=== PATIENT | female | born 1965 | race Two or more races ===

== ENCOUNTER 2020-07-15 11:01 | Outpatient (REF) | payer MEDICARE, MEDICAID, SELFPAY ==
[2020-07-15 11:28] LABS: MANUAL DIFF FLAG NO
[2020-07-15 11:33] LABS: Basophils Absolute Auto 0.1 X10*3/uL (0.0-0.2); Eosinophils Absolute Auto 0.1 X10*3/uL (0.0-0.4); Eosinophils Percent Auto 1.5 % (0-4); Hematocrit 45.6 % (37-47); Hemoglobin 14.9 g/dl (12.0-16.0); Imm Gran Abs Auto 0.03 X10*3/uL (0.00-0.03); Imm Gran Pct Auto 0.4 % (0.0-0.4); Lymphocytes Absolute Auto 3.3 X10*3/uL (1.2-4.9); Mean Corpuscular HGB Conc 32.7 g/dl (31.0-35.0); Mean Corpuscular Hemoglobin 29.2 pg (27.0-33.0); Mean Corpuscular Volume 89.2 fL (80-98); Mean Platelet Volume 8.9 fL (9.4-12.3); Monocytes Absolute Auto 0.6 X10*3/uL (0.1-1.2); Monocytes Percent Auto 7.5 % (2-11); Neutrophils Absolute Auto 4.3 X10*3/uL (2.0-8.3); Neutrophils Percent Auto 50.6 % (45-73); Platelet Count 339 X10*3/uL (160-400); Red Blood Count 5.11 X10*6/uL (4.20-5.50); Red Cell Distribution Width 13.2 % (11.0-16.0); White Blood Count 8.4 X10*3/uL (4.8-10.8)
[2020-07-15 12:11] LABS: Alanine Aminotransferase 15 U/L (0-31); Alkaline Phosphatase 66 U/L (39-117); Anion Gap 12 (12-20); Aspartate Amino Transferase 19 U/L (5-31); Bilirubin Total 0.6 mg/dL (0.0-1.0); Blood Urea Nitrogen 18 mg/dL (9-16); Calcium 8.9 mg/dL (8.4-10.2); Carbon Dioxide 27 mmol/L (22-29); Chloride 106 mmol/L (96-108); Estimated Glomerular Filt Rate 57; Glucose Fasting 86 mg/dL (60-99); Potassium 4.5 mmol/L (3.3-5.1); Sodium 140 mmol/L (135-145); Total Protein 6.4 g/dL (6.5-8.0)
[2020-07-15 12:21] LABS: TSH reflex Free T4 1.67 uIU/mL (0.32-4.0)
== END 2020-07-15 11:02 | disposition home or self-care (01) ==
LOC: HO.LAB 11:01
PROVIDERS: PCP Internal Medicine; Visit Provider Internal Medicine
DX: R53.82 Chronic fatigue, unspecified (principal); R56.9 Unspecified convulsions
CPT/HCPCS: 36415; 80053; 80177; 84443; 85025

== ENCOUNTER 2020-07-20 08:51 | Outpatient (REF) | payer MEDICARE, MEDICAID, SELFPAY ==
--- NOTE | 2020-07-20 15:01 | PFT_ITS ---
INDICATION: Shortness of breath. SPIROMETRY: The FEV1 to FVC of 88% with an FEV1 of 2.19 L, which is 86% predicted and an FVC of 2.49 L, which is 79% predicted. No significant response to bronchodilators noted. Maximum voluntary ventilation 115% predicted. LUNG VOLUMES: Total lung capacity 85% predicted with a residual volume of 78% predicted and an expiratory reserve volume of 55% predicted. DIFFUSION CAPACITY: DLCO 59% predicted. COMPARISON: None. INTERPRETATION: No obstructive nor restrictive ventilatory defects have been identified. No significant response to bronchodilators noted. Normal maximum voluntary ventilation. However, the patient has isolated moderate diffusion impairment, need to consider occult interstitial lung conditions versus pulmonary vascular conditions. Should also correct for hemoglobin as it can affect this diffusion calculation. Consider additional imaging and potentially echocardiogram. Clinical correlation warranted. Yuriy Ashley MD MR/MODL / [id number]
== END 2020-07-20 08:52 | disposition home or self-care (01) ==
LOC: HO.RESP 08:51
PROVIDERS: Visit Provider Internal Medicine
DX: R06.02 Shortness of breath (principal)
CPT/HCPCS: 94060; 94727; 94729

== ENCOUNTER 2020-08-11 12:58 | Outpatient (REF) | payer MEDICARE, MEDICAID, SELFPAY ==
--- NOTE | ~2020-08-11 | MM_ITS ---
EXAMINATION: MM SCREENING DIGITAL BREAST TOMOSYNTHESIS, BILATERAL CLINICAL INFORMATION: Screening. Asymptomatic. History right stereotactic INTACT biopsy 12/21/2016 (fragments of benign breast tissue with a focus of adenosis containing several coarse microcalcifications). History left stereotactic biopsy 10/06/2014 (benign breast tissue with a few tiny microcalcifications present and a benign breast tissue). The lifetime risk of breast cancer based on the Tyrer-Cuzick Model is 10%. COMPARISON: Mammography: 08/06/2019, 07/31/2018, 12/21/2016, 12/12/2016, at 29/08/2016; targeted left breast ultrasound 07/31/2018. TECHNIQUE: Digital mammography is performed in craniocaudal and mediolateral oblique views along with computer-aided detection (CAD). Digital breast tomosynthesis is performed in implant-displaced craniocaudal and implant-displaced mediolateral oblique views along with computer-aided detection (CAD). Synthesized 2D images are generated from the tomosynthesis. Additional implant displaced left exaggerated CC view is provided. FINDINGS: There are scattered areas of fibroglandular density (ACR BI-RADS breast composition Category b). There are bilateral implants. The implant contours are smooth and similar to prior studies. Right breast has biopsy clip marker posterior 1:00 position with benign oval coarse calcification inferior anterior activity left. There is no interval mass or architectural abnormality or abnormal calcifications right breast. Left breast has new 2 cm lobulated mass with ill-defined margins posterior upper outer quadrant and with associated overlying heterogeneous calcifications. Findings represent change from prior exam. There is an old biopsy clip marker more anteriorly upper outer left breast with small adjacent oil cyst and a known cyst in vicinity of biopsy and decreased in size since 2019. The axilla are similar to prior studies. Skin contours are smooth. MM/MM tomosynthesis screen imp BI IMPRESSION: 1. Left: New lobulated mass with associated heterogeneous calcifications posterior upper outer quadrant. 2. Right: No mammographic evidence of malignancy. ASSESSMENT: BI-RADS 0: Incomplete - Need Additional Imaging Evaluation RECOMMENDATION: 1. Additional views of the left breast (magnification CC, magnification ML). 2. Targeted ultrasound targeted ultrasound left breast. 3. Radiology department staff will contact the patient for additional imaging. This patient's information was entered into a reminder system with a target due date for their next mammogram.
== END 2020-08-11 12:59 | disposition home or self-care (01) ==
LOC: HO.MAMMO 12:58
PROVIDERS: PCP Internal Medicine; Visit Provider Internal Medicine
DX: Z12.31 Encounter for screening mammogram for malignant neoplasm of breast (principal)
CPT/HCPCS: 77063; 77067

== ENCOUNTER 2020-09-02 13:00 | Outpatient (RCR) | payer MEDICARE, MEDICAID, SELFPAY ==
--- NOTE | 2020-07-22 15:54 | MHC.PT.EP ---
[facility] [place] Office [place] Office [place] Office [address] Ross Chavez 140 [facility] [phone] F: [phone] F: [phone] F: [phone] F: [phone] Physical Therapy Plan of Care Date of Evaluation: 07/22/20 Date of Surgery: Diagnosis: leg weakness Assessment: The patient reports LE weakness that is making her fearful to be alone in public. She had exaggerated reflexes in both UE and LE at 3+. Her LE strength was generally functional with some weakness noted in her ankles. Her balance on foam surfaces was impaired and she lost her balance with head movement during static balance. The patient reports some issues with urinary incontinence with stress and urge. The patient has been treated for seizures in the past. She reports no Cardiac history. She will benefit from balance retraining, Pelvic floor retraining, LE strengthening as needed. I will report hyperreflexia to her primary MD. The patient seems genuine in her report and symptom presentation. Frequency and Duration: The patient will be seen 2x/week x 4 weeks Short Term Goals: 1. Pt to be able to correctly activate her PFM Resourcing Consultant Goals: 1. Pt to be able to have improved static balance on soft foam surfaces. 2. Pt to be able to successful demonstrate getting off the floor and functional movements such as squatting, bending. Treatment Plan: Modalities to reduce pain, spasms and effusion. Manual therapy to restore motion and function. Therapeutic exercise to improve strength and flexibility. Neuromuscular re-education for posture and balance. Therapeutic activities to return to functional activities of daily living. Electronically signed by: Isidra Stern PT DPT Please sign and return to therapist. Thank you for your referral.
--- NOTE | 2020-08-06 16:36 | MHC.PT.RE ---
[facility] [place] Office [place] Office [place] Office [address] Ross Chavez 140 [facility] [phone] F: [phone] F: [phone] F: [phone] F: [phone] Physical Therapy Re-evaluation Diagnosis: Urinary Incontinence, Pelvic Floor Rehabilitation Date of Surgery: Date of Evaluation: 08/06/20 Treatments to Date: 2 Cancellations to Date: 1 No Shows to Date: Subjective: I have bad urinary incontinence. It is very limiting to my life. I have incontinence with sneezing, coughing, laughing, jumping, running, and going down stairs. My urine stream is also altered sometimes when I pee and it stops and starts intermittently. Otherwise my knees are doing better. I have been doing my homework. Pain Score: 0 Pain Location: Objective Measures: PFM- 3 (no squeeze pressure from sides, only top and a lift 08/15/11/156 grade 2 Pelvic organ prolapse from anterior wall ( likely cystocele) I recommended Gynecology f/u. Assessment: The patient had poor awareness and control of her pelvic floor muscles and trA. Paired with her reported incontinence and feeling of heaviness in her pelvis. I believe she would benefit from pelvic floor Physical Therapy. Pt had grade 3 MMT of PFM. PERF scale: .Pt had poor coordination with quick contractions and had a delayed reaction to quick contractions. Pt lost contraction of PFM as soon as I added a functional movement such as a bridge, or leg lift. Pt also showed compensatory strategies during functional movement such as gluteal squeeze instead of PFM contraction. Pt reports no pain with penetration, but sex is not enjoyable. We discussed clitoral stimulation and the use of lubrication during intercourse. Pt given an extensive HEP including quick and long contractions of the PF. Pt will need to improve coordination and strength and slowly incorporate functional movements with PFM. Short Term Goals: 1. Pt to be able to correctly activate her PFM to allow improved support to bowel and bladder. 2. Pt to be able to demonstrate a pre contraction before a cough Game Agent Goals: 1. Pt to be able to show improved PFM contraction during functional movements such as a bridge or squat to help prevent or limit POP. 2. Pt to reduce # of episodes of NADJA during the day by 50% to help improve quality of life and reduce pad usage. 3. Pt to be independent with her final HEP for PFM in order to help maintain gains made in therapy. Frequency and Duration: The patient will be seen 2x/week x 4 weeks Treatment Plan: Therapeutic Exercise Dynamic Therapeutic Activities Neuromuscular Re-ed Manual Therapies Home Exercise Program Patient Education Electrical Stimulation PFM contraction including short and long contractions, TRA contraction, Slowly incorporate functional training with PFM contraction, coordination of PFM contraction. Start with hips elevated and progress to standing as pt is able. Reviewed/ Agreed with Student Documentation: Therapist: Electronically signed by: Isidra Stern PT DPT Please sign and return to therapist. Thank you for your referral.
== END 2020-10-09 08:00 | disposition home or self-care (01) ==
LOC: HO.PT 13:00
PROVIDERS: PCP Internal Medicine; Visit Provider Internal Medicine
DX: R29.898 Other symptoms and signs involving the musculoskeletal system (principal)
CPT/HCPCS: 97110; 97112; 97140; 97163; 97530

== ENCOUNTER 2020-09-04 12:15 | Outpatient (REF) | payer MEDICARE, MEDICAID, SELFPAY ==
--- NOTE | ~2020-09-04 | US_ITS ---
EXAMINATION: US DIAGNOSTIC ULTRASOUND BREAST, LEFT CLINICAL INFORMATION: Left breast mass upper outer aspect.. COMPARISON: Mammography of same day as well as studies dating back to September 18, 2014. TECHNIQUE: Ultrasound of the breast is performed with real-time arenas scale imaging and color Doppler. FINDINGS: Targeted ultrasound evaluation of the upper outer quadrant demonstrated 2 hypoechoic lesions. At the 1:00 position approximately 8 cm from nipple there is a 3 x 3 x 2 cm irregularly marginated hypoechoic mass containing calcifications and with internal vascularity. No distal sound enhancement or distal sound shadowing was appreciated. The lesion is very suspicious for malignancy. At the 2:00 position approximately 6 cm from the nipple there is a circumscribed hypoechoic lesion measuring 8 x 8 x 9 mm in size without internal vascularity and without definite distal sound shadowing or enhancement. Results are discussed with the patient at time of visit. US/US breast LT limited IMPRESSION: Very suspicious irregular marginated mass with calcifications and internal vascularity at the 1:00 position of the left breast approximately 8 cm from nipple measuring 3 cm in maximum dimension. The second circumscribed nodule 2:00 position approximately 6 cm from the nipple which may represent a daughter lesion. At time of study the axilla was not examined and therefore at the time of ultrasound-guided biopsy recommended imaging of the axilla for abnormal lymph nodes and if there is an abnormal lymph node present recommend ultrasound-guided core biopsy of both left breast lesions and lymph node. ASSESSMENT: BI-RADS 5: Highly Suggestive of Malignancy RECOMMENDATION: Ultrasound-guided biopsy of 2 left breast lesions. If abnormal axillary lymph node is present recommend biopsy of that at same time.
--- NOTE | ~2020-09-04 | MM_ITS ---
EXAMINATION: MM DIAGNOSTIC DIGITAL MAMMOGRAPHY, LEFT TARGETED LEFT BREAST ULTRASOUND CLINICAL INFORMATION: Left breast density with calcifications upper outer aspect. COMPARISON: Mammography: 08/11/2020 and studies dating back to 09/18/2014. TECHNIQUE: Digital mammography is performed in the following views: Spot magnification views of the left breast in craniocaudal and 90 degree mediolateral views. Targeted left breast ultrasound. FINDINGS: There are scattered areas of fibroglandular density (ACR BI-RADS breast composition Category b). Within the upper outer aspect of the left breast there is an irregularly marginated density containing pleomorphic calcifications. The calcifications did not layer on 90 degree mediolateral view. Targeted ultrasound evaluation of the upper outer quadrant demonstrated 2 hypoechoic lesions. At the 1 o'clock position approximately 8 cm from nipple there is a 3 x 3 x 2 cm irregularly marginated hypoechoic mass containing calcifications and with internal vascularity. No distal sound enhancement or distal sound shadowing was appreciated. The lesion is very suspicious for malignancy. At the 2 o'clock position approximately 6 cm from the nipple there is a circumscribed hypoechoic lesion measuring 8 x 8 x 9 mm in size without internal vascularity and without definite distal sound shadowing or enhancement. Results are discussed with the patient at time of visit. MM/MM added views LT IMPRESSION: Very suspicious irregular marginated mass with calcifications and internal vascularity at the 1 o'clock position of the left breast approximately 8 cm from nipple measuring 3 cm in maximum dimension. Second circumscribed nodule 2 o'clock position approximately 6 cm from the nipple which may represent a daughter lesion. At time of study the axilla was not examined and therefore at time of ultrasound-guided biopsy recommend imaging of the axilla for abnormal lymph nodes and if there is an abnormal lymph node present recommend ultrasound-guided core biopsy of both left breast lesions and lymph node. ASSESSMENT: BI-RADS 5: Highly Suggestive of Malignancy RECOMMENDATION: Ultrasound-guided biopsy of 2 left breast lesions. If abnormal axillary lymph node is present recommend biopsy of that at same time.
== END 2020-09-04 12:16 | disposition home or self-care (01) ==
LOC: HO.MAMMO 12:15
PROVIDERS: PCP Internal Medicine; Visit Provider Internal Medicine
DX: R92.1 Mammographic calcification found on diagnostic imaging of breast (principal)
CPT/HCPCS: 76642; 77065

== ENCOUNTER 2020-09-10 09:26 | Outpatient (REF) | payer MEDICARE, MEDICAID, SELFPAY ==
--- NOTE | ~2020-09-10 | MM_ITS ---
PROCEDURE: US GUIDED BREAST BIOPSY, LEFT x 2 MM DIAGNOSTIC IMPLANT, LEFT CLINICAL INFORMATION: Very suspicious left breast mass upper outer quadrant with prominent vascularity and calcifications. A second smaller lesion in the upper outer aspect of the left breast closer to the nipple. COMPARISON: 09/04/2020 and studies dating back to 09/18/2014 PROCEDURAL DETAILS: The details of the procedure, as well as the risks, benefits, and alternatives to the procedure were explained to the patient in detail and all of her questions were answered, after which written informed consent was obtained. Site and side were confirmed. Prior to procedure, ultrasound evaluation of the left axilla was performed to look for abnormal-appearing lymph nodes that may require biopsy. No abnormal lymph nodes were identified. No cortical thickening or lobulation. Prior to the procedure, sonography revealed a suspicious, irregularly marginated mass 1-o'clock position, 8 cm from nipple, containing calcifications and with distal sound shadowing. A second lesion at the 2-o'clock position, 6 cm from the nipple, was again identified as second target for biopsy. A time-out was performed, the lesion intended for biopsy was targeted, and the skin of the left breast was then prepped and draped in the usual sterile fashion. Using sonographic guidance, sterile technique, and 1% lidocaine without epinephrine for local anesthesia, multiple automated core biopsies were obtained through the targeted area with a 14G spring loaded Achieve core biopsy device. There was real-time confirmation of appropriate needle passage. Sampling was documented. At the completion of tissue sampling, a single open coil metallic clip was deposited at the biopsy site. Attention was then turned performing the same procedure on nodule at the 2-o'clock position, 6 cm from nipple, where a butterfly clip marker was placed. There was no evidence of immediate complication. SPECIMEN: An appropriate sample was obtained from each of the 2 biopsy sites. DIGITAL POST-PROCEDURE MAMMOGRAPHY: Breast density: The tissue is heterogeneously dense which may obscure small masses. BI-RADS version 5, category C. There are no new mammographic findings demonstrated. The postprocedure 2-view direct digital mammogram reveals satisfactory positioning of the 2 biopsy clips. The patient tolerated the procedure well and, after assuring adequate hemostasis, was discharged in good condition after reviewing postbiopsy breast care instructions. Final pathology results are pending. MM/MM diagnostic mammo implant LT IMPRESSION: 1. No immediate complication from ultrasound-guided percutaneous biopsies left breast. 2. Ultrasound was used to localize and guide marker clip placements. 3. The 2-view direct digital postprocedure mammogram reveals satisfactory positioning of the 2 biopsy clips. 4. Final pathology results are pending. A separate report with final recommendations will be issued once these results are made available.
--- NOTE | ~2020-09-10 | US_ITS ---
PROCEDURE: US GUIDED BREAST BIOPSY, LEFT x2 CLINICAL INFORMATION: Very suspicious left breast mass upper outer quadrant with prominent vascularity and calcifications. Second smaller lesion in the upper outer aspect of the left breast closer to the nipple. COMPARISON: September 04, 2020 and studies dating back to September 18, 2014 PROCEDURAL DETAILS: The details of the procedure, as well as the risks, benefits, and alternatives to the procedure were explained to the patient in detail and all of her questions were answered, after which written informed consent was obtained. Site and side were confirmed. Prior to procedure ultrasound evaluation of the left axilla was performed to look for abnormal-appearing lymph nodes that may require biopsy. No abnormal lymph nodes were identified. No cortical thickening or lobulation. Prior to the procedure, sonography revealed a suspicious irregularly marginated mass 1:00 position 8 cm from nipple containing calcifications and without distal sound shadowing. A second lesion at the 2:00 position 6 cm from the nipple was again identified second targeted for biopsy.. A time-out was performed, the lesion intended for biopsy was targeted, and the skin of the left breast was then prepped and draped in the usual sterile fashion. Using sonographic guidance, sterile technique, and 1% lidocaine without epinephrine for local anesthesia, multiple automated core biopsies were obtained through the targeted area with a 14G spring loaded Achieve core biopsy device. There was real-time confirmation of appropriate needle passage. Sampling was documented. At the completion of tissue sampling, a single open coil metallic clip was deposited at the biopsy site. Attention was then turned performing the same procedure on nodule at the 2:00 position 6 cm from nipple where a butterfly clip marker was placed. There was no evidence of immediate complication. SPECIMEN: An appropriate sample was obtained from each of the 2 biopsy sites. DIGITAL POST-PROCEDURE MAMMOGRAPHY: Breast density: The tissue is heterogeneously dense which may obscure small masses. BI-RADS version 5, category C. There are no new mammographic findings demonstrated. The postprocedure 2-view direct digital mammogram reveals satisfactory positioning of the 2 biopsy clips. The patient tolerated the procedure well and, after assuring adequate hemostasis, was discharged in good condition after reviewing postbiopsy breast care instructions. Final pathology results are pending. US/US breast LT limited IMPRESSION: 1. No immediate complication from ultrasound-guided percutaneous biopsies left breast. 2. Ultrasound was used to localize and guide marker clip placements. 3. The 2-view direct digital postprocedure mammogram reveals satisfactory positioning of the 2 biopsy clips. 4. Final pathology results are pending. A separate report with final recommendations will be issued once these results are made available.
== END 2020-09-10 09:27 | disposition home or self-care (01) ==
LOC: HO.MAMMO 09:26
PROVIDERS: Visit Provider Surgery
DX: N63.21 Unspecified lump in the left breast, upper outer quadrant (principal); C50.412 Malignant neoplasm of upper-outer quadrant of left female breast; Z17.0 Estrogen receptor positive status [ER+]
CPT/HCPCS: 19083; 19084; 76642; 77065; 88305; 88360; 99202

== ENCOUNTER → 2020-09-16 15:19 | Outpatient (BNVA) | payer MEDICARE, MEDICAID, SELFPAY | PROVIDERS: PCP Internal Medicine; Visit Provider Surgery | DX: C50.912 Malignant neoplasm of unspecified site of left female breast (principal) | CPT/HCPCS: 99212 ==

== ENCOUNTER → 2020-09-21 10:46 | Outpatient (BNV) | payer MEDICARE, MEDICAID, SELFPAY | PROVIDERS: PCP Internal Medicine; Referring Provider Surgery; Visit Provider Internal Medicine | DX: C50.412 Malignant neoplasm of upper-outer quadrant of left female breast (principal) | CPT/HCPCS: 99205; 99213; 99214; G2211 ==

== ENCOUNTER → 2020-09-25 07:20 | Outpatient (REF) | payer MEDICARE, MEDICAID, SELFPAY ==
--- NOTE | 2020-09-25 07:24 | CA_ITS ---
Transthoracic Echocardiogram Patient (Last, First, Middle): Princess Valle Z Gender: Female Date of : 1965 Age: 55 Procedure Date: 09/25/2020 Procedure Type: Transthoracic Echocardiogram Location: OP Height: 157.48 cm Weight: 65.77 kg BSA: 1.67 m2 Heart Rate: bpm BP: 98 / 60 mmHg Internal Revenue Agent: Caron MD: Ghazal Hernández MD Symptoms: pre chemo eval Conclusions: - Normal left ventricular size and systolic function. - The visually estimated ejection fraction is between 55-60%. - Diastolic function is normal for age. - Normal right ventricular cavity size and systolic function. Findings Procedure Information The patient receives contrast. Left Ventricle Normal left ventricular size and systolic function. There is mildly increased left ventricular wall thickness. The visually estimated ejection fraction is between 55-60%. There is no evidence of regional wall motion abnormalities. Diastolic function is normal for age. Right Ventricle Normal right ventricular cavity size and systolic function. Atria The left atrium is normal in size. Aortic Valve There is a normal trileaflet aortic valve. There is mild thickening of the aortic valve. There is no aortic valve stenosis. There is no aortic valve regurgitation. Mitral Valve Normal mitral valve structure and function. There is no mitral valve regurgitation. There is no mitral valve stenosis. Pulmonic Valve The pulmonic valve is likely normal. Tricuspid Valve Normal tricuspid valve structure. There is no tricuspid valve regurgitation. Normal right atrial pressure. There is no evidence of pulmonary hypertension. Great Vessels All visible segments of the aorta are normal in size. The visualized portions of the pulmonary artery and branches are normal. Venous The inferior vena cava is normal in size and collapses greater than 50% with inspiration. Pericardium/Pleural There is no evidence of pericardial effusion. Prior Study Comparison No prior study available for comparison. Measurements 2D Linear Measurements RVIDd: 2.43 RVIDd Index: 1.46 IVSd: 0.84 0.6-0.9/0.6-1.0 cm LVIDd: 4.26 3.9-5.3/4.2-5.9 cm LVIDd Index: 2.55 2.4-3.2/2.2-3.1 cm/m2 LVIDs: 3.05 2.0-3.6 cm LVPWd: 1.07 0.7-1.1 cm Ao Root: 2.60 2.1-3.5 cm LA Diam: 3.00 2.7-3.8/3.0-4.0 cm LAIDs Index: 1.80 1.5-2.3 cm/m2 LV Mass: 163.52 67-162/88-224 g LV Mass Index: 97.92 43-95/49-115 g/m2 LVOT Diam: 2.00 3.0+(-)1.3 cm 2D Systolic Function EF 4C: 58.10 >55% EF 2C: 38.10 >55% Mitral Valve MV Pk E: 0.92 MV PK A: 0.70 MV Decel Time: 105.00 E/A: 1.30 E'Lateral: 9.90 E'Medial: 11.40 E/E' Med: 8.10 E/E' Lat: 9.30 PHT: 31.00 MVA PHT: 7.10 Decel [place]: 8.82 Aortic Valve AoV Pk Herb: 1.16 AoV Mn Herb: 0.80 AoV VTI: 0.25 AoV Pk Grad: 5.00 Aov Mn Grad: 3.00 LVOT LVOT Diam: 2.00 LVOT Area: 3.14 Diastolic Function MV Pk E: 0.92 MV Pk A: 0.70 E/A: 1.30 E'Medial: 11.40 E/E' Med: 8.10 E' Laterial: 9.90 E/E' Lat: 9.30 Tricuspid Valve RVSP: 17.00 Great Vessels Aorta Ao Root-2D: 2.60 2.0-3.7 cm Ao Asc: 2.40 2.1-3.4 cm Ao Arch: 2.20 Updated in Other Vendor System with Status of Final Mike Michel MD electronically signed on 09/29/2020 8:22:31 AM with status of Final
== END ==
LOC: HO.CARD 07:20
PROVIDERS: Visit Provider Internal Medicine
DX: C50.912 Malignant neoplasm of unspecified site of left female breast (principal)
CPT/HCPCS: 93306; Q9957

== ENCOUNTER 2020-09-25 09:04 | Day surgery (SDC) | payer MEDICARE, MEDICAID, SELFPAY ==
--- NOTE | ~2020-09-25 | IR_ITS ---
PROCEDURE: IR INSERTION OF TUNNEL CATHETER CLINICAL INFORMATION: Breast cancer COMPARISON: None TECHNIQUE: Procedure risks and benefits including bleeding, infection and pneumothorax were discussed with the patient through an tack cutter and informed consent was obtained. All elements of maximal sterile barrier technique followed including use of cap, mask, sterile gown, sterile gloves, a sterile full body drape and hand hygiene. Also followed skin preparation with 2% chlorhexidine for cutaneous antisepsis, and sterile ultrasound preparation with sterile gel and probe cover when applicable. The right chest was prepped and draped in the usual sterile fashion. The skin and soft tissues of the right lower neck were anesthetized with 1% lidocaine plain. A small incision was made. Using ultrasound guidance and a 5 Czech micropuncture system, right internal jugular vein access was obtained. Over an 018 wire, a 5 Czech dilator was positioned in the SVC. The skin and soft tissues of the right upper chest were prepped and draped in usual sterile fashion. A small incision was made. Using blunt dissection, subcutaneous pocket was created. A subcutaneous tunnel from the chest to the neck incision was anesthetized with 1% lidocaine plain. Using a tunneler, a 6.6 Czech single-lumen catheter was tunneled from the chest to the neck incision. The catheter was attached to the port. The port and catheter were flushed. The port was positioned in the subcutaneous pocket and secured using 220 nonabsorbable sutures. An 035 guidewire was advanced through the 5 Czech dilator into the IVC. 5 Czech dilator was exchanged for a 7 Czech peel-away sheath. Using bent wire technique, catheter length was estimated and the catheter was cut. Catheter length is 17.5 cm. The catheter was fed through the peel-away sheath. The neck incision was closed using a 4 oh absorbable subcuticular suture. Chest incision was closed using 330 absorbable interrupted sutures followed by a running 4 oh absorbable subcuticular suture. The port was accessed. The port had good blood return, flushed easily and was instilled with heparin 5 mL 100 unit per mL solution. Real-time ultrasound guidance was used to document vein patency and for needle entry. A formal ultrasound picture was recorded. Fluoroscopy time 0.6 minutes. DAP 58 CG Y per centimeter squared. 1 saved fluoroscopic image. Total sedation time 40 minutes. FINDINGS: There is a right internal jugular Port-A-Cath with tip projecting over the SVC. IR/IR cvc insert tunnel w prt/jail officer IMPRESSION: Right internal jugular 6.6 Czech single-lumen dignity Port-A-Cath placement.
--- NOTE | ~2020-09-25 | IR_ITS ---
PROCEDURE: IR INSERTION OF TUNNEL CATHETER CLINICAL INFORMATION: Breast cancer COMPARISON: None TECHNIQUE: Procedure risks and benefits including bleeding, infection and pneumothorax were discussed with the patient through an imaging nurse and informed consent was obtained. All elements of maximal sterile barrier technique followed including use of cap, mask, sterile gown, sterile gloves, a sterile full body drape and hand hygiene. Also followed skin preparation with 2% chlorhexidine for cutaneous antisepsis, and sterile ultrasound preparation with sterile gel and probe cover when applicable. The right chest was prepped and draped in the usual sterile fashion. The skin and soft tissues of the right lower neck were anesthetized with 1% lidocaine plain. A small incision was made. Using ultrasound guidance and a 5 Syrian micropuncture system, right internal jugular vein access was obtained. Over an 018 wire, a 5 Syrian dilator was positioned in the SVC. The skin and soft tissues of the right upper chest were prepped and draped in usual sterile fashion. A small incision was made. Using blunt dissection, subcutaneous pocket was created. A subcutaneous tunnel from the chest to the neck incision was anesthetized with 1% lidocaine plain. Using a tunneler, a 6.6 Syrian single-lumen catheter was tunneled from the chest to the neck incision. The catheter was attached to the port. The port and catheter were flushed. The port was positioned in the subcutaneous pocket and secured using 220 nonabsorbable sutures. An 035 guidewire was advanced through the 5 Syrian dilator into the IVC. 5 Syrian dilator was exchanged for a 7 Syrian peel-away sheath. Using bent wire technique, catheter length was estimated and the catheter was cut. Catheter length is 17.5 cm. The catheter was fed through the peel-away sheath. The neck incision was closed using a 4 oh absorbable subcuticular suture. Chest incision was closed using 330 absorbable interrupted sutures followed by a running 4 oh absorbable subcuticular suture. The port was accessed. The port had good blood return, flushed easily and was instilled with heparin 5 mL 100 unit per mL solution. Real-time ultrasound guidance was used to document vein patency and for needle entry. A formal ultrasound picture was recorded. Fluoroscopy time 0.6 minutes. DAP 58 CG Y per centimeter squared. 1 saved fluoroscopic image. Total sedation time 40 minutes. FINDINGS: There is a right internal jugular Port-A-Cath with tip projecting over the SVC. IR/IR us guide venous access IMPRESSION: Right internal jugular 6.6 Syrian single-lumen dignity Port-A-Cath placement.
[2020-09-25 09:14] VITALS: BP 113/69; PULSE 68; RESP 18; TEMP 36.7; O2SAT 100; BMI 26.5
[2020-09-25 09:32] LABS: Glucose, Whole Blood 94 mg/dL (60-115)
[2020-09-25 12:40] VITALS: BP 102/82; PULSE 65; RESP 16; TEMP 36.6; O2SAT 95
[2020-09-25 13:13] VITALS: BP 102/55; PULSE 71; RESP 18; O2SAT 94
[2020-09-25 13:44] VITALS: BP 107/66; PULSE 74; RESP 18; TEMP 36.7; O2SAT 97
== END 2020-09-25 13:45 | disposition home or self-care (01) ==
PROVIDERS: PCP Internal Medicine; Visit Provider Radiology Diagnostic Radiology
DX: Z45.2 Encounter for adjustment and management of vascular access device (principal); C50.912 Malignant neoplasm of unspecified site of left female breast; Z79.899 Other long term (current) drug therapy; F17.210 Nicotine dependence, cigarettes, uncomplicated
CPT/HCPCS: 36561; 76937; 82947; 99152; 99153; C1769; C1788; J0690; J1642; J2250; J3010

== ENCOUNTER → 2020-10-15 10:29 | Outpatient (BNVA) | payer MEDICARE, MEDICAID, SELFPAY | PROVIDERS: PCP Internal Medicine; Referring Provider Internal Medicine; Visit Provider Surgery | DX: C50.912 Malignant neoplasm of unspecified site of left female breast (principal) | CPT/HCPCS: 99212 ==

== ENCOUNTER → 2021-01-11 07:28 | Outpatient (REF) | payer MEDICARE, MEDICAID, SELFPAY ==
--- NOTE | 2021-01-11 07:43 | CA_ITS ---
Transthoracic Echocardiogram Patient (Last, First, Middle): Princess Valle Z Gender: Female Date of : 1965 Age: 55 Procedure Date: 01/11/2021 Procedure Type: Transthoracic Echocardiogram Location: OP Height: 157.48 cm Weight: 68.04 kg BSA: 1.69 m2 Heart Rate: bpm BP: 122 / 70 mmHg Professional Development Director: PASTOR Referring MD: Ghazal Hernández MD Symptoms: on herceptin Study Quality: Fair ECG Rhythm: Sinus Conclusions: - The left ventricular systolic function is normal. The visually estimated ejection fraction is between 60-65%. Findings Left Ventricle Normal left ventricular cavity size. There is normal left ventricular wall thickness. The left ventricular systolic function is normal. The visually estimated ejection fraction is between 60-65%. There is no evidence of regional wall motion abnormalities. Diastolic function is normal for age. Prior Study Comparison No significant change compared to prior study dated: 09/25/2020. Measurements 2D Linear Measurements IVSd: 0.72 0.6-0.9/0.6-1.0 cm LVIDd: 4.47 3.9-5.3/4.2-5.9 cm LVIDd Index: 2.64 2.4-3.2/2.2-3.1 cm/m2 LVIDs: 2.62 2.0-3.6 cm LVPWd: 0.68 0.7-1.1 cm LV Mass: 117.25 67-162/88-224 g LV Mass Index: 69.38 43-95/49-115 g/m2 2D Systolic Function EF 4C: 57.70 >55% EF 2C: 61.90 >55% EF BiP: 61.40 >55% Mitral Valve MV Pk E: 0.96 MV PK A: 0.73 MV Decel Time: 174.00 E/A: 1.30 E'Lateral: 9.57 E'Medial: 10.10 E/E' Med: 9.50 E/E' Lat: 10.00 PHT: 51.00 MVA PHT: 4.31 Decel [place]: 5.51 Diastolic Function MV Pk E: 0.96 MV Pk A: 0.73 E/A: 1.30 E'Medial: 10.10 E/E' Med: 9.50 E' Laterial: 9.57 E/E' Lat: 10.00 Right Ventricle TAPSE (mm): 2.43 TVS' Herb: 10.30 Tricuspid Valve TR Pk Herb: 2.00 TR Pk Grad: 16.00 Updated in Other Vendor System with Status of Final John Thomas MD electronically signed on 01/11/2021 1:45:14 PM with status of Final
== END ==
LOC: HO.CARD 07:28
PROVIDERS: PCP Internal Medicine; Visit Provider Internal Medicine
DX: Z92.21 Personal history of antineoplastic chemotherapy (principal); T45.1X5A Adverse effect of antineoplastic and immunosuppressive drugs, initial encounter; Z79.899 Other long term (current) drug therapy
CPT/HCPCS: 93306

== ENCOUNTER 2021-01-25 09:44 | Outpatient (REF) | payer MEDICARE, MEDICAID, SELFPAY ==
--- NOTE | ~2021-01-25 | MM_ITS ---
EXAMINATION: MM DIAGNOSTIC DIGITAL BREAST TOMOSYNTHESIS, LEFT US DIAGNOSTIC ULTRASOUND BREAST, LEFT CLINICAL INFORMATION: 55-year-old with recent diagnosis invasive ductal cancer upper outer left breast. Reassess left breast status post neoadjuvant chemotherapy. Ultrasound biopsy left breast 1:00 position 09/10/2020 (invasive ductal carcinoma, MSBR grade 3. Ductal carcinoma in situ, nuclear grade 3, with necrosis. ER positive, WV positive, HER-2 +3+). Ultrasound biopsy left breast 2:00 position 09/10/2020 (benign breast tissue with fibrocystic changes, stromal fibrosis, chronic inflammation, and features of ruptured duct; no atypia or malignancy identified). COMPARISON: Mammography: Mammography: 08/06/2019, 08/11/2020, 09/04/2020, 09/10/2020; targeted left breast ultrasound 09/04/2020, ultrasound-guided left breast core biopsy (2 sites) 09/10/2020. TECHNIQUE: Digital mammography is performed in craniocaudal and mediolateral oblique views. Digital breast tomosynthesis is performed in implant-displaced craniocaudal and implant-displaced mediolateral oblique views. Synthesized 2D images are generated from the tomosynthesis. Computer-aided detection (CAD) is performed for this exam. Additional views are obtained: Implant displaced exaggerated CC, magnification CC, magnification ML. Ultrasound left breast is targeted to the upper outer quadrant. Grayscale imaging and color Doppler are performed without and with harmonics. Additional imaging left axilla also performed. FINDINGS: There are scattered areas of fibroglandular density (ACR BI-RADS breast composition Category b). The left implant contours are smooth and similar to prior studies. The mass posterior upper outer left breast with associated heterogeneous calcifications is decreased in size and attenuation. The calcifications appear stable. There is a HydroMARK open coil shaped clip overlying the lesion. Approximately 3 cm anterior to the mass is a HydroMARK butterfly shaped clip marker consistent with the 2nd site of recent biopsy (benign results 2nd site). There is no visible mass adjacent to this clip. The remainder of the left breast is unremarkable. Ultrasound: Ultrasound of the known malignancy posterior upper outer left breast 1:00 position 8 cm from nipple is decreased in size. Current measurements are 2.1 x 0.8 x 1.4 cm compared with prior measurements in same remeasured in same orientation, 3.0 x 1.7 x 2.9 cm. There is a biopsy clip marker seen at the margin of the lesion. The mass is less hypoechoic than on prior imaging. There is a second biopsy clip marker anterior to the known malignancy representing the site of benign biopsy. The previously noted hypoechoic nodule at this site is no longer demonstrated. Additional imaging left axilla demonstrates no lymphadenopathy. Imaging results are discussed with the patient at time of visit. MM/MM tomosynthesis diagnostic LT IMPRESSION: 1. Biopsy-proven malignancy posterior upper outer left breast is decreased in size. Current measurements on ultrasound are 2.1 x 0.8 x 1.4 cm compared with prior measurements on ultrasound of 3.0 x 1.7 x 2.9 cm. No lymphadenopathy. 2. The second site of biopsy (benign pathology results at 2:00 position) shows no residual nodule in the area of sampling. ASSESSMENT: BI-RADS 6: Known Biopsy-Proven Malignancy RECOMMENDATION: Continue with oncology and surgical management plans. This patient's information was entered into a reminder system with a target due date for their next mammogram.
== END 2021-01-25 09:45 | disposition home or self-care (01) ==
LOC: HO.MAMMO 09:44
PROVIDERS: Visit Provider Internal Medicine
DX: C50.412 Malignant neoplasm of upper-outer quadrant of left female breast (principal); Z92.21 Personal history of antineoplastic chemotherapy
CPT/HCPCS: 76642; 77061; 77065

== ENCOUNTER → 2021-02-11 11:26 | Outpatient (BNVA) | payer MEDICARE, MEDICAID, SELFPAY | PROVIDERS: PCP Internal Medicine; Referring Provider Internal Medicine; Visit Provider Surgery | DX: C50.412 Malignant neoplasm of upper-outer quadrant of left female breast (principal) | CPT/HCPCS: 99212 ==

== ENCOUNTER 2021-04-09 08:53 | Day surgery (SDC) | payer MEDICARE, MEDICAID, SELFPAY ==
[2021-04-05 14:01] VITALS: BMI 26.5
--- NOTE | 2021-04-08 11:11 | P.CONAN_ITS ---
Documented by User: Cata Harding NP 04/08/21 11:14 HPI - Anesthesia Eval Consult details Narrative: 55yo F for Left Breast Sentinal Node Biopsy, Biopsy Needle Localization, Lumpectomy s/p Chemo 09/2020-01/2021 PMF Active Problems Active Problems: All Active Problems (Updated 03/30/21 @ 13:33 by Ghazal Hernández MD) JOSI (generalized anxiety disorder) (Acute) Mild recurrent major depression (Acute) GERD (gastroesophageal reflux disease) (Acute) Invasive ductal carcinoma of left breast (Chronic) H/O abdominoplasty (Acute) Left breast mass (Acute) Pelvic floor weakness (Acute) Shortness of breath (Acute) Daytime sleepiness (Acute) Snoring (Acute) Leg weakness (Acute) Chronic fatigue (Acute) Depression with anxiety (Acute) Seizures (Acute) Past Medical History Medical History Chronic fatigue Daytime sleepiness Depression with anxiety JOSI (generalized anxiety disorder) GERD (gastroesophageal reflux disease) Invasive ductal carcinoma of left breast Left breast mass Leg weakness Mild recurrent major depression Pelvic floor weakness Seizures Shortness of breath Snoring Family History Family History Father CVD (cardiovascular disease) Mother Hypertension Daughter No problems noted. Family/Other FH: mental illness Surgical History Surgical History H/O abdominoplasty History of bilateral breast implants History of breast biopsy History of tubal ligation Social History Social History Housing: House Alcohol intake: former Patient Tobacco Use Status: Former Tobacco user Quit Date: 02/03/2021 Tobacco use type: Cigarette Cigarettes Per Day: 1 Years Smoked: 35 e-Cigarette/Vaping Use: Never Used Second Hand Smoke Exposure: No service: No Current occupational status: unemployed Meds Allergies Allergy/AdvReac Type Severity Reaction Status Date / Time No Known Allergies Allergy Verified 04/09/21 09:26 Home Medications Medication Instructions Recorded Confirmed Last Taken Type citalopram 40 mg tablet 40 mg PO BEDTIME 07/02/20 04/05/21 Unknown History levetiracetam 500 mg tablet 500 mg PO Q12H 0104/05/21 04/09/21 08:30 History (Keppra) lorazepam 0.5 mg tablet 0.5 mg PO BEDTIME PRN 04/05/21 04/05/21 Unknown History omeprazole 20 mg tablet,delayed 20 mg PO DAILY PRN 04/05/21 04/05/21 Unknown History release Exam Exam Date and Time: April 08, 2021 1111 Height,Weight and Vital Signs: Height 5 ft 2 in Weight 65.771 kg Narrative Narrative: ECHO 01/2021 (post chemo) Conclusions: - The left ventricular systolic function is normal.? The visually estimated ejection fraction is between 60-65%. ?? Assessment and Plan Assessment Anesthesia Assessment: Chart Reviewed Documented by User: Ezio Cuello MD 04/09/21 13:01 [facility] Past Medical History Medical History Chronic fatigue Daytime sleepiness Depression with anxiety JOSI (generalized anxiety disorder) GERD (gastroesophageal reflux disease) Invasive ductal carcinoma of left breast Left breast mass Leg weakness Mild recurrent major depression Pelvic floor weakness Seizures Shortness of breath Snoring Patient : No Family History Family History Father CVD (cardiovascular disease) Mother Hypertension Daughter No problems noted. Family/Other FH: mental illness Family history of problems with anesthesia: No Surgical History Surgical History H/O abdominoplasty History of bilateral breast implants History of breast biopsy History of tubal ligation History of Problems with Anesthesia: No Social History Social History Housing: House Alcohol intake: former Patient Tobacco Use Status: Former Tobacco user Quit Date: 02/03/2021 Tobacco use type: Cigarette Cigarettes Per Day: 1 Years Smoked: 35 e-Cigarette/Vaping Use: Never Used Second Hand Smoke Exposure: No service: No Current occupational status: unemployed Meds Allergies Allergy/AdvReac Type Severity Reaction Status Date / Time No Known Allergies Allergy Verified 04/09/21 09:26 Home Medications Medication Instructions Recorded Confirmed Last Taken Type citalopram 40 mg tablet 40 mg PO BEDTIME 07/02/20 04/05/21 Unknown History levetiracetam 500 mg tablet 500 mg PO Q12H 07/02/20 04/05/21 04/09/21 08:30 History (Reyna) lorazepam 0.5 mg tablet 0.5 mg PO BEDTIME PRN 04/05/21 04/05/21 Unknown History omeprazole 20 mg tablet,delayed 20 mg PO DAILY PRN 04/05/21 04/05/21 Unknown History release Exam Airway Mallampati Class: I TM Dist: >3cm Neck ROM: Full Loose/Missing/Broken Teeth: No Heart: ok Lungs: ok Assessment and Plan Final Anesthetic Review Family History of Problems with Anesthesia: No History of Problems with Anesthesia: No ASA Class: III Final Preanesthetic Review: No Changes in Pt Med Stat, Meds/Allgs Chart Reviewed, Consent Obtained/Reviewed and Anes Risks/Benef Reviewed Patient Risk: Intermediate Procedure Risk: Low Anesthetic Plan Anesthetic Plan: GA and Agree w/ Assess. and Plan Disposition: Standard PACU
[2021-04-09] VITALS (10 sets, daily range): BP systolic 107–119; BP diastolic 61–71; PULSE 63–76; RESP 14–16; TEMP 36.3–36.8; O2SAT 97–99
--- NOTE | ~2021-04-09 | MM_ITS ---
EXAMINATION: Ultrasound GUIDED NEEDLE LOCALIZATION BREAST, LEFT MM NEEDLE LOCALIZATION SPECIMEN FROM THE LEFT BREAST CLINICAL INFORMATION: Invasive ductal carcinoma COMPARISON: January 25, 2021 TECHNIQUE NEEDLE LOC: Proper informed consent is obtained from the patient after discussion of the procedure, potential risks and complications, and alternatives including declining the procedure today. Patient was given an opportunity for questions. The patient appeared to understand. The patient consented to the procedure and signed the consent form. GUIDANCE: Ultrasound APPROACH: Craniocaudal with a 5 cm needle. TARGET: Clip and mass. ANESTHESIA: lidocaine 1%: 2 cc. LOCALIZATION MARKER: Marianna MammaLok. The skin is prepped and local anesthesia administered. The needle is positioned and position assessed with ultrasound. The wire is hooked into position. [place] needle protector placed. The patient tolerated the procedure well and had no immediate complication. Following the procedure, 4% lidocaine ointment was administered to the left areola and covered with Tegaderm in anticipation of nuclear lymphoscintigraphy injection for sentinel lymph node mapping. TECHNIQUE SPECIMEN RADIOGRAPH: Imaging of the excised specimen is performed using digital mammography after pathology specimen had been sliced. FINDINGS SPECIMEN RADIOGRAPH: The biopsy clip marker and index calcifications are identified in the specimen. MM/MM diagnostic mammo unilat LT IMPRESSION: 1. Status post left breast needle localization with wire hooked into position. 2. Post operative specimen radiograph obtained.
--- NOTE | ~2021-04-09 | NM_ITS ---
EXAMINATION: NM LYMPHOSCINTIGRAPHY BREAST, LEFT CLINICAL INFORMATION: Invasive ductal cancer left breast. Patient has had neoadjuvant chemotherapy. COMPARISON: Mammography 08/11/2020, 09/04/2020, 09/10/2020, 01/25/2021 TECHNIQUE: Informed consent was obtained prior to the exam. Lidocaine gel administered to areola within 60 minutes of the procedure. Technetium 99m-Tilmanocept was as divided into 4 syringes with intradermal administration at 4 quadrants around the areola. The patient tolerated the procedure well. Imaging is performed in 3 views within 30 minutes and 60 minutes postinjection, respectively. FINDINGS: There is strong activity around the areola. There is no visible axillary or internal mammary activity noted by 60 minutes. NM/NM sentinel node w imaging IMPRESSION: Status post breast radionuclide lymphoscintigraphy for sentinel lymph node mapping.
[2021-04-09] MEDS: Lactated Ringers 1,000 ML 100 ML IVCONT (09:39)
--- NOTE | 2021-04-09 12:24 | MHC.SHP ---
Pre-Procedural Eval Section A Date of Service: 04/09/21 Section B Chief Complaint: Invasive ductal carcinoma of left breast Details of Present Illness: Has invasive ductal carcinoma of the left breast, underwent neoadjuvant chemotherapy Relevant Family History (Specify if Yes): No Relevant Social History: None Present Medications: see Short Stay Collaborative assessment Medical History: Significant History (GERD, anxiety and depression, chronic fatigue syndrome) Allergies: Allergies Allergy/AdvReac Type Severity Reaction Status Date / Time No Known Allergies Allergy Verified 04/09/21 09:26 Review of Systems Sugical H&P ROS: Negative: Constitution, Cardiovascular, Respiratory, Neurological, Psychiatric, Hem-Onc, Allergic/Immunologic, Gastrointestinal, Genitourinary, Musculoskeletal, Integumentary, Endocrine and Eyes/Ears/Nose/Throat Exam Surgical H&P Exam: Normal: HEENT, Normal: Heart, Normal: Lungs, Normal: Extremities, Normal: Abdomen, Normal: Skin and Normal: Neurological Exam Comment: Left breast mass Plan Diagnosis/Plan: Unchanged I have reviewed the history and physical and performed a pertinent physical examination on my patient. No changes have occurred unless specified.
--- NOTE | 2021-04-09 14:34 | W.PM.OPN ---
Operative Note Operative Note Date of Service: 04/09/21 Narrative: Preop diagnosis: Invasive ductal carcinoma, left breast Postop diagnosis: Invasive ductal carcinoma left breast Procedure: Lumpectomy, left breast, with needle localization, sentinel node biopsy; Surgeon: Rhett Joyner MD regional administrative assistant: SILVINO Finley The patient is a 55-year-old female who had been diagnosed invasive ductal carcinoma on of breast biopsy. She was referred to the oncologist 1st who had decided to proceed with neoadjuvant chemotherapy in view of the size of the tumor. She came back to me after adjuvant chemotherapy. A follow-up ultrasound had showed that the mass had decreased in size significantly. After discussions with the oncologist, we schedule her for lumpectomy with needle localization and sentinel node biopsy. She understood the technique of procedure. She aware of the risks, benefits, and alternatives She was brought to the operating room placed supine the table under general anesthesia via laryngeal mask airway. The left breast as well as the left axilla were prepped draped usual sterile fashion. A surgical time-out was done to the patient received cefazolin 2 g IV preoperatively The patient had earlier undergone needle localization using an ultrasound and I discussed this with the radiologist Dr. Patterson. The patient had also undergone scintigraphy for sentinel nodes in the left axilla. I had also reviewed this and after waiting for 60 minutes, we could not identify any sentinel node on scintigraphy earlier. I therefore injected the periareolar tissue with blue dye as well in case we were able identify any sentinel node with this method. After prepping and draping, I infiltrated the planned line of incision using lidocaine 1%. The localizing needle was seen in the left upper outer quadrant, entering the breast in an inferomedial direction. I made an incision on the skin just tangential to this needle using a blade 15. This carried down through the full-thickness skin subcutaneous fat. I then proceeded to use the Panda scissors to divide the breast tissue surrounding the needle. We periodically check direction of needle to make sure that we were removing adequate breast tissue surrounding this. We used the scissors to continue to dissect circumferentially around the needle and proceeded to dissect all around the tip of the needle, making sure that we were past the curve of the localized needing itself. Again, care was taken to make sure that we had wide margins around the needle to ensure complete excision of the lesion The specimen was then sent for immediate gross and a reray was also ordered. We irrigated the area of excision. We observed for hemostasis. The decision was actually just adjacent to the oral aspect pectoralis major so had good access to the axilla and we did not need to make another incision because of this. We had changed gloves and setup. By retracting the skin my were able to direct the nuclear probe to the axilla. We could not locate any elevated signals initially. I continued to scan the apex of the axilla. We could not identify any areas that would resemble dye. However, at one point, I as able to get an elevated count of 51. The rest of the background counts in the axilla was actually 0. I followed this elevated count with the probe and continued to dissect sharply with the Metzenbaum scissors until was able to identify a lymph node. This lymph node was excised and was sent as sentinel node # 1. We then continued to scan entire axilla and the area under the pectoralis for any other elevated counts. There was none. We could not identify any blue streaks as well in the tissue. We again copiously irrigated. Observed for hemostasis, once hemostasis was ensured, I proceeded to then wait for word from the pathologist as well as the results of the rewrite The pathologist then called to say that the entire localizing wire was within the specimen but there was no obvious gross neoplastic process. I went downstairs to examine the re ray images and I was able to see the biopsy coil which was within the specimen. This was the area that was malignant on the previous biopsy. Once we confirmed that the biopsy coil for the malignant area was within the specimen, proceeded to then went back to the OR. We completed closure of the incision. The subcutaneous layer was reapposed with Dexon 3-0 interrupted sutures and skin closure was achieved with Dexon 4-0 subcuticular stitch. Steri-Strips dressings were applied and the procedure was completed. The patient tolerated the procedure well. There were no complications noted. Initial and final counts of sponges and instruments were correct. Estimated blood loss was about 20 cc. The patient is extubated without difficulty and transferred to the recovery room with stable vital signs. Breast [place] Node Biopsy Substrate(s) used for sentinel node biopsy in the neoadjuvant setting: Dye and Radiotracer All colored nodes or non-colored nodes present at the end of a dye filled lymphatic channel were removed, if dye was used as the substrate for localization: N/A All significantly radioactive nodes were removed, if radionuclide was used as the substrate for localization: Yes All palpably suspicious nodes were removed, if present: N/A If clips were placed in pathology-involved nodes, those nodes were identified and removed: N/A General Surg. - Synoptic Notes Breast [place] Node Biopsy Substrate(s) used for sentinel node biopsy in the neoadjuvant setting: Dye and Radiotracer All colored nodes or non-colored nodes present at the end of a dye filled lymphatic channel were removed, if dye was used as the substrate for localization: N/A All significantly radioactive nodes were removed, if radionuclide was used as the substrate for localization: Yes All palpably suspicious nodes were removed, if present: N/A If clips were placed in pathology-involved nodes, those nodes were identified and removed: N/A
--- NOTE | 2021-04-09 14:43 | P.BOP_ITS ---
Brief Operative Note Date of Service: 04/09/21 Pre-op diagnosis: Invasive ductal carcinoma left breast Post-op diagnosis: same Procedure: Left breast lumpectomy with needle localization, sentinel node biopsy Surgeon: Rhett Joyner MD Anesthesia: GLMA Was an Product Safety Expert used for this Procedure?: Yes Product Safety Expert: Amy Finley Estimated blood loss (mL): 25 Pathology: other (Lumpectomy specimen and sentinel node with a count of 51) Condition: stable Disposition: PACU
[2021-04-09] MEDS: Acetaminophen 325 MG TABLET 650 MG PO (15:43)
== END 2021-04-09 16:33 | disposition home or self-care (01) ==
PROVIDERS: PCP Internal Medicine; Visit Provider Surgery
PROC: (CPT 19301; principal; 2021-04-09 13:00)
PROC: (CPT 19301; 2021-04-09 13:00)
PROC: (CPT 19301; 2021-04-09 13:00)
DX: C50.412 Malignant neoplasm of upper-outer quadrant of left female breast (principal); Z17.0 Estrogen receptor positive status [ER+]; R53.1 Weakness; F33.0 Major depressive disorder, recurrent, mild; R56.9 Unspecified convulsions; N81.89 Other female genital prolapse; R06.02 Shortness of breath; Z98.82 Breast implant status; Z98.51 Tubal ligation status; Z87.891 Personal history of nicotine dependence; Z79.899 Other long term (current) drug therapy
CPT/HCPCS: 19301; 38525; 19285; 77065; 78195; 88307; 88329; 88341; 88342; A4648; A9520; J0690; J2250; J3010; Q9968

== ENCOUNTER → 2021-04-21 13:23 | Outpatient (BNVA) | payer MEDICARE, MEDICAID, SELFPAY | PROVIDERS: PCP Internal Medicine; Referring Provider Internal Medicine; Visit Provider Surgery | DX: C50.912 Malignant neoplasm of unspecified site of left female breast (principal); F17.210 Nicotine dependence, cigarettes, uncomplicated; Z98.82 Breast implant status | CPT/HCPCS: 99212 ==

== ENCOUNTER → 2021-05-20 10:59 | Outpatient (BNVA) | payer MEDICARE, MEDICAID, SELFPAY | PROVIDERS: PCP Internal Medicine; Referring Provider Internal Medicine; Visit Provider Surgery | DX: Z48.3 Aftercare following surgery for neoplasm (principal); D05.12 Intraductal carcinoma in situ of left breast | CPT/HCPCS: 99212 ==

== ENCOUNTER → 2021-06-15 08:26 | Outpatient (REF) | payer MEDICARE, MEDICAID, SELFPAY ==
--- NOTE | 2021-06-15 08:30 | CA_ITS ---
Transthoracic Echocardiogram Patient (Last, First, Middle): Princess Valle Z Gender: Female Date of : 1965 Age: 56 Procedure Date: 06/15/2021 Procedure Type: Transthoracic Echocardiogram Location: OP Height: 157.48 cm Weight: 66.68 kg BSA: 1.68 m2 Heart Rate: bpm BP: 110 / 70 mmHg Bung Dropper: CELSO Referring MD: Ghazal Hernández MD Dance Entertainer: Tk Garcia MD Symptoms: CHEMOTHERAPY, UNDERGO HERCEPTINE Study Quality: Technically Difficult ECG Rhythm: Sinus Conclusions: - Normal LV systolic function with LVEF of 55-60% with impaired relaxation filling pattern Findings Left Ventricle Normal left ventricular cavity size. There is normal left ventricular wall thickness. The left ventricular systolic function is normal. The visually estimated ejection fraction is between 55-60%. Regional wall motion abnormalities can not be excluded due to suboptimal endocardial definition. Spectral Doppler is indicative of an impaired relaxation filling pattern. Prior Study Comparison Changes noted compared to prior study dated: 01/11/2021. LV systolic function may be marginally reduced, however within the margin of error Measurements 2D Linear Measurements IVSd: 0.76 0.6-0.9/0.6-1.0 cm LVIDd: 4.61 3.9-5.3/4.2-5.9 cm LVIDd Index: 2.74 2.4-3.2/2.2-3.1 cm/m2 LVIDs: 3.64 2.0-3.6 cm LVPWd: 0.67 0.7-1.1 cm LA Diam: 2.90 2.7-3.8/3.0-4.0 cm LAIDs Index: 1.73 1.5-2.3 cm/m2 LV Mass: 127.27 67-162/88-224 g LV Mass Index: 75.76 43-95/49-115 g/m2 LVOT Diam: 1.90 3.0+(-)1.3 cm 2D Systolic Function EF 4C: 56.10 >55% EF 2C: 55.20 >55% Mitral Valve MV Pk E: 0.67 MV PK A: 0.78 MV Decel Time: 206.00 E/A: 0.90 E'Lateral: 8.38 E'Medial: 7.29 E/E' Med: 9.20 E/E' Lat: 8.00 PHT: 60.00 MVA PHT: 3.67 Decel [place]: 3.25 Aortic Valve AoV Pk Herb: 1.11 AoV Mn Herb: 0.79 AoV VTI: 0.25 AoV Pk Grad: 5.00 Aov Mn Grad: 3.00 ALBINO Cont.VTI: 2.35 LVOT LVOT Pk Herb: 0.96 LVOT Mn Herb: 0.63 LVOT VTI: 0.20 LVOT Pk Grad: 4.00 LVOT Mn Grad: 2.00 LVOT Diam: 1.90 LVOT Area: 2.84 Diastolic Function MV Pk E: 0.67 MV Pk A: 0.78 E/A: 0.90 E'Medial: 7.29 E/E' Med: 9.20 E' Laterial: 8.38 E/E' Lat: 8.00 Tricuspid Valve TR Pk Herb: 1.36 TR Pk Grad: 7.00 Great Vessels Aorta Ao Arch: 2.30 Updated in Other Vendor System with Status of Final Tk Garcia MD electronically signed on 06/16/2021 12:26:35 PM with status of Final
== END ==
LOC: HO.CARD 08:26
PROVIDERS: Visit Provider Internal Medicine
DX: Z92.21 Personal history of antineoplastic chemotherapy (principal)
CPT/HCPCS: 93306; 93308

== ENCOUNTER 2021-07-30 12:41 | Outpatient (REF) | payer MEDICARE, MEDICAID, SELFPAY ==
--- NOTE | ~2021-07-30 | XR_ITS ---
EXAMINATION: XR CHEST CLINICAL INFORMATION: Shortness of breath. Recent Covid infection. COMPARISON: Previous chest x-ray June 2019 TECHNIQUE: Frontal view of the chest was obtained. FINDINGS: The cardiac and mediastinal contours are normal. There is a new right jugular port with tip projecting over the SVC. There is increased density medial to the port and adjacent to the right anterior second rib. It is on certain whether this could be related to a port accessed apparatus or represent a small infiltrate. This is new from previous exam. The lungs are otherwise clear. There is no pleural effusion or pneumothorax. Bony structures are unremarkable. XR/XR chest 1V IMPRESSION: New increased density in the right upper lung adjacent to the port partially overlying the anterior second rib. It is uncertain whether this is related the port access material or could represent a small infiltrate.
== END 2021-07-30 12:42 | disposition home or self-care (01) ==
LOC: HO.XRAY 12:41
PROVIDERS: PCP Internal Medicine; Visit Provider Internal Medicine
DX: R06.02 Shortness of breath (principal); C50.912 Malignant neoplasm of unspecified site of left female breast; Z86.16 Personal history of COVID-19
CPT/HCPCS: 71045

== ENCOUNTER → 2021-08-11 11:24 | Outpatient (BNVA) | payer MEDICARE, MEDICAID, SELFPAY | PROVIDERS: PCP Internal Medicine; Visit Provider Surgery | DX: Z48.3 Aftercare following surgery for neoplasm (principal); C50.912 Malignant neoplasm of unspecified site of left female breast; Z92.3 Personal history of irradiation | CPT/HCPCS: 99212 ==

== ENCOUNTER 2021-08-25 13:08 | Outpatient (REF) | payer MEDICARE, MEDICAID, SELFPAY ==
--- NOTE | ~2021-08-25 | MM_ITS ---
EXAMINATION: BONE DENSITOMETRY CLINICAL INDICATION: Exam need for bone strengthening therapy. COMPARISON: None (current study represents initial baseline exam). TECHNIQUE: Using a [employer] DXA System (software version: 13.1) manufactured by [employer], dual-energy x-ray absorptiometry was performed of the lumbar spine and left hip. The images are of good technical quality. Summary results are attached. FINDINGS: AP SPINE L1-L4: BMD 1.475 g/cm2, Z-score 3.2, T-score 2.5, normal. LEFT FEMUR, NECK: BMD 1.142 g/cm2, Z-score 1.7, T-score 0.8, normal. LEFT FEMUR, TOTAL: BMD 1.180 g/cm2, Z-score 2.0, T-score 1.4, normal. IDENTIFIED RISK FACTORS: Menopause, tobacco use (current smoker), anticonvulsant, glucocorticoids (chronic). HISTORY OF FRACTURE: None listed. MEDICATIONS: Vitamin D. MM/XR DEXA axial skeleton IMPRESSION: 1. DIAGNOSIS: Normal bone density based on the lowest T-score value of 0.8 in the femoral neck applying World Health Organization criteria. 2. 10-YEAR FRACTURE RISK PREDICTION, FRAX: According to the guidelines, FRAX calculation should only be performed on patients in the osteopenia bone density category. Therefore, FRAX was not performed on this patient. 3. Treatment Recommendations: NOF guidelines recommend consideration for treatment in postmenopausal women and men age 50 and older presenting with the following: -A hip or vertebral (clinical or morphometric) fracture. -T-score less than or equal to -2.5 at the femoral neck or spine after appropriate evaluation to exclude secondary causes. -Low bone mass at the hip or spine and a 10-year fracture probability by FRAX of greater than or equal to 3% for hip fracture or greater than or equal to 20% for major osteoporotic fracture based on the [place] adapted WHO algorithm. 4. Other Recommendations: All treatment decisions require clinical judgment and consideration of individual patient factors, including patient preferences, comorbidities, previous drug use, risk factors not captured in the FRAX model (e.g. frailty, falls, vitamin D deficiency, increased bone turnover, interval significant decline in bone density) and possible under or overestimation of fracture risk by FRAX. FUTURE SCAN RECOMMENDATION: People with diagnosed cases of osteoporosis or at high risk for fracture should have regular bone mineral density tests. For patients eligible for Medicare, routine testing is allowed once every 2 years. The testing frequency can be increased to one year for patients who have rapidly progressing disease, those who are receiving or discontinuing medical therapy to restore bone mass, or have additional risk factors.
== END 2021-08-25 13:09 | disposition home or self-care (01) ==
LOC: HO.MAMMO 13:08
PROVIDERS: PCP Internal Medicine; Visit Provider Internal Medicine
DX: Z13.820 Encounter for screening for osteoporosis (principal); M81.0 Age-related osteoporosis without current pathological fracture; F17.200 Nicotine dependence, unspecified, uncomplicated; E27.49 Other adrenocortical insufficiency; Z79.899 Other long term (current) drug therapy; Z78.0 Asymptomatic menopausal state
CPT/HCPCS: 77080

== ENCOUNTER → 2021-10-13 14:36 | Outpatient (REF) | payer MEDICARE, MEDICAID, SELFPAY ==
--- NOTE | 2021-10-13 14:57 | CA_ITS ---
Transthoracic Echocardiogram Patient (Last, First, Middle): Princess Valle Z Gender: Female Date of : 1965 Age: 56 Procedure Date: 10/13/2021 Procedure Type: Transthoracic Echocardiogram Location: OP Height: 157.48 cm Weight: 63.5 kg BSA: 1.64 m2 Heart Rate: bpm BP: 118 / 60 mmHg Senior Java Web Application Developer: CHUY Referring MD: Lamar Patten MD Aircraft Communicator: Tk Garcia MD Symptoms: on HER 2 therapy Study Quality: Technically Difficult ECG Rhythm: Sinus Conclusions: - Normal LV systolic function with LVEF of 55-60% with impaired relaxation filling pattern Findings Procedure Information Contrast agent, definity, is being given per protocol without apparent complications. Left Ventricle Normal left ventricular size, thickness, and systolic function. The visually estimated ejection fraction is between 55-60%. There is no evidence of regional wall motion abnormalities. Spectral Doppler is indicative of an impaired relaxation filling pattern. Pericardium/Pleural There is no evidence of pericardial effusion. Prior Study Comparison No significant change compared to prior study dated: 06/15/2021. Measurements 2D Linear Measurements IVSd: 0.57 0.6-0.9/0.6-1.0 cm LVIDd: 4.53 3.9-5.3/4.2-5.9 cm LVIDd Index: 2.76 2.4-3.2/2.2-3.1 cm/m2 LVIDs: 3.15 2.0-3.6 cm LVPWd: 0.82 0.7-1.1 cm LV Mass: 119.42 67-162/88-224 g LV Mass Index: 72.82 43-95/49-115 g/m2 2D Systolic Function EF 4C: 56.40 >55% EF 2C: 63.30 >55% EF BiP: 58.40 >55% Mitral Valve MV Pk E: 0.64 MV PK A: 0.65 MV Decel Time: 152.00 E/A: 1.00 E'Lateral: 8.16 E'Medial: 6.31 E/E' Med: 10.10 E/E' Lat: 7.80 PHT: 45.00 MVA PHT: 4.89 Decel [place]: 4.19 Diastolic Function MV Pk E: 0.64 MV Pk A: 0.65 E/A: 1.00 E'Medial: 6.31 E/E' Med: 10.10 E' Laterial: 8.16 E/E' Lat: 7.80 Right Ventricle TAPSE (mm): 18.20 TVS' Herb: 9.00 Tricuspid Valve RA Press: 4.00 Updated in Other Vendor System with Status of Final Tk Garcia MD electronically signed on 10/14/2021 5:21:02 PM with status of Final
== END ==
LOC: HO.CARD 14:36
PROVIDERS: Visit Provider Internal Medicine
DX: C50.912 Malignant neoplasm of unspecified site of left female breast (principal)
CPT/HCPCS: 93308; Q9957

== ENCOUNTER → 2022-01-18 12:43 | Outpatient (REF) | payer MEDICARE, MEDICAID, SELFPAY ==
--- NOTE | 2022-01-18 12:49 | CA_ITS ---
Transthoracic Echocardiogram Patient (Last, First, Middle): Princess Valle Z Gender: Female Date of : 1965 Age: 56 Procedure Date: 01/18/2022 Procedure Type: Transthoracic Echocardiogram Location: OP Height: 157.48 cm Weight: 61.24 kg BSA: 1.62 m2 Heart Rate: 91 bpm BP: 109 / 63 mmHg Excellence Specialist: CHUY Referring MD: Ghazal Hernández MD Symptoms: on HER 2 therapy Study Quality: Technically Difficult/Breast Augmentation/Contrast ECG Rhythm: Sinus Conclusions: - The left ventricular systolic function is mildly decreased. The visually estimated ejection fraction is between 45-50%. - No obvious valvular pathology seen on this study. Findings Procedure Information Contrast agent, definity, is being given per protocol without apparent complications. Left Ventricle Normal left ventricular cavity size. There is normal left ventricular wall thickness. The left ventricular systolic function is mildly decreased. The visually estimated ejection fraction is between 45-50%. There is mild global hypokinesis. Evidence suggests grade I (mild) diastolic dysfunction. Right Ventricle Normal right ventricular cavity size and systolic function. Atria Both atria are normal in size. Aortic Valve There is a normal trileaflet aortic valve. There is no aortic valve stenosis. There is no aortic valve regurgitation. Mitral Valve The mitral valve appears normal. There is no mitral valve regurgitation. There is no mitral valve stenosis. Pulmonic Valve The pulmonic valve is likely normal. Tricuspid Valve There is trace tricuspid valve regurgitation. The pulmonary artery systolic pressure is normal. Great Vessels The asc aorta is normal in size. Venous The inferior vena cava is normal in size and collapses greater than 50% with inspiration. Pericardium/Pleural There is no evidence of pericardial effusion. Prior Study Comparison Changes noted compared to prior study dated: 10/13/2021. Decrease in LVEF. Recommendations, Care & Conclusions No obvious valvular pathology seen on this study. Measurements 2D Linear Measurements IVSd: 0.65 0.6-0.9/0.6-1.0 cm LVIDd: 3.95 3.9-5.3/4.2-5.9 cm LVIDd Index: 2.44 2.4-3.2/2.2-3.1 cm/m2 LVIDs: 2.98 2.0-3.6 cm LVPWd: 0.76 0.7-1.1 cm LA Diam: 3.00 2.7-3.8/3.0-4.0 cm LAIDs Index: 1.85 1.5-2.3 cm/m2 LV Mass: 95.88 67-162/88-224 g LV Mass Index: 59.18 43-95/49-115 g/m2 LVOT Diam: 2.00 3.0+(-)1.3 cm 2D Systolic Function EF 4C: 47.00 >55% Mitral Valve MV Pk E: 0.40 MV PK A: 0.68 MV Decel Time: 109.00 E/A: 0.60 E'Lateral: 5.77 E'Medial: 4.90 E/E' Med: 8.20 E/E' Lat: 7.00 PHT: 32.00 MVA PHT: 6.88 Decel [place]: 3.71 Aortic Valve AoV Pk Herb: 0.87 AoV Mn Herb: 0.62 AoV VTI: 0.14 AoV Pk Grad: 3.00 Aov Mn Grad: 2.00 ALBINO Cont.VTI: 3.16 LVOT LVOT Pk Herb: 0.79 LVOT Mn Herb: 0.57 LVOT VTI: 0.14 LVOT Pk Grad: 3.00 LVOT Mn Grad: 1.00 LVOT Diam: 2.00 LVOT Area: 3.14 Diastolic Function MV Pk E: 0.40 MV Pk A: 0.68 E/A: 0.60 E'Medial: 4.90 E/E' Med: 8.20 E' Laterial: 5.77 E/E' Lat: 7.00 Right Ventricle TVS' Herb: 8.27 Tricuspid Valve RA Press: 8.00 Great Vessels Aorta Sinus of Valsalva: 3.10 2.0-3.5 cm Ao Asc: 2.50 2.1-3.4 cm Pulmonary Valve PV Pk Herb: 0.67 Peak PV Grad: 2.00 Updated in Other Vendor System with Status of Final John Thomas MD electronically signed on 01/19/2022 10:12:02 AM with status of Final
== END ==
LOC: HO.CARD 12:43
PROVIDERS: Visit Provider Internal Medicine
DX: Z79.899 Other long term (current) drug therapy (principal)
CPT/HCPCS: 93306; Q9957

== ENCOUNTER → 2022-02-10 12:45 | Outpatient (BNVA) | payer MEDICARE, MEDICAID, SELFPAY | PROVIDERS: PCP Internal Medicine; Visit Provider Surgery | DX: C50.912 Malignant neoplasm of unspecified site of left female breast (principal); L72.0 Epidermal cyst; Z98.890 Other specified postprocedural states | CPT/HCPCS: 99212 ==

== ENCOUNTER → 2022-02-16 10:24 | Outpatient (REF) | payer MEDICARE, MEDICAID, SELFPAY ==
--- NOTE | 2022-02-16 10:27 | CA_ITS ---
Transthoracic Echocardiogram Amended Patient (Last, First, Middle): Princess Valle Z Gender: Female Date of : 1965 Age: 56 Procedure Date: 02/16/2022 Procedure Type: Transthoracic Echocardiogram Location: OP Height: 157.48 cm Weight: 61.24 kg BSA: 1.62 m2 Heart Rate: 69 bpm BP: 104 / 62 mmHg Training And Development Project Leader: SB Referring MD: Ghazal Hernández MD Plastic Technician: Tk Garcia MD Symptoms: decline in EF on last echo, on HER2 therapy Study Quality: Technically Difficult/Breast Augmentation/Contrast ECG Rhythm: Sinus Conclusions: - Mildly reduced LV systolic function with LVEF of 45-50%. Findings Procedure Information Contrast agent, definity, is being given per protocol without apparent complications. Left Ventricle Normal left ventricular cavity size. There is normal left ventricular wall thickness. The left ventricular systolic function is mildly decreased. The visually estimated ejection fraction is between 45-50%. Prior Study Comparison No significant change compared to prior study dated: 01/18/2022. Measurements 2D Linear Measurements IVSd: 0.64 0.6-0.9/0.6-1.0 cm LVIDd: 4.37 3.9-5.3/4.2-5.9 cm LVIDd Index: 2.70 2.4-3.2/2.2-3.1 cm/m2 LVIDs: 3.28 2.0-3.6 cm LVPWd: 0.80 0.7-1.1 cm LV Mass: 116.65 67-162/88-224 g LV Mass Index: 72.01 43-95/49-115 g/m2 2D Volumes LA Vol: 10.60 2D Systolic Function EF 4C: 51.50 >55% EF 2C: 47.60 >55% EF BiP: 49.50 >55% Mitral Valve MV Pk E: 0.72 MV PK A: 0.59 MV Decel Time: 201.00 E/A: 1.20 E'Lateral: 7.94 E'Medial: 9.57 E/E' Med: 7.50 E/E' Lat: 9.10 PHT: 59.00 MVA PHT: 3.73 Decel [place]: 3.60 Diastolic Function MV Pk E: 0.72 MV Pk A: 0.59 E/A: 1.20 E'Medial: 9.57 E/E' Med: 7.50 E' Laterial: 7.94 E/E' Lat: 9.10 Right Ventricle TAPSE (mm): 16.30 TVS' Herb: 8.80 Tricuspid Valve TR Pk Herb: 2.05 TR Pk Grad: 17.00 RA Press: 3.00 RVSP: 20.00 Updated in Other Vendor System with Status of Final Tk Garcia MD electronically signed on 02/16/2022 1:30:32 PM with status of Final
== END ==
LOC: HO.CARD 10:24
PROVIDERS: Visit Provider Internal Medicine
DX: R94.30 Abnormal result of cardiovascular function study, unspecified (principal)
CPT/HCPCS: 93308; Q9957

== ENCOUNTER 2022-03-03 | Outpatient (REF) | payer MEDICARE, MEDICAID, SELFPAY | END 2022-03-03 00:01 | disposition home or self-care (01) | LOC: HO.LNP | PROVIDERS: PCP Internal Medicine; Visit Provider Surgery | DX: L72.0 Epidermal cyst (principal) | CPT/HCPCS: 11403; 11404; 88304 ==

== ENCOUNTER 2022-03-07 14:13 | Outpatient (REF) | payer MEDICARE, MEDICAID, SELFPAY ==
--- NOTE | ~2022-03-07 | MM_ITS ---
EXAMINATION: MM DIAGNOSTIC DIGITAL BREAST TOMOSYNTHESIS, BILATERAL CLINICAL INFORMATION: Invasive ductal cancer left breast status post lumpectomy 04/09/2021. Due for yearly. COMPARISON: Mammography: 01/25/2021, 09/10/2020, 09/04/2020, 08/11/2020, 08/06/2019, TECHNIQUE: Digital mammography is performed in craniocaudal and mediolateral oblique views. Digital breast tomosynthesis is performed in implant-displaced craniocaudal and implant-displaced mediolateral oblique views. Synthesized 2D images are generated from the tomosynthesis. Computer-aided detection (CAD) is performed for this exam. Additional magnification implant displaced left CC and magnification implant displaced left ML views are provided. FINDINGS: There are scattered areas of fibroglandular density (ACR BI-RADS breast composition Category b). There are bilateral implants. Implant contours are smooth. Portion of the port overlies posterior upper right axilla. There are post therapy changes on the left with mild reduced left breast size, minor scarring, and smooth skin thickening. Biopsy clip marker again noted central upper right breast and dense calcification or clip marker anterior upper outer left breast. Neither breast shows interval mass or architectural abnormality or abnormal calcifications. Results are provided to the patient at time of visit by the technologist. MM/MM tomosynthesis diag imp BI IMPRESSION: -No mammographic evidence of malignancy. -Post therapy changes left breast. ASSESSMENT: BI-RADS 2: Benign RECOMMENDATION: Annual bilateral mammography. This patient's information was entered into a reminder system with a target due date for their next mammogram.
== END 2022-03-07 14:14 | disposition home or self-care (01) ==
LOC: HO.MAMMO 14:13
PROVIDERS: PCP Internal Medicine; Visit Provider Internal Medicine
DX: Z85.3 Personal history of malignant neoplasm of breast (principal)
CPT/HCPCS: 77062; 77066

== ENCOUNTER → 2022-03-14 13:02 | Outpatient (BNVA) | payer OTHER, SELFPAY | PROVIDERS: PCP Internal Medicine; Visit Provider Surgery | DX: L72.0 Epidermal cyst (principal) | CPT/HCPCS: 99212 ==

== ENCOUNTER 2022-06-23 06:47 | Day surgery (SDC) | payer MEDICARE, MEDICAID, SELFPAY ==
[2022-06-23] VITALS (7 sets, daily range): BP systolic 91–105; BP diastolic 48–64; PULSE 58–64; RESP 16; TEMP 36.2; O2SAT 95–97; BMI 25.6
--- NOTE | ~2022-06-23 | IR_ITS ---
PROCEDURE: REMOVAL OF PORTACATHETER CLINICAL INFORMATION: Invasive ductal cancer left breast. The Port-A-Cath is not needed at this time following full chemotherapy treatment. COMPARISON: None TECHNIQUE: Following explaining Port-A-Cath removal procedure, benefits and risk, a written consent was obtained. Patient was placed on fluoroscopy table in angio suite and the area around the right anterior chest wall where Port-A-Cath chamber is noted was cleaned and draped in the usual sterile manner. 1% lidocaine was injected at puncture site. A small skin incision was performed at the junction of the port and the catheter. Blind dissection was performed and the junction was identified. Subsequently both nonabsorbable sutures were identified and severed. With blunt dissection the port chamber was slowly teased out its pocket and eventually the entire catheter and the port were removed. Complete hemostasis achieved at puncture site. 3-0 absorbable sutures were then placed subcutaneously and the skin incision was pulled together. 4-0 absorbable sutures were placed on the skin and the suture site was opposed together. Subsequently sterile dressing applied. Patient tolerate procedure extremely well. Conscious sedation with Versed and fentanyl was administered and patient monitored for 22 minutes by IR physician and nurse. IR/IR cvc remove tunnel w prt/behavioral health tech FINDINGS/IMPRESSION: Successful removal of right portacatheter without immediate complications. Approximately 5 mL of bleeding was noted. Fluoroscopy time: 0 minutes. DAP: 19 cGy-cm2 Images: 1.
[2022-06-23 07:30] LABS: MANUAL DIFF FLAG NO
[2022-06-23 07:38] LABS: Basophils Absolute Auto 0.1 X10*3/uL (0.0-0.2); Basophils Percent Auto 0.6 % (0-2); Eosinophils Absolute Auto 0.1 X10*3/uL (0.0-0.4); Eosinophils Percent Auto 1.6 % (0-4); Hematocrit 43.2 % (37.0-47.0); Hemoglobin 14.4 g/dl (12.0-16.0); Imm Gran Abs Auto 0.04 X10*3/uL (0.00-0.03); Imm Gran Pct Auto 0.5 % (0.0-0.4); Lymphocytes Absolute Auto 3.2 X10*3/uL (1.2-4.9); Mean Corpuscular HGB Conc 33.3 g/dl (31.0-35.0); Mean Corpuscular Hemoglobin 28.7 pg (27.0-33.0); Mean Corpuscular Volume 86.2 fL (80.0-98.0); Mean Platelet Volume 8.6 fL (9.4-12.3); Monocytes Absolute Auto 0.6 X10*3/uL (0.1-1.2); Monocytes Percent Auto 7.5 % (2-11); Neutrophils Absolute Auto 4.2 x10*3/uL (2.0-8.3); Neutrophils Percent Auto 50.8 % (45-73); Platelet Count 266 X10*3/uL (160-400); Red Blood Count 5.01 X10*6/uL (4.20-5.50); White Blood Count 8.3 X10*3/uL (4.8-10.8)
[2022-06-23 07:40] LABS: INTERNATIONAL NORM RATIO 0.9 (0.9-1.1); Prothrombin Time 10.8 SEC (10.0-13.1)
[2022-06-23 07:43] LABS: Partial Thromboplastin Time 32.6 SEC (26.0-36.4)
[2022-06-23 07:47] LABS: Anion Gap 11 (12-20); Blood Urea Nitrogen 17 mg/dL (9-16); Carbon Dioxide 23 mmol/L (22-29); Chloride 109 mmol/L (96-108); Creatinine Clr Calc Pharmacy 70.4; Estimated Glomerular Filt Rate > 60; Potassium 3.9 mmol/L (3.3-5.1); Sodium 139 mmol/L (135-145)
== END 2022-06-23 11:53 | disposition home or self-care (01) ==
PROVIDERS: PCP Internal Medicine; Visit Provider Radiology Diagnostic Radiology
PROC: (CPT 36590; principal; 2022-06-23 08:30)
DX: Z45.2 Encounter for adjustment and management of vascular access device (principal); C50.912 Malignant neoplasm of unspecified site of left female breast; Z17.0 Estrogen receptor positive status [ER+]
CPT/HCPCS: 36415; 36590; 80051; 82565; 84520; 85025; 85610; 85730; 99152; J2250; J3010

== ENCOUNTER → 2022-08-30 14:25 | Outpatient (BNVA) | payer MEDICARE, MEDICAID, SELFPAY | PROVIDERS: PCP Internal Medicine; Referring Provider Internal Medicine; Visit Provider Internal Medicine Cardiovascular Disease | DX: I42.9 Cardiomyopathy, unspecified (principal) | CPT/HCPCS: 93005; 99202 ==

== ENCOUNTER 2022-09-12 14:31 | Emergency (ER) | payer MEDICARE, MEDICAID, SELFPAY ==
--- NOTE | 2022-09-12 14:33 | ECG_ITS ---
Test Reason : chest pain Blood Pressure : / mmHG Vent. Rate : 083 BPM Atrial Rate : 083 BPM P-R Int : 118 ms QRS Dur : 074 ms QT Int : 394 ms P-R-T Axes : 063 -25 041 degrees QTc Int : 462 ms Normal sinus rhythm Normal ECG When compared with ECG of 08-OCT-2014 19:21, No significant change was found Referred By: Afshan Johnson Electronically Signed By:Mike Michel
[2022-09-12 14:39] VITALS: BP 129/82; PULSE 87; RESP 19; TEMP 36.6; O2SAT 97; BMI 25.6
--- NOTE | 2022-09-12 14:39 | ED.ARRPALP ---
HPI - Arrhythmia/Palpitations General Chief Complaint: Arrhythmia/Palpitations <SILVINO Bajwa - Last Filed: 09/12/22 14:42> Stated Complaint: rapid heart beat not feeling well <SILVINO Bajwa - Last Filed: 09/12/22 14:42> Time Seen by Provider: 09/12/22 17:56 <SILVINO Bajwa - Last Filed: 09/12/22 14:42> Source: patient, family (Daughter) and project planner <Shayna Gagnon MD - Last Filed: 09/12/22 19:06> Mode of arrival: ambulatory <Shayna Gagnon MD - Last Filed: 09/12/22 19:06> History of Present Illness HPI narrative: 57-year-old female with prior history of seizures, breast CA currently on anastrozole as well as history of anxiety who states that she was at a protestant event last night for her father in law and then on returning home felt that she was having chest palpitations with some lightheadedness and nausea. Patient states that throughout the day she has continued to have palpitations denies any further dizziness. She denies any associated fever, chills, vomiting, diarrhea/constipation, dysuria. <Shayna Gagnon MD - Last Filed: 09/12/22 19:06> Related Data Home Medications: Home Medications Medication Instructions Recorded Confirmed levetiracetam 500 mg tablet 500 mg PO Q12H 07/02/20 08/30/22 (Keppra) Previous Rx's Medication Instructions Recorded hydroxyzine pamoate 25 mg capsule 25 mg PO BID PRN anxiety #30 caps 03/30/21 ibuprofen 600 mg tablet 600 mg PO Q6H PRN pain #30 tabs 07/09/21 trazodone 50 mg tablet 50 mg PO BEDTIME PRN Insomnia #30 01/14/22 tabs citalopram 40 mg tablet 40 mg PO BEDTIME 90 days #90 tabs 03/07/22 anastrozole 1 mg tablet (Arimidex) 1 mg PO DAILY #60 tabs 08/29/22 hydrocortisone 2.5 % topical cream 1 appl OK BEDTIME PRN Itching #30 08/29/22 with perineal applicator grams (Anusol-HC) <SILVINO Bajwa - Last Filed: 09/12/22 14:42> Allergies/Adverse Reactions: Allergies Allergy/AdvReac Type Severity Reaction Status Date / Time Penicillins AdvReac Intermediate Nausea and Verified 08/30/22 14:38 Vomiting <SILVINO Bajwa - Last Filed: 09/12/22 14:42> Review of Systems Review of Systems: Pertinent positives and negatives as stated in HPI <Shayna Gagnon MD - Last Filed: 09/12/22 19:06> [facility] Past Medical History Source: nursing notes reviewed <Shayna Gagnon MD - Last Filed: 09/12/22 19:06> Medical History: Medical History Chronic fatigue Daytime sleepiness DCIS (ductal carcinoma in situ) Depression with anxiety Epidermal cyst JOSI (generalized anxiety disorder) GERD (gastroesophageal reflux disease) Invasive ductal carcinoma of left breast Left breast mass Leg weakness Mild recurrent major depression Pelvic floor weakness Seizures Shortness of breath Snoring <SILVINO Bajwa - Last Filed: 09/12/22 14:42> Surgical History: Surgical History H/O abdominoplasty History of bilateral breast implants History of breast biopsy History of lumpectomy of left breast History of removal of cyst (~03/03/22) History of tubal ligation <SILVINO Bajwa - Last Filed: 09/12/22 14:42> Family History Family History: Family History Father CVD (cardiovascular disease) Mother Hypertension Daughter No problems noted. Family/Other FH: mental illness <SILVINO Bajwa - Last Filed: 09/12/22 14:42> Social History Social History: Social History Household Members: Spouse, Significant Other and Children Housing: House Alcohol intake: current Alcohol intake frequency: holidays/special occasions only Alcohol type: wine Patient Tobacco Use Status: Current everyday Tobacco user Tobacco use type: Cigarette Cigarette Packs Per Day: 0.5 Cigarettes Per Day: 10 Years Smoked: 35 +/- e-Cigarette/Vaping Use: Never Used Second Hand Smoke Exposure: No service: No Current occupational status: unemployed Cognitive needs: No Hearing needs: No Vision needs: Yes <SILVINO Bajwa - Last Filed: 09/12/22 14:42> Physical Exam Vital Signs: Vital Signs: Last Vital Signs Temp 98 F 09/12/22 14:39 Pulse 87 09/12/22 14:39 Resp 19 09/12/22 14:39 BP 129/82 09/12/22 14:39 Pulse Ox 97 09/12/22 14:39 O2 Del Method Room Air 09/12/22 14:39 BMI result Body Mass Index 25.6 <SILVINO Bajwa - Last Filed: 09/12/22 14:42> Vital Signs: Last Vital Signs Temp 98 F 09/12/22 14:39 Pulse 87 09/12/22 14:39 Resp 09/12/22 14:39 BP 129/82 09/12/22 14:39 Pulse Ox 97 09/12/22 14:39 O2 Del Method Room Air 09/12/22 14:39 BMI result Body Mass Index 25.6 VITAL SIGNS: Reviewed. GENERAL: Well developed, well nourished, in no acute distress. HEAD: Normocephalic/atraumatic EYES: PERRLA, EOMI EARS: Ext canals without abnormality NOSE: Nares patent bilateral OROPHARYNX: no oral lesions noted, posterior pharynx clear NECK: Supple, no adenopathy LUNGS: Normal breath sounds. No adventitious sounds or accessory muscle use. SpO2<97> CARDIOVASCULAR: Regular rate and rhythm without noted murmurs ABDOMEN: Soft, non-tender, non-distended with bowel sounds. MUSCULOSKELETAL: No tenderness, deformities, or effusions noted on gross inspection. EXTREMITIES: No cyanosis, clubbing or edema. SKIN: Inspection of the skin reveals no rashes NEUROLOGIC: Alert and oriented x 4. Strength and sensation to light touch were grossly intact x 4, no facial asymmetry, no pronator drift, cranial nerves 2-12 are grossly intact. <Shayna Gagnon MD - Last Filed: 09/12/22 19:06> Course Course Course Narrative: RME - 57 yo female with history of depression, anxiety, cardiomyopathy w/ EF 45%, smoker, GERD, breast cancer s/p XRT & chemo (completed 2 months ago) who presents to the ER for evaluation of palpations, dizziness and hot flashes that started last night. VSS in triage. c/o dizziness and nausea. Plan: EKG, labs <SILVINO Bajwa - Last Filed: 09/12/22 14:42> Medical Decision Making Medical Decision Making MDM Narrative: 57-year-old female with history of chronic fatigue, daytime sleepiness, anxiety and after review of all investigations my interpretation is that patient has likely had caffeine related palpitations with possibly a component of anxiety. Patient does have good follow-up and is skin to be undergoing a stress test tomorrow and then echocardiogram on Monday. There are no results are clinical findings to suggest acute infection, anemia, electrolyte abnormalities and orthostatics appear to be positive from sitting to standing and as patient is not experiencing any vomiting or diarrhea she was strongly encouraged to increase oral hydration. Patient is otherwise discharged home in stable condition. <Shayna Gagnon MD - Last Filed: 09/12/22 19:06> Differential Diagnosis Please see the discussion above <Shayna Gagnon MD - Last Filed: 09/12/22 19:06> Lab Data Please see the discussion above <Shayna Gagnon MD - Last Filed: 09/12/22 19:06> Result Diagrams: 09/12/22 15:52 09/12/22 06:10 <SILVINO Bajwa - Last Filed: 09/12/22 14:42> Labs: Lab Results 09/12/22 09/12/22 09/12/22 Range/Units 06:10 15:52 15:52 WBC 8.7 (4.8-10.8) X10*3/uL RBC 4.95 (4.20-5.50) X10*6/uL Hgb 14.7 (12.0-16.0) g/dl Hct 43.7 (37.0-47.0) % MCV 88.3 (80.0-98.0) fL MCH 29.7 (27.0-33.0) pg MCHC 33.6 (31.0-35.0) g/dl RDW 13.3 (11.0-16.0) % Plt Count 311 (160-400) X10*3/uL MPV 8.5 L (9.4-12.3) fL Immature Gran % (Auto) 0.5 H (0.0-0.4) % Neut % (Auto) 59.4 (45-73) % Lymph % (Auto) 31.5 (20-40) % [place] % (Auto) 6.2 (2-11) % Eos % (Auto) 1.6 (0-4) % Baso % (Auto) 0.8 (0-2) % Lymph # (Auto) 2.8 (1.2-4.9) X10*3/uL [place] # (Auto) 0.5 (0.1-1.2) X10*3/uL Eos # (Auto) 0.1 (0.0-0.4) X10*3/uL Baso # (Auto) 0.1 (0.0-0.2) X10*3/uL Abs Immat Gran (auto) 0.04 H (0.00-0.03) X10*3/uL Absolute Neuts (auto) 5.2 (2.0-8.3) x10*3/uL Absolute Nucleated RBC 0.000 (0.0-0.012) X10*3/uL Nucleated RBC % (auto) 0.0 (0.0-0.2) /100WBC Sodium 139 (135-145) mmol/L Potassium 4.2 (3.3-5.1) mmol/L Chloride 107 (96-108) mmol/L Carbon Dioxide 26 (22-29) mmol/L Anion Gap 10 L (12-20) BUN 16 (9-16) mg/dL Creatinine 0.85 (0.5-1.4) mg/dL Estim Creat Clear Calc 65.5 Estimated GFR > 60 Random Glucose 84 (60-115) mg/dL Calcium 9.4 (8.4-10.2) mg/dL Magnesium 2.1 (1.6-2.6) mg/dL Total Bilirubin 0.3 (0.0-1.0) mg/dL Direct Bilirubin < 0.2 (0.0-0.5) mg/dL AST 25 (5-31) U/L ALT 19 (0-31) U/L Alkaline Phosphatase 97 (39-117) U/L B-Natriuretic Peptide 39 (<100) pg/mL Total Protein 6.3 L (6.5-8.0) g/dL Albumin 4.0 (3.5-5.0) g/dL TSH 0.85 (0.32-4.0) uIU/mL COVID-19 (JUSTIN) (Negative) COVID-19 Clin Com 09/12/22 Range/Units 15:52 WBC (4.8-10.8) X10*3/uL RBC (4.20-5.50) X10*6/uL Hgb (12.0-16.0) g/dl Hct (37.0-47.0) % MCV (80.0-98.0) fL MCH (27.0-33.0) pg MCHC (31.0-35.0) g/dl RDW (11.0-16.0) % Plt Count (160-400) X10*3/uL MPV (9.4-12.3) fL Immature Gran % (Auto) (0.0-0.4) % Neut % (Auto) (45-73) % Lymph % (Auto) (20-40) % [place] % (Auto) (2-11) % Eos % (Auto) (0-4) % Baso % (Auto) (0-2) % Lymph # (Auto) (1.2-4.9) X10*3/uL [place] # (Auto) (0.1-1.2) X10*3/uL Eos # (Auto) (0.0-0.4) X10*3/uL Baso # (Auto) (0.0-0.2) X10*3/uL Abs Immat Gran (auto) (0.00-0.03) X10*3/uL Absolute Neuts (auto) (2.0-8.3) x10*3/uL Absolute Nucleated RBC (0.0-0.012) X10*3/uL Nucleated RBC % (auto) (0.0-0.2) /100WBC Sodium (135-145) mmol/L Potassium (3.3-5.1) mmol/L Chloride (96-108) mmol/L Carbon Dioxide (22-29) mmol/L Anion Gap (12-20) BUN (9-16) mg/dL Creatinine (0.5-1.4) mg/dL Estim Creat Clear Calc Estimated GFR Random Glucose (60-115) mg/dL Calcium (8.4-10.2) mg/dL Magnesium (1.6-2.6) mg/dL Total Bilirubin (0.0-1.0) mg/dL Direct Bilirubin (0.0-0.5) mg/dL AST (5-31) U/L ALT (0-31) U/L Alkaline Phosphatase (39-117) U/L B-Natriuretic Peptide (<100) pg/mL Total Protein (6.5-8.0) g/dL Albumin (3.5-5.0) g/dL TSH (0.32-4.0) uIU/mL COVID-19 (JUSTIN) Negative (Negative) COVID-19 Clin Com See Note <SILVINO Bajwa - Last Filed: 09/12/22 14:42> Lab Results 09/12/22 09/12/22 09/12/22 Range/Units 06:10 15:52 15:52 WBC 8.7 (4.8-10.8) X10*3/uL RBC 4.95 (4.20-5.50) X10*6/uL Hgb 14.7 (12.0-16.0) g/dl Hct 43.7 (37.0-47.0) % MCV 88.3 (80.0-98.0) fL MCH 29.7 (27.0-33.0) pg MCHC 33.6 (31.0-35.0) g/dl RDW 13.3 (11.0-16.0) % Plt Count 311 (160-400) X10*3/uL MPV 8.5 L (9.4-12.3) fL Immature Gran % (Auto) 0.5 H (0.0-0.4) % Neut % (Auto) 59.4 (45-73) % Lymph % (Auto) 31.5 (20-40) % [place] % (Auto) 6.2 (2-11) % Eos % (Auto) 1.6 (0-4) % Baso % (Auto) 0.8 (0-2) % Lymph # (Auto) 2.8 (1.2-4.9) X10*3/uL [place] # (Auto) 0.5 (0.1-1.2) X10*3/uL Eos # (Auto) 0.1 (0.0-0.4) X10*3/uL Baso # (Auto) 0.1 (0.0-0.2) X10*3/uL Abs Immat Gran (auto) 0.04 H (0.00-0.03) X10*3/uL Absolute Neuts (auto) 5.2 (2.0-8.3) x10*3/uL Absolute Nucleated RBC 0.000 (0.0-0.012) X10*3/uL Nucleated RBC % (auto) 0.0 (0.0-0.2) /100WBC Sodium 139 (135-145) mmol/L Potassium 4.2 (3.3-5.1) mmol/L Chloride 107 (96-108) mmol/L Carbon Dioxide 26 (22-29) mmol/L Anion Gap 10 L (12-20) BUN 16 (9-16) mg/dL Creatinine 0.85 (0.5-1.4) mg/dL Estim Creat Clear Calc 65.5 Estimated GFR > 60 Random Glucose 84 (60-115) mg/dL Calcium 9.4 (8.4-10.2) mg/dL Magnesium 2.1 (1.6-2.6) mg/dL Total Bilirubin 0.3 (0.0-1.0) mg/dL Direct Bilirubin < 0.2 (0.0-0.5) mg/dL AST 25 (5-31) U/L ALT 19 (0-31) U/L Alkaline Phosphatase 97 (39-117) U/L B-Natriuretic Peptide 39 (<100) pg/mL Total Protein 6.3 L (6.5-8.0) g/dL Albumin 4.0 (3.5-5.0) g/dL TSH 0.85 (0.32-4.0) uIU/mL COVID-19 (JUSTIN) (Negative) COVID-19 Clin Com 09/12/22 Range/Units 15:52 WBC (4.8-10.8) X10*3/uL RBC (4.20-5.50) X10*6/uL Hgb (12.0-16.0) g/dl Hct (37.0-47.0) % MCV (80.0-98.0) fL MCH (27.0-33.0) pg MCHC (31.0-35.0) g/dl RDW (11.0-16.0) % Plt Count (160-400) X10*3/uL MPV (9.4-12.3) fL Immature Gran % (Auto) (0.0-0.4) % Neut % (Auto) (45-73) % Lymph % (Auto) (20-40) % [place] % (Auto) (2-11) % Eos % (Auto) (0-4) % Baso % (Auto) (0-2) % Lymph # (Auto) (1.2-4.9) X10*3/uL [place] # (Auto) (0.1-1.2) X10*3/uL Eos # (Auto) (0.0-0.4) X10*3/uL Baso # (Auto) (0.0-0.2) X10*3/uL Abs Immat Gran (auto) (0.00-0.03) X10*3/uL Absolute Neuts (auto) (2.0-8.3) x10*3/uL Absolute Nucleated RBC (0.0-0.012) X10*3/uL Nucleated RBC % (auto) (0.0-0.2) /100WBC Sodium (135-145) mmol/L Potassium (3.3-5.1) mmol/L Chloride (96-108) mmol/L Carbon Dioxide (22-29) mmol/L Anion Gap (12-20) BUN (9-16) mg/dL Creatinine (0.5-1.4) mg/dL Estim Creat Clear Calc Estimated GFR Random Glucose (60-115) mg/dL Calcium (8.4-10.2) mg/dL Magnesium (1.6-2.6) mg/dL Total Bilirubin (0.0-1.0) mg/dL Direct Bilirubin (0.0-0.5) mg/dL AST (5-31) U/L ALT (0-31) U/L Alkaline Phosphatase (39-117) U/L B-Natriuretic Peptide (<100) pg/mL Total Protein (6.5-8.0) g/dL Albumin (3.5-5.0) g/dL TSH (0.32-4.0) uIU/mL COVID-19 (JUSTIN) Negative (Negative) COVID-19 Clin Com See Note <Shayna Gagnon MD - Last Filed: 09/12/22 19:06> Independent Interpretation I performed an independent interpretation of an: EKG <Shayna Gagnon MD - Last Filed: 09/12/22 19:06> Interpretation: Normal sinus rhythm, HR-83, no STEMI, OK/QRS/QTC is within normal limits. <Shayna Gagnon MD - Last Filed: 09/12/22 19:06> External Record Review External record reviewed: Outpatient record and Prior outpatient labs <Shayna Gagnon MD - Last Filed: 09/12/22 19:06> Discharge Plan Discharge Clinical Impression: Palpitations <SILVINO Bajwa - Last Filed: 09/12/22 14:42> Patient Disposition: Home, Self-Care <SILVINO Bajwa - Last Filed: 09/12/22 14:42> Instructions: Heart Palpitations (ED) <SILVINO Bajwa - Last Filed: 09/12/22 14:42> Additional Instructions: 1. Reanudar todos los medicamentos caseros. 2. Aumente la cantidad de agua que ingiere y tenga cuidado con morrison consumo de cafe?na. 3. Por favor acuda a daphney citas para la prueba de esfuerzo y el ecocardiograma. 4. Mckenzie un seguimiento con morrison PCP/cardi?logo Regrese a la nikos de emergencias si los s?ntomas empeoran. 1. Resume all home medications. 2. Increase the amount of water intake and be cautious with your caffeine intake. 3. Please keep your appointments for the stress test and echocardiogram. 4. Please follow-up with your PCP/cardiology Return to the ER for any worsening symptoms. <SILVINO Bajwa - Last Filed: 09/12/22 14:42> Prescriptions: No Action hydroxyzine pamoate 25 mg capsule 25 mg PO BID PRN (Reason: anxiety) Qty: 30 0RF citalopram 40 mg tablet 40 mg PO BEDTIME 90 Days Qty: 90 1RF ibuprofen 600 mg tablet 600 mg PO Q6H PRN (Reason: pain) Qty: 30 0RF trazodone 50 mg Tablet 50 mg PO BEDTIME PRN (Reason: Insomnia) Qty: 30 3RF hydrocortisone [Anusol-HC] 2.5 % Cream With Perineal Applicator 1 appl OK BEDTIME PRN (Reason: Itching) Qty: 30 0RF anastrozole [Arimidex] 1 mg Tablet 1 mg PO DAILY Qty: 60 3RF levetiracetam [Keppra] 500 mg tablet 500 mg PO Q12H <SILVINO Bajwa - Last Filed: 09/12/22 14:42> Referrals: Beth Youngblood MD [Primary Care Provider] - <SILVINO Bajwa - Last Filed: 09/12/22 14:42> Print Language: Thai <SILVINO Bajwa - Last Filed: 09/12/22 14:42>
[2022-09-12 16:03] LABS: MANUAL DIFF FLAG NO
[2022-09-12 16:07] LABS: Basophils Absolute Auto 0.1 X10*3/uL (0.0-0.2); Basophils Percent Auto 0.8 % (0-2); Eosinophils Absolute Auto 0.1 X10*3/uL (0.0-0.4); Eosinophils Percent Auto 1.6 % (0-4); Hematocrit 43.7 % (37.0-47.0); Hemoglobin 14.7 g/dl (12.0-16.0); Imm Gran Abs Auto 0.04 X10*3/uL (0.00-0.03); Imm Gran Pct Auto 0.5 % (0.0-0.4); Lymphocytes Absolute Auto 2.8 X10*3/uL (1.2-4.9); Lymphocytes Percent Auto 31.5 % (20-40); Mean Corpuscular HGB Conc 33.6 g/dl (31.0-35.0); Mean Corpuscular Hemoglobin 29.7 pg (27.0-33.0); Mean Corpuscular Volume 88.3 fL (80.0-98.0); Mean Platelet Volume 8.5 fL (9.4-12.3); Monocytes Absolute Auto 0.5 X10*3/uL (0.1-1.2); Monocytes Percent Auto 6.2 % (2-11); Neutrophils Absolute Auto 5.2 x10*3/uL (2.0-8.3); Neutrophils Percent Auto 59.4 % (45-73); Platelet Count 311 X10*3/uL (160-400); Red Blood Count 4.95 X10*6/uL (4.20-5.50); Red Cell Distribution Width 13.3 % (11.0-16.0); White Blood Count 8.7 X10*3/uL (4.8-10.8)
[2022-09-12 16:27] LABS: Alanine Aminotransferase 19 U/L (0-31); Alkaline Phosphatase 97 U/L (39-117); Anion Gap 10 (12-20); Aspartate Amino Transferase 25 U/L (5-31); Bilirubin Direct < 0.2 mg/dL (0.0-0.5); Bilirubin Total 0.3 mg/dL (0.0-1.0); Blood Urea Nitrogen 16 mg/dL (9-16); Calcium 9.4 mg/dL (8.4-10.2); Carbon Dioxide 26 mmol/L (22-29); Chloride 107 mmol/L (96-108); Creatinine Clr Calc Pharmacy 65.5; Estimated Glomerular Filt Rate > 60; Glucose Random 84 mg/dL (60-115); Magnesium 2.1 mg/dL (1.6-2.6); Potassium 4.2 mmol/L (3.3-5.1); Sodium 139 mmol/L (135-145); Total Protein 6.3 g/dL (6.5-8.0)
[2022-09-12 16:34] LABS: B Type Natriuretic Peptide 39 pg/mL (<100)
[2022-09-12 16:39] LABS: COVID-19 Test Negative (Negative); IDNOW Serial# 9DB6401D
[2022-09-12 16:40] LABS: TSH reflex Free T4 0.85 uIU/mL (0.32-4.0)
[2022-09-12 18:55] VITALS: BP 114/63; PULSE 58
[2022-09-12 18:57] VITALS: BP 109/74; BP 126/71; PULSE 65; PULSE 70
[2022-09-12 19:03] VITALS: PULSE 70
[2022-09-12 19:05] VITALS: TEMP 36.5
== END 2022-09-12 19:13 | disposition home or self-care (01) ==
PROVIDERS: Physician Assistant; Emergency Provider Student in an Organized Health Care Education/Training Program; PCP Internal Medicine
DX: I49.9 Cardiac arrhythmia, unspecified (principal); R00.2 Palpitations; R06.02 Shortness of breath; Z20.822 Contact with and (suspected) exposure to COVID-19; Z20.828 Contact with and (suspected) exposure to other viral communicable diseases; Z79.899 Other long term (current) drug therapy
CPT/HCPCS: 80048; 80076; 83735; 83880; 84443; 85025; 87635; 93005; 99283; 99285

== ENCOUNTER → 2022-09-13 10:11 | Outpatient (REF) | payer MEDICARE, MEDICAID, SELFPAY ==
--- NOTE | 2022-09-13 10:14 | CA_ITS ---
Acquisition Time: 2022-09-13 10:31:59 Total Exercise Time: 00:06:35 Test Indications: ABN ECHO Medications: ARIMEDEX CITALOPRAM KEPPRA TRAZADONE Protocol: JORGE Max HR: 160 BPM 96% of Pred: 165 BPM Max BP: 136/072 mmHG Max Work Load: 7.8 METS Exercise stress test exercise 6 min 35 sec of Jorge protocol achieivng 96% MPHR, without anginal symptoms, without arrythmias, with normotensive response to exercise, without EKG changes. Test reviewed with Dr. Michel. Referred By: Mike Michel Overread By: KIKE GIPSON
== END ==
LOC: HO.CARD 10:11
PROVIDERS: PCP Internal Medicine; Visit Provider Internal Medicine Cardiovascular Disease
DX: I42.9 Cardiomyopathy, unspecified (principal)
CPT/HCPCS: 93017

== ENCOUNTER → 2022-09-16 10:41 | Outpatient (REF) | payer MEDICARE, MEDICAID, SELFPAY ==
--- NOTE | 2022-09-16 10:44 | CA_ITS ---
Transthoracic Echocardiogram Patient (Last, First, Middle): Princess Valle Z Gender: Female Date of : 1965 Age: 57 Procedure Date: 09/16/2022 Procedure Type: Transthoracic Echocardiogram Location: OP Height: 157.48 cm Weight: 63.5 kg BSA: 1.64 m2 Heart Rate: bpm BP: 120 / 66 mmHg Garment Fitter: TO Referring MD: Mike Michel MD Symptoms: I42.9 - Cardiomyopathy, unspecified Study Quality: Fair/Contrast Conclusions: - Normal left ventricular size, thickness, systolic function, and wall motion. The visually estimated ejection fraction is between 55-60%. Diastolic function is normal for age. - Normal right ventricular cavity size and systolic function. Findings Procedure Information Contrast agent, definity, is being given per protocol without apparent complications. Left Ventricle Normal left ventricular size, thickness, systolic function, and wall motion. The visually estimated ejection fraction is between 55-60%. Diastolic function is normal for age. Right Ventricle Normal right ventricular cavity size and systolic function. Atria The left atrium is normal in size. The right atrium is normal in size. Aortic Valve Normal aortic valve structure and function. There is no aortic valve stenosis. There is no aortic valve regurgitation. Mitral Valve Normal mitral valve structure and function. There is no mitral valve regurgitation. There is no mitral valve stenosis. Pulmonic Valve The pulmonic valve is likely normal. Tricuspid Valve Normal tricuspid valve structure and function. There is trace tricuspid valve regurgitation. Normal right atrial pressure. There is no evidence of pulmonary hypertension. Great Vessels All visible segments of the aorta are normal in size. The visualized portions of the pulmonary artery and branches are normal. Venous The inferior vena cava is normal in size and collapses greater than 50% with inspiration. Pericardium/Pleural There is no evidence of pericardial effusion. Prior Study Comparison Changes noted compared to prior study dated: 02/16/2022. Normal LVEF Measurements 2D Linear Measurements IVSd: 0.72 0.6-0.9/0.6-1.0 cm LVIDd: 4.24 3.9-5.3/4.2-5.9 cm LVIDd Index: 2.59 2.4-3.2/2.2-3.1 cm/m2 LVIDs: 2.87 2.0-3.6 cm LVPWd: 0.71 0.7-1.1 cm LA Diam: 2.70 2.7-3.8/3.0-4.0 cm LAIDs Index: 1.65 1.5-2.3 cm/m2 LV Mass: 110.20 67-162/88-224 g LV Mass Index: 67.20 43-95/49-115 g/m2 LVOT Diam: 1.80 3.0+(-)1.3 cm 2D Systolic Function EF 4C: 65.30 >55% EF 2C: 68.80 >55% EF BiP: 66.70 >55% Mitral Valve MV Pk E: 0.76 MV PK A: 0.81 MV Decel Time: 163.00 E/A: 0.90 E'Lateral: 9.68 E'Medial: 9.36 E/E' Med: 8.10 E/E' Lat: 7.80 PHT: 48.00 MVA PHT: 4.58 Decel [place]: 4.65 Aortic Valve AoV Pk Herb: 1.12 AoV Mn Herb: 0.83 AoV VTI: 0.25 AoV Pk Grad: 5.00 Aov Mn Grad: 3.00 ALBINO Cont.VTI: 1.98 LVOT LVOT Pk Herb: 0.95 LVOT Mn Herb: 0.60 LVOT VTI: 0.20 LVOT Pk Grad: 4.00 LVOT Mn Grad: 2.00 LVOT Diam: 1.80 LVOT Area: 2.54 Diastolic Function MV Pk E: 0.76 MV Pk A: 0.81 E/A: 0.90 E'Medial: 9.36 E/E' Med: 8.10 E' Laterial: 9.68 E/E' Lat: 7.80 Right Ventricle TAPSE (mm): 18.10 TVS' Herb: 9.79 Tricuspid Valve TR Pk Herb: 1.66 TR Pk Grad: 11.00 RA Press: 3.00 RVSP: 14.00 Great Vessels Aorta Sinus of Valsalva: 2.76 2.0-3.[address] [place]: 2.22 1.7-3.4 cm Ao Asc: 2.50 2.1-3.4 cm Ao Arch: 2.30 Updated in Other Vendor System with Status of Final Mike Michel MD electronically signed on 09/18/2022 12:56:04 PM with status of Final
== END ==
LOC: HO.CARD 10:41
PROVIDERS: PCP Internal Medicine; Visit Provider Internal Medicine Cardiovascular Disease
DX: I42.9 Cardiomyopathy, unspecified (principal)
CPT/HCPCS: 93306; Q9957

== ENCOUNTER 2022-12-07 13:11 | Outpatient (REF) | payer MEDICARE, MEDICAID, SELFPAY ==
[2022-12-13 10:23] LABS: HPV mRNA E6/E7 rflx Not Detected (Not Detected)
== END 2022-12-07 13:12 | disposition home or self-care (01) ==
LOC: HO.LNP 13:11
PROVIDERS: PCP Internal Medicine; Visit Provider Advanced Practice Midwife
DX: Z01.419 Encounter for gynecological examination (general) (routine) without abnormal findings (principal); N89.8 Other specified noninflammatory disorders of vagina
CPT/HCPCS: 87624; 88142; G0101

== ENCOUNTER → 2022-12-12 14:34 | Outpatient (BNVA) | payer MEDICARE, MEDICAID, SELFPAY | PROVIDERS: Visit Provider Internal Medicine Cardiovascular Disease | DX: R00.2 Palpitations (principal) | CPT/HCPCS: 99212 ==

== ENCOUNTER → 2022-12-23 14:41 | Outpatient (REF) | payer MEDICARE, MEDICAID, SELFPAY ==
--- NOTE | 2022-12-23 14:47 | HM_ITS ---
* Total monitoring time approximately 6 days. * Underlying rhythm is sinus. Average ventricular rate 81/Min. Range 46 to 160/Min. * About 14% of the time, rate > 100/Min. * Extremely rare supraventricular/ventricular ectopy with minimal burden. * No significant pauses or AV blocks. * No patient markers or events in diary. MTDD
== END ==
LOC: HO.CARD 14:41
PROVIDERS: PCP Internal Medicine; Visit Provider Internal Medicine Cardiovascular Disease
DX: R00.2 Palpitations (principal)
CPT/HCPCS: 93242

== ENCOUNTER → 2022-12-23 14:47 | Outpatient (BNV) | payer MEDICARE, MEDICAID, SELFPAY | PROVIDERS: PCP Internal Medicine; Visit Provider Internal Medicine | DX: I47.1 Supraventricular tachycardia (principal) | CPT/HCPCS: 93244 ==

== ENCOUNTER 2023-03-07 13:25 | Outpatient (REF) | payer MEDICARE, MEDICAID, SELFPAY ==
--- NOTE | ~2023-03-07 | MM_ITS ---
EXAMINATION: MM DIAGNOSTIC DIGITAL BREAST TOMOSYNTHESIS, BILATERAL CLINICAL INFORMATION: Invasive ductal cancer left breast status post lumpectomy 04/09/2021. Due for yearly. COMPARISON: Mammography: 03/07/2022, 01/25/2021, 09/10/2020, 09/04/2020, 08/11/2020, 08/06/2019, TECHNIQUE: Digital mammography is performed in craniocaudal and mediolateral oblique views. Digital breast tomosynthesis is performed in implant-displaced craniocaudal and implant-displaced mediolateral oblique views. Synthesized 2D images are generated from the tomosynthesis. Computer-aided detection (CAD) is performed for this exam. FINDINGS: There are scattered areas of fibroglandular density (ACR BI-RADS breast composition Category b). The implant contours are unremarkable. No evidence of complication. Postoperative scarring in the left breast upper outer quadrant, appearing stable. Post benign biopsy clips noted in both breasts quadrants. The overall parenchymal pattern in both breasts appears stable, although there are improving post treatment related changes of skin thickening and trabecular thickening of the left breast since the prior study. A right chest port has been removed. No new suspicious masses, recurrent or suspicious grouped calcifications, or areas of architectural distortion aside from post treatment related scarring. MM/MM tomosynthesis diag imp BI IMPRESSION: There are no findings suspicious for malignancy in either breast. There are no findings suspicious for recurrence in the left breast. Improving post radiation and treatment related changes in the left breast noted. No implant complication noted. Right chest port has been removed. Recommend 1 year follow-up to conclude three-year diagnostic post lumpectomy follow-up of the left breast. ASSESSMENT: BI-RADS BI-RADS 2 - Benign Findings RECOMMENDATION: 12 month diagnostic follow up Results were provided to the patient at time of visit by the technologist. This patient's information was entered into a reminder system with a target due date for their next mammogram.
== END 2023-03-07 13:26 | disposition home or self-care (01) ==
LOC: HO.MAMMO 13:25
PROVIDERS: PCP Internal Medicine; Visit Provider Internal Medicine
DX: Z85.3 Personal history of malignant neoplasm of breast (principal)
CPT/HCPCS: 77062; 77066

== ENCOUNTER 2023-04-17 12:42 | Outpatient (AMB) | payer MEDICARE, MEDICAID, SELFPAY ==
[2023-04-17 12:50] VITALS: BP 108/70; BMI 26.7
--- NOTE | 2023-04-17 12:50 | MHC.PC.OV ---
Vital Signs 04/17/23 12:50 Height 5 ft 2 in Weight 146 lb BMI 26.7 BP 108/70 Blood Pressure Location Lt brachial Position Sitting Intake Visit Reasons: Back pain/feels weak Intake Note: Patient here c/o low back pain, weakness Outside Repairer Special Required: No Accompanied by: Self / Same As Patient Allergies Penicillins Adverse Reaction (Intermediate, Verified 04/17/23 13:03) Nausea and Vomiting Medication List - Last Reconciled 04/17/23 by Beth Walter MD anastrozole (Arimidex) 1 mg PO DAILY citalopram 40 mg PO BEDTIME 90 days hydrocortisone 2.5% (Anusol-HC) 1 appl ME BEDTIME PRN hydroxyzine pamoate 25 mg PO BID PRN 90 days ibuprofen 600 mg PO Q6H PRN levetiracetam (Keppra) 500 mg PO Q12H melatonin 10 mg PO BEDTIME PRN 30 days trazodone 50 mg PO BEDTIME PRN Tobacco use date assessed: 04/17/23 Dental Screening Dental Screen Date: 04/17/23 Did you have a dental visit in the last 12 months?: Yes Did you have a dental problem in the last 6 months where you did not have access to dental care?: No Was dental information given to patient?: Patient has dentist HPI HPI Comments History of Present Illness Details This is a 57-year-old female with mild recurrent major depression, generalized anxiety disorder, seizures and history of invasive ductal carcinoma left breast that comes today complaining of chronic fatigue and tiredness associated with weakness that started few weeks ago. Depression and anxiety has been stable with citalopram. Has not had a seizure in over 6 months. Has been on anastrozole for left breast cancer for about 2 years to complete 5 years and this is follow by Hematology-Oncology. Last mammogram done recently was negative. Had colonoscopy done 2019 showing tubular adenoma and will be referred to Gastroenterology. [facility] Medical History (Updated 04/17/23 @ 13:16 by Beth Walter MD) Epidermal cyst DCIS (ductal carcinoma in situ) JOSI (generalized anxiety disorder) Mild recurrent major depression GERD (gastroesophageal reflux disease) Invasive ductal carcinoma of left breast Left breast mass Pelvic floor weakness Shortness of breath Daytime sleepiness Snoring Leg weakness Chronic fatigue Depression with anxiety Seizures Surgical History History of removal of cyst (~03/03/22) History of lumpectomy of left breast H/O abdominoplasty History of breast biopsy History of bilateral breast implants History of tubal ligation Family History Father CVD (cardiovascular disease) Mother Hypertension Daughter No problems noted. Family/Other FH: mental illness Breast cancer Social History Household Members: Spouse, Significant Other and Children Housing: House Alcohol intake: current Alcohol intake frequency: holidays/special occasions only Alcohol type: wine Patient Tobacco Use Status: Current everyday Tobacco user Tobacco use type: Cigarette Cigarette Packs Per Day: 0.5 Cigarettes Per Day: 10 Years Smoked: 35 +/- e-Cigarette/Vaping Use: Never Used Second Hand Smoke Exposure: No service: No Current occupational status: unemployed Cognitive needs: No Hearing needs: No Vision needs: Yes Female Reproductive History Menstrual Age of Menarche: 15 Questionnaire PHQ-9 Over the last 2 weeks, how often have you been bothered by any of the following problems? 1. Little interest or pleasure in doing things: not at all 2. Feeling down, depressed, or hopeless: not at all 3. Trouble falling or staying asleep, or sleeping too much: several days 4. Feeling tired or having little energy: not at all 5. Poor appetite or overeating: not at all 6. Feeling bad about yourself - or that you are a failure or have let yourself or your family down: not at all 7. Trouble concentrating on things, such as reading the newspaper or watching television: not at all 8. Moving or speaking so slowly that other people could have noticed. Or the opposite - being so fidgety or restless that you have been moving around a lot more than usual: not at all 9. Thoughts that you would be better off or of hurting yourself in some way: not at all Total score: 1 Depression Screening Interpretation: Positive Depression Screening Follow-up: Existing condition and In treatment Depression Screening Done: Yes Source: Developed by Drs. Wes Bryan, Nilsa Munoz, Jose Almazan and colleagues, with an educational bay from [employer]. Thrive Questionnaire Date Thrive assessed: 04/17/23 I am a: Patient What is your living situation today?: I have a steady place to live Within the past 12 months, did the food you bought not last and you didn't have the money to get more?: Never true Within the past 12 months, did you worry whether your food would run out before you got money to buy more?: Never true Do you have trouble paying for medicines?: No Do you have trouble getting transportation to medical appointments?: No Do you have trouble paying your heating and electricity bill?: No Do you have trouble taking care of your child, family member or friend?: No Do you have trouble with day-to-day activities such as bathing, preparing meals, shopping, managing finances, etc.?: No Are you currently unemployed and looking for a job?: No Are you interested in more education?: No Please select the resources that you would like help with: None Currently or been in a relationship where the following occur: no concerns reported AUDIT C Alcohol Use Questionnaire (AUDIT-C) 1. How often do you have a drink containing alcohol?: Monthly or less 2. How many drinks containing alcohol do you have on a typical day when you are drinking?: 1 or 2 3. How often do you have six or more drinks on one occasion?: Never Total Score: 1 Score Reviewed/Action Taken: No JOSI-7 AMB Questionnaire JOSI-7 Date JOSI - 7 assessed: 04/17/23 Feeling nervous, anxious, or on edge: 0 = Not at all Not being able to stop or control worryin = Not at all Worrying too much about different things: 0 = Not at all Trouble relaxin = Not at all Being so restless that it is hard to sit still: 0 = Not at all Becoming easily annoyed or irritable: 0 = Not at all Feeling afraid as if something awful might happen: 0 = Not at all Total JOSI-7 score (0-4 normal; 5-9 mild; 10-14 moderate; 15-21 severe): 0 Source: Developed by Drs. Wes Bryan, Nilsa Munoz, Jose Almazan and colleagues, with an educational bay from [employer]. JOSI-7 Assessment Billing JOSI-7 Assessment Tool: JOSI-7 Assessment 59707 Review of Systems Const All systems reviewed & are unremarkable except as noted in HPI and below Eyes Reports no additional complaints, Denies change in vision and Denies other visual disturbances Card Denies chest pain at rest, Denies chest pain with activity, Denies edema, Denies irregular heart rhythm, Denies claudication, Denies dyspnea, Denies dyspnea on exertion, Denies orthopnea, Denies paroxysmal nocturnal dyspnea and Denies slow heart rate Resp Denies cough, Denies dyspnea and Denies dyspnea on exertion GI Denies abdominal pain, Denies change in bowel habits, Denies excessive flatus, Denies nausea and Denies vomiting Denies urinary incontinence, Denies urinary hesitancy and Denies urinary urgency Musc Denies abnormal gait, Denies atrophy, Denies deformity and Denies limited range of motion Skin/Breast Denies bleeding lesions, Denies changing lesions and Denies rash Neuro Denies abnormal gait, Denies behavioral changes and Denies lack of coordination Psych Denies behavioral changes Physical exam (Primary Care) Vital Signs: Last Vital Signs BP 108/70 04/17/23 12:50 BMI result Body Mass Index 26.7 Tobacco/Smoking Status: Tobacco use Status Tobacco use date assessed 04/17/23 04/17/23 12:55 Patient Tobacco Use Status Current everyday Tobacco 04/17/23 12:55 Tobacco use type Cigarette 04/17/23 12:55 e-Cigarette/Vaping Use Never Used 04/17/23 12:55 PHQ-9: PHQ-9 Score PHQ-9: Total score 1 04/17/23 12:55 Depression Screening Interpretation: Positive Depression Screening Follow-up: Existing condition and In treatment Thrive Assessment: Date of Thrive Assessment Date Thrive assessed 04/17/23 04/17/23 12:55 Currently or been in a relationship where the following occur: no concerns reported Eyes General: appearance normal, both eyes and all related structures Eyelids: Yes eyelids normal Conjunctivae: conjunctivae normal Neck Neck: Yes normal visual inspection and Yes supple Resp Effort & Inspection: normal respiratory effort Auscultation: clear to auscultation bilaterally Cardio Jugular venous distension: no JVD Rate: regular rate Rhythm: regular rhythm Heart sounds: S1 normal heart sound present and S2 normal heart sound present Extrem General: Yes full ROM Psych Appearance: grossly normal Office Procedures Flu Questionnaire Does the patient have a severe egg allergy?: No Immunizations flu vacc [id number] 6mos up(PF) 60 mcg(15 mcgx4)/0.5 mL IM syringe Performing Provider: Beth Walter MD [place] [facility] [place] [facility] Documented (not given) by: ALVIN Irizarry on 04/17/23 12:57 Reason Not Given: Patient Refused Assessment and Plan Assessment & Plan (1) Mild recurrent major depression: Code(s): F33.0 - Major depressive disorder, recurrent, mild Plan: Continue citalopram. (2) JOSI (generalized anxiety disorder): Code(s): F41.1 - Generalized anxiety disorder Plan: Continue citalopram. (3) Invasive ductal carcinoma of left breast: Code(s): C50.912 - Malignant neoplasm of unspecified site of left female breast Plan: Continue anastrozole. (4) Seizures: Code(s): R56.9 - Unspecified convulsions Plan: Continue Keppra Orders: Orders Influenza [id number] Immunization Today Z23 - Encounter for immunization Vitamin D 25-OH Total Today E55.9 - Vitamin D deficiency, unspecified IRON PROFILE Today D64.9 - Anemia, unspecified, I42.9 - Cardiomyopathy, unspecified Thyroid Stimulating Hormone Today R53.82 - Chronic fatigue, unspecified Vitamin B12 and Folate Today E53.8 - Deficiency of other specified B group vitamins, R53.82 - Chronic fatigue, unspecified UA CC w/rflx Micro + Cult Today R30.0 - Dysuria Lipid Panel Today E78.5 - Hyperlipidemia, unspecified Comprehensive [place]. Panel Fast Today I42.9 - Cardiomyopathy, unspecified Complete Blood Count Auto Diff Today D64.9 - Anemia, unspecified, I42.9 - Cardiomyopathy, unspecified Referrals Ophthalmology Referral H53.8 - Other visual disturbances Gastroenterology Referral D12.6 - Benign neoplasm of colon, unspecified Coding Level of Care Code Est Pt Level 4 (62154) Diagnoses Mild recurrent major depression F33.0 JOSI (generalized anxiety disorder) F41.1 Invasive ductal carcinoma of left breast C50.912 Seizures R56.9 Additional Codes PHQ-9 - 40169 - PHQ-9 Billing: ([id number]) JOSI-7 Assessment Billing - JOSI-7 Assessment Tool: JOSI-7 Assessment 04883 ([id number]) Time Spent (min) 23
== END 2023-04-17 13:14 | disposition home or self-care (01) ==
PROVIDERS: PCP Internal Medicine; Visit Provider Internal Medicine
DX: F33.0 Major depressive disorder, recurrent, mild (principal); R56.9 Unspecified convulsions; C50.912 Malignant neoplasm of unspecified site of left female breast; F41.1 Generalized anxiety disorder
CPT/HCPCS: 99214

== ENCOUNTER 2023-04-28 10:01 | Outpatient (REF) | payer MEDICARE, MEDICAID, SELFPAY ==
[2023-04-28 10:32] LABS: MANUAL DIFF FLAG NO
[2023-04-28 11:53] LABS: Appearance Urine Clear; Color Urine Yellow; Glucose Urine UA Negative (Negative); Leukocyte Esterase Urine Small (1+) (Negative); Nitrite Urine Negative (Negative); PH 5.5 (5.0-9.0); Specific Gravity - Urine >= 1.030 (1.005-1.025); UMIC TRIGGER UACC YES; Urine Blood Small (1+) (Negative); Urine Ketones Negative (Negative); Urine Protein Negative (Neg-Trace)
[2023-04-28 11:54] LABS: Basophils Absolute Auto 0.1 X10*3/uL (0.0-0.2); Eosinophils Absolute Auto 0.2 X10*3/uL (0.0-0.4); Hematocrit 47.4 % (37.0-47.0); Hemoglobin 15.5 g/dl (12.0-16.0); Imm Gran Abs Auto 0.03 X10*3/uL (0.00-0.03); Imm Gran Pct Auto 0.4 % (0.0-0.4); Lymphocytes Absolute Auto 2.5 X10*3/uL (1.2-4.9); Lymphocytes Percent Auto 33.5 % (20-40); Mean Corpuscular HGB Conc 32.7 g/dl (31.0-35.0); Mean Corpuscular Hemoglobin 28.8 pg (27.0-33.0); Mean Corpuscular Volume 87.9 fL (80.0-98.0); Monocytes Absolute Auto 0.5 X10*3/uL (0.1-1.2); Monocytes Percent Auto 6.5 % (2-11); Neutrophils Absolute Auto 4.2 x10*3/uL (2.0-8.3); Neutrophils Percent Auto 56.6 % (45-73); Platelet Count 315 X10*3/uL (160-400); Red Blood Count 5.39 X10*6/uL (4.20-5.50); Red Cell Distribution Width 13.4 % (11.0-16.0); White Blood Count 7.3 X10*3/uL (4.8-10.8)
[2023-04-28 12:02] LABS: Bacteria Urine 4+ (None Seen); Hyaline Casts Urine 0-2 /LPF (0-2); UACC Culture Trigger YES
[2023-04-28 12:49] LABS: Alanine Aminotransferase 10 U/L (0-31); Alkaline Phosphatase 86 U/L (39-117); Anion Gap 9 (12-20); Aspartate Amino Transferase 21 U/L (5-31); Bilirubin Total 0.3 mg/dL (0.0-1.0); Blood Urea Nitrogen 21 mg/dL (9-16); Calcium 9.3 mg/dL (8.4-10.2); Carbon Dioxide 27 mmol/L (22-29); Chloride 109 mmol/L (96-108); Cholesterol 216 mg/dL (<200); Estimated Glomerular Filt Rate > 60; Glucose Fasting 78 mg/dL (60-99); HDL Cholesterol 53 mg/dL (>40); Iron 53 mcg/dL (30-160); LDL Cholesterol Calculated 147 mg/dL (<100); Percent Iron Saturation 19 % (15-50); Potassium 4.3 mmol/L (3.3-5.1); Sodium 141 mmol/L (135-145); Thyroid Stimulating Hormone 2.54 uIU/mL (0.32-4.0); Total Iron Binding Capacity 280 mcg/dL (228-428); Total Protein 6.7 g/dL (6.5-8.0); Triglycerides 83 mg/dL (<150); Unsaturated Iron Binding 227 ug/dL; Vitamin D 25-OH Total 34.2 ng/mL (>30)
[2023-04-28 13:01] LABS: Folate 8.4 ng/mL (> or = 4.0); Vitamin B12 936 pg/mL (200-900)
== END 2023-04-28 10:02 | disposition home or self-care (01) ==
LOC: HO.LAB 10:01
PROVIDERS: PCP Internal Medicine; Visit Provider Internal Medicine
DX: R53.82 Chronic fatigue, unspecified (principal); E78.5 Hyperlipidemia, unspecified; I42.9 Cardiomyopathy, unspecified; D64.9 Anemia, unspecified; E55.9 Vitamin D deficiency, unspecified; E53.8 Deficiency of other specified B group vitamins; R30.0 Dysuria
CPT/HCPCS: 36415; 80053; 80061; 81001; 82306; 82607; 82746; 83540; 84443; 85025; 87086; 87088; 87186

== ENCOUNTER 2023-05-24 10:50 | Outpatient (AMB) | payer MEDICARE, MEDICAID, SELFPAY ==
--- NOTE | 2023-05-24 11:03 | MHC.OFFVIS ---
Intake Vital Signs 05/24/23 11:06 Height 5 ft 2 in Weight 147 lb 11.355 oz BMI 27.0 BP 97/62 Blood Pressure Location Rt brachial Position Sitting Pulse 82 Intake Visit Reasons: Colonoscopy screening Intake Note: Princess presents in the office as a colonoscopy screening. CC: Well Drill Operator Rotary Drill Required: No Allergies Penicillins Adverse Reaction (Intermediate, Verified 05/24/23 11:07) Nausea and Vomiting Medication List - Last Reconciled 05/24/23 by [place] PA-C anastrozole (Arimidex) 1 mg PO DAILY citalopram 40 mg PO BEDTIME 90 days hydrocortisone 2.5% (Anusol-HC) 1 appl [place] BEDTIME PRN hydroxyzine pamoate 25 mg PO BID PRN 90 days ibuprofen 600 mg PO Q6H PRN levetiracetam (Keppra) 500 mg PO Q12H melatonin 10 mg PO BEDTIME PRN 30 days HPI HPI Comments History of Present Illness Details A 57 y/o f colon 2019 [place] - adenoma Breastcancer/ lumpectomy/radiation-anastrozole meds for reflux- stoppedher -sx intermittentil-symptoms ongoing for years. No nausea vomiting or weight loss Appetite is good, has bloating , no other general complaints No hematemesis, hematochezia fever or chills PFSH Medical History (Updated 05/28/23 @ 14:56 by La Costa PA-C) Epidermal cyst DCIS (ductal carcinoma in situ) JOSI (generalized anxiety disorder) Mild recurrent major depression GERD (gastroesophageal reflux disease) Invasive ductal carcinoma of left breast Left breast mass Pelvic floor weakness Shortness of breath Daytime sleepiness Snoring Leg weakness Chronic fatigue Depression with anxiety Seizures Surgical History (Updated 05/24/23 @ 11:07 by ALVIN Harris) Hx of colonoscopy History of removal of cyst (~03/03/22) History of lumpectomy of left breast H/O abdominoplasty History of breast biopsy History of bilateral breast implants History of tubal ligation Family History Father CVD (cardiovascular disease) Mother Hypertension Daughter No problems noted. Family/Other FH: mental illness Breast cancer Social History Household Members: Spouse, Significant Other and Children Housing: House Alcohol intake: current Alcohol intake frequency: holidays/special occasions only Alcohol type: wine Patient Tobacco Use Status: Current everyday Tobacco user Tobacco use type: Cigarette Cigarette Packs Per Day: 0.5 Cigarettes Per Day: 10 Years Smoked: 35 +/- e-Cigarette/Vaping Use: Never Used Second Hand Smoke Exposure: No service: No Current occupational status: unemployed Cognitive needs: No Hearing needs: No Vision needs: Yes Female Reproductive History Menstrual Age of Menarche: 15 Review of Systems Const All systems reviewed & are unremarkable except as noted in HPI and below Card Denies chest pain and Denies dyspnea Resp Denies dyspnea GI Denies abdominal pain, Reports bloating and Reports heartburn Physical Exam Vital Signs: Last Vital Signs Pulse 82 05/24/23 11:06 BP 97/62 05/24/23 11:06 BMI result Body Mass Index 27.0 Const General: cooperative, healthy appearing and comfortable Orientation/consciousness: patient oriented x3 Limitations: no limitations Eyes Sclerae: sclerae normal Resp Effort & Inspection: normal respiratory effort and able to speak in complete sentences Auscultation: clear to auscultation bilaterally, no rales, no rhonchi and no wheezes Cardio Rate: regular rate Rhythm: regular rhythm Heart sounds: S1 normal heart sound present and S2 normal heart sound present GI Palpation (GI): Soft to palpation and nontender Auscultation: normal bowel sounds Neuro General: patient oriented x3 Extrem General: Yes full ROM Psych Appearance: grossly normal Speech and movement: Normal speech and movement present Affect: normal affect Results Reviewed Results Reviewed: [address] Molina adenoma Assessment & Plan Assessment & Plan (1) Tubular adenoma of colon: Comment: 2019 Code(s): D12.6 - Benign neoplasm of colon, unspecified Plan: Polyp surveillance colonoscopy (2) GERD (gastroesophageal reflux disease): Comment: years sx inconsistent refers no meds Hx sz- no activity Code(s): K21.9 - Gastro-esophageal reflux disease without esophagitis Qualifiers: Esophagitis presence: esophagitis presence not specified Qualified Code(s): K21.9 - Gastro-esophageal reflux disease without esophagitis Plan: Reflux precautions reviewed (3) Bloating: Comment: Reviewed will fodmap Code(s): R14.0 - Abdominal distension (gaseous) Plan: egd/ colon Plan egd/ colon Orders: Orders EGD/[place] Combo - GI Use Only 05/24/23 D05.10 - Intraductal carcinoma in situ of unspecified breast, D12.6 - Benign neoplasm of colon, unspecified Medications: New bisacodyl (Dulcolax (bisacodyl)) Day before procedure, prep day Take 4 tablets by mouth upon awakening followed by large glass of water 20 mg (4 x 5 mg) PO ONCE 4 tabs 0RF colonoscopy prep 1 day Z12.11 - Encounter for screening for malignant neoplasm of colon polyethylene glycol 3350 (Miralax) Take as directed by mouth the day before your procedure. 238 grams PO ONCE 238 grams 0RF laxative effect 1 day Patient Instructions: egd/ colon Discussed procedures, risks need for escorted due to anesthesia MiraLax Gatorade prep, reviewed literature Reflux precautions, avoid culprits Continue usual medications Coding Level of Care Code New Pt Level 3 (99430) Diagnoses Tubular adenoma of colon D12.6 Gastroesophageal reflux disease, unspecified whether esophagitis present K21.9 Esophagitis presence: esophagitis presence not specified Bloating R14.0 Time Spent (min) 30 Comment
[2023-05-24 11:06] VITALS: BP 97/62; PULSE 82; BMI 27.0
== END 2023-05-24 14:27 | disposition home or self-care (01) ==
PROVIDERS: PCP Internal Medicine; Visit Provider Physician Assistant
DX: D12.6 Benign neoplasm of colon, unspecified (principal); K21.9 Gastro-esophageal reflux disease without esophagitis; R14.0 Abdominal distension (gaseous)
CPT/HCPCS: 99203

== ENCOUNTER → 2023-05-24 10:50 | Outpatient (BNVA) | payer MEDICARE, MEDICAID, SELFPAY | PROVIDERS: PCP Internal Medicine; Visit Provider Physician Assistant | DX: K21.9 Gastro-esophageal reflux disease without esophagitis (principal); D12.6 Benign neoplasm of colon, unspecified; R14.0 Abdominal distension (gaseous) | CPT/HCPCS: 99202 ==

== ENCOUNTER 2023-08-24 10:29 | Outpatient (AMB) | payer MEDICARE, MEDICAID, SELFPAY ==
[2023-08-24 10:47] VITALS: BP 110/80; BMI 27.6
--- NOTE | 2023-08-24 10:47 | A.OFFPC_ITS ---
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: No Accompanied by: Self / Same As Patient Allergies Penicillins Adverse Reaction (Intermediate, Verified 08/24/23 10:58) Nausea and Vomiting Medication List - Last Reconciled 08/24/23 by Beth Walter MD anastrozole (Arimidex) 1 mg PO DAILY bisacodyl (Dulcolax (bisacodyl)) 20 mg (4 x 5 mg) PO ONCE 1 day citalopram 40 mg PO BEDTIME 90 days hydrocortisone 2.5% (Anusol-HC) 1 appl OR BEDTIME PRN hydroxyzine pamoate 25 mg PO BID PRN 90 days ibuprofen 600 mg PO Q6H PRN levetiracetam (Keppra) 500 mg PO Q12H melatonin 10 mg PO BEDTIME PRN 30 days polyethylene glycol 3350 (Miralax) 238 grams PO ONCE 1 day Tobacco use date assessed: 08/24/23 Dental Screening Dental Screen Date: 08/24/23 Did you have a dental visit in the last 12 months?: Yes Did you have a dental problem in the last 6 months where you did not have access to dental care?: No Was dental information given to patient?: Patient has dentist HPI HPI Comments History of Present Illness Details This is a 58-year-old female with mild recurrent major depression and seizures that comes for her physical exam. Depression stable with citalopram. Has not had a seizure in over a year. Last mammogram was February 2023 and was normal. Last Pap smear was November 2022 and was normal. Last colonoscopy was 2018 showing tubular adenomas and will have colonoscopy this year. History of invasive ductal carcinoma of the breast diagnosed in 2020 receiving chemotherapy and still medications for it. She has been follow by Hematology-Oncology. [facility], LAT[facility] Medical History (Updated 08/24/23 @ 11:38 by Beth Walter MD) Cardiomyopathy Epidermal cyst DCIS (ductal carcinoma in situ) JOSI (generalized anxiety disorder) Mild recurrent major depression GERD (gastroesophageal reflux disease) Invasive ductal carcinoma of left breast Left breast mass Pelvic floor weakness Shortness of breath Daytime sleepiness Snoring Leg weakness Chronic fatigue Depression with anxiety Seizures Surgical History Hx of colonoscopy History of removal of cyst (~03/03/22) History of lumpectomy of left breast H/O abdominoplasty History of breast biopsy History of bilateral breast implants History of tubal ligation Family History Father CVD (cardiovascular disease) Mother Hypertension Daughter No problems noted. Family/Other FH: mental illness Breast cancer Social History Household Members: Spouse, Significant Other and Children Housing: House Alcohol intake: current Alcohol intake frequency: holidays/special occasions only Alcohol type: wine Patient Tobacco Use Status: Current everyday Tobacco user Tobacco use type: Cigarette Cigarette Packs Per Day: 0.5 Cigarettes Per Day: 10 Years Smoked: 35 +/- e-Cigarette/Vaping Use: Never Used Second Hand Smoke Exposure: No service: No Current occupational status: unemployed Cognitive needs: No Hearing needs: No Vision needs: Yes Female Reproductive History Menstrual Age of Menarche: 15 Questionnaire PHQ-9 Over the last 2 weeks, how often have you been bothered by any of the following problems? 1. Little interest or pleasure in doing things: not at all 2. Feeling down, depressed, or hopeless: not at all 3. Trouble falling or staying asleep, or sleeping too much: not at all 4. Feeling tired or having little energy: not at all 5. Poor appetite or overeating: not at all 6. Feeling bad about yourself - or that you are a failure or have let yourself or your family down: not at all 7. Trouble concentrating on things, such as reading the newspaper or watching television: not at all 8. Moving or speaking so slowly that other people could have noticed. Or the opposite - being so fidgety or restless that you have been moving around a lot more than usual: not at all 9. Thoughts that you would be better off or of hurting yourself in some way: not at all Total score: 0 Depression Screening Interpretation: Negative Depression Screening Done: Yes 35979 - PHQ-9 Billing: Yes Source: Developed by Drs. Wes Bryan, Jose Davenport and colleagues, with an educational bay from [employer]. Thrive Questionnaire Date Thrive assessed: 08/24/23 I am a: Patient What is your living situation today?: I have a steady place to live Within the past 12 months, did the food you bought not last and you didn't have the money to get more?: Never true Within the past 12 months, did you worry whether your food would run out before you got money to buy more?: Never true Do you have trouble paying for medicines?: No Do you have trouble getting transportation to medical appointments?: No Do you have trouble paying your heating and electricity bill?: No Do you have trouble taking care of your child, family member or friend?: No Do you have trouble with day-to-day activities such as bathing, preparing meals, shopping, managing finances, etc.?: No Are you currently unemployed and looking for a job?: No Are you interested in more education?: No Please select the resources that you would like help with: None Currently or been in a relationship where the following occur: no concerns reported THRIVE Score: 0 AUDIT C Alcohol Use Questionnaire (AUDIT-C) 1. How often do you have a drink containing alcohol?: Monthly or less 2. How many drinks containing alcohol do you have on a typical day when you are drinking?: 1 or 2 3. How often do you have six or more drinks on one occasion?: Never Total Score: 1 Score Reviewed/Action Taken: No JOSI-7 AMB Questionnaire JOSI-7 Date JOSI - 7 assessed: 08/24/23 Feeling nervous, anxious, or on edge: 1 = Several days Not being able to stop or control worryin = Not at all Worrying too much about different things: 3 = Nearly every day Trouble relaxin = Not at all Being so restless that it is hard to sit still: 0 = Not at all Becoming easily annoyed or irritable: 1 = Several days Feeling afraid as if something awful might happen: 1 = Several days Total JOSI-7 score (0-4 normal; 5-9 mild; 10-14 moderate; 15-21 severe): 6 Source: Developed by Nilsa Cook Kurt Kroenke and colleagues, with an educational bay from [employer]. JOSI-7 Assessment Billing JOSI-7 Assessment Tool: JOSI-7 Assessment 99965 Review of Systems Const All systems reviewed & are unremarkable except as noted in HPI and below Eyes Reports no additional complaints, Denies change in vision and Denies other visual disturbances Card Denies chest pain at rest, Denies chest pain with activity, Denies edema, Denies irregular heart rhythm, Denies claudication, Denies dyspnea, Denies dyspnea on exertion, Denies orthopnea, Denies paroxysmal nocturnal dyspnea and Denies slow heart rate Resp Denies cough, Denies dyspnea and Denies dyspnea on exertion GI Denies abdominal pain, Denies change in bowel habits, Denies excessive flatus, Denies nausea and Denies vomiting Denies urinary incontinence, Denies urinary hesitancy and Denies urinary urgency Musc Denies abnormal gait, Denies atrophy, Denies deformity and Denies limited range of motion Skin/Breast Denies bleeding lesions, Denies changing lesions and Denies rash Neuro Denies abnormal gait, Denies behavioral changes, Denies confusion and Denies lack of coordination Psych Denies behavioral changes and Denies confusion Physical exam (Primary Care) Vital Signs: Last Vital Signs BP 110/80 08/24/23 10:47 BMI result Body Mass Index 27.6 Tobacco/Smoking Status: Tobacco use Status Tobacco use date assessed 08/24/23 08/24/23 10:54 Patient Tobacco Use Status Current everyday Tobacco 08/24/23 10:54 Tobacco use type Cigarette 08/24/23 10:54 e-Cigarette/Vaping Use Never Used 08/24/23 10:54 PHQ-9: PHQ-9 Score PHQ-9: Total score 0 08/24/23 11:04 Depression Screening Interpretation: Negative Thrive Assessment: Date of Thrive Assessment Date Thrive assessed 08/24/23 08/24/23 10:54 Currently or been in a relationship where the following occur: no concerns reported Const General: No confusion Orientation/consciousness: patient oriented x3 and No confusion HENMT Head: Yes normal to inspection, Yes normocephalic and Yes atraumatic Ears: external ears normal Eyes General: appearance normal, both eyes and all related structures Eyelids: Yes eyelids normal Conjunctivae: conjunctivae normal Neck Neck: Yes normal visual inspection and Yes supple Resp Effort & Inspection: normal respiratory effort Auscultation: clear to auscultation bilaterally Cardio Jugular venous distension: no JVD Rate: regular rate Rhythm: regular rhythm Heart sounds: S1 normal heart sound present and S2 normal heart sound present GI Inspection: Yes normal to inspection Palpation (GI): Soft to palpation and nontender Auscultation: normal bowel sounds Skin General skin exam: no rashes or lesions noted Neuro General: patient oriented x3, no focal motor deficits and No confusion Extrem General: Yes full ROM Psych Appearance: grossly normal Assessment and Plan Assessment & Plan (1) Physical exam: Code(s): Z00.00 - Encounter for general adult medical examination without abnormal findings Plan: Repeat in a year. (2) Mild recurrent major depression: Code(s): F33.0 - Major depressive disorder, recurrent, mild Plan: Continue citalopram. (3) Seizures: Code(s): R56.9 - Unspecified convulsions Plan: Continue Keppra. (4) Invasive ductal carcinoma of left breast: Code(s): C50.912 - Malignant neoplasm of unspecified site of left female breast Plan: Continue anastrozole. Follow-up with Hematology-Oncology. Orders: Orders Lipid Panel Today Z00.00 - Encounter for general adult medical examination without abnormal findings Complete Blood Count Auto Diff Today R56.9 - Unspecified convulsions Comprehensive [employer]. Panel Fast Today Z00.00 - Encounter for general adult medical examination without abnormal findings Medications: New diclofenac sodium 1% (Arthritis Pain (diclofenac)) apply to single elbow, wrist or hand; for hand includes palm/fingers/back of hand 2 grams topical QID 30 days 100 grams 1RF Coding Level of Care Code Est Pt Prev Care 40-64y(05901) Diagnoses Physical exam Z00.00 Mild recurrent major depression F33.0 Seizures R56.9 Invasive ductal carcinoma of left breast C50.912 Additional Codes JOSI-7 Assessment Billing - JOSI-7 Assessment Tool: JOSI-7 Assessment 64221 ([id number]) Time Spent (min) 34
== END 2023-08-24 11:12 | disposition home or self-care (01) ==
PROVIDERS: PCP Internal Medicine; Visit Provider Internal Medicine
DX: Z00.00 Encounter for general adult medical examination without abnormal findings (principal); F33.0 Major depressive disorder, recurrent, mild; R56.9 Unspecified convulsions; C50.912 Malignant neoplasm of unspecified site of left female breast
CPT/HCPCS: 99396

== ENCOUNTER 2023-09-13 11:24 | Outpatient (REF) | payer MEDICARE, MEDICAID, SELFPAY ==
[2023-09-13 11:45] LABS: MANUAL DIFF FLAG NO
[2023-09-13 12:18] LABS: Basophils Absolute Auto 0.1 X10*3/uL (0.0-0.2); Basophils Percent Auto 1.1 % (0-2); Eosinophils Absolute Auto 0.1 X10*3/uL (0.0-0.4); Eosinophils Percent Auto 1.5 % (0-4); Hematocrit 46.2 % (37.0-47.0); Hemoglobin 15.4 g/dl (12.0-16.0); Imm Gran Abs Auto 0.03 X10*3/uL (0.00-0.03); Imm Gran Pct Auto 0.5 % (0.0-0.4); Mean Corpuscular HGB Conc 33.3 g/dl (31.0-35.0); Mean Corpuscular Hemoglobin 29.6 pg (27.0-33.0); Mean Corpuscular Volume 88.8 fL (80.0-98.0); Mean Platelet Volume 8.6 fL (9.4-12.3); Monocytes Absolute Auto 0.5 X10*3/uL (0.1-1.2); Monocytes Percent Auto 7.8 % (2-11); Neutrophils Absolute Auto 3.8 x10*3/uL (2.0-8.3); Neutrophils Percent Auto 58.1 % (45-73); Platelet Count 300 X10*3/uL (160-400); Red Cell Distribution Width 13.2 % (11.0-16.0); White Blood Count 6.5 X10*3/uL (4.8-10.8)
[2023-09-13 12:19] LABS: Appearance Urine Clear; Color Urine Yellow; Glucose Urine UA Negative (Negative); Leukocyte Esterase Urine Trace (Negative); Nitrite Urine Negative (Negative); PH 5.5 (5.0-9.0); Specific Gravity - Urine 1.025 (1.005-1.025); UMIC TRIGGER UACC YES; Urine Blood Moderate (2+) (Negative); Urine Ketones Negative (Negative); Urine Protein Negative (Neg-Trace)
[2023-09-13 12:24] LABS: Bacteria Urine None Seen (None Seen); Hyaline Casts Urine 0-2 /LPF (0-2); Squamous Epithelial Cell Urine 0-2 /HPF (0-2); WBC Urine 0-5 /HPF (0-5)
[2023-09-13 12:50] LABS: Alanine Aminotransferase 20 U/L (0-31); Albumin Level 3.9 g/dL (3.5-5.0); Alkaline Phosphatase 86 U/L (39-117); Anion Gap 11 (12-20); Aspartate Amino Transferase 23 U/L (5-31); Bilirubin Total 0.4 mg/dL (0.0-1.0); Blood Urea Nitrogen 16 mg/dL (9-16); Calcium 9.6 mg/dL (8.4-10.2); Carbon Dioxide 28 mmol/L (22-29); Chloride 106 mmol/L (96-108); Cholesterol 235 mg/dL (<200); Estimated Glomerular Filt Rate > 60; Glucose Fasting 83 mg/dL (60-99); HDL Cholesterol 47 mg/dL (>40); LDL Cholesterol Calculated 161 mg/dL (<100); Potassium 4.4 mmol/L (3.3-5.1); Sodium 141 mmol/L (135-145); Total Protein 6.8 g/dL (6.5-8.0); Triglycerides 138 mg/dL (<150)
== END 2023-09-13 11:25 | disposition home or self-care (01) ==
LOC: HO.LAB 11:24
PROVIDERS: PCP Internal Medicine; Visit Provider Internal Medicine
DX: Z00.00 Encounter for general adult medical examination without abnormal findings (principal); R56.9 Unspecified convulsions; R30.0 Dysuria
CPT/HCPCS: 36415; 80053; 80061; 81001; 85025

== ENCOUNTER 2024-02-26 15:21 | Outpatient (AMB) | payer MEDICARE, MEDICAID, SELFPAY ==
--- NOTE | 2024-02-26 15:33 | MHC.PC.OV ---
Vital Signs 02/26/24 15:34 Height 5 ft 2 in Weight 147 lb BMI 26.9 BP 118/78 Blood Pressure Location Lt brachial Position Sitting Intake Visit Reasons: depression, seizures Intake Note: Patient here for a follow up depression, seizures Executive Officer Required: No Accompanied by: Self / Same As Patient Allergies Penicillins Adverse Reaction (Intermediate, Verified 02/26/24 15:42) Nausea and Vomiting Medication List - Last Reconciled 02/26/24 by Beth Walter MD anastrozole (Arimidex) 1 mg PO DAILY bisacodyl (Dulcolax (bisacodyl)) 20 mg (4 x 5 mg) PO ONCE 1 day citalopram 40 mg PO BEDTIME 90 days hydrocortisone 2.5% (Anusol-HC) 1 appl MD BEDTIME PRN hydroxyzine pamoate 25 mg PO BID PRN 90 days ibuprofen 600 mg PO Q6H PRN levetiracetam (Keppra) 500 mg PO Q12H polyethylene glycol 3350 (Miralax) 238 grams PO ONCE 1 day Tobacco use date assessed: 08/24/23 Dental Screening Dental Screen Date: 08/24/23 HPI HPI Comments History of Present Illness Details This is a 58-year-old female with mild recurrent major depression, anxiety, seizures and history of ductal carcinoma of left breast that comes today complaining of tachycardia. This has been present for the last few weeks. She is stressed out and is going through a divorce. On escitalopram for depression with anxiety. On Keppra for seizures and has not had a seizure in over 6 months. On anastrozole for her left breast cancer follow by Hematology-Oncology. No chest pain or shortness on breath. EKG will be ordered. COUNT INCLUDES [facility] Medical History (Updated 02/26/24 @ 15:50 by Beth Walter MD) Cardiomyopathy Epidermal cyst DCIS (ductal carcinoma in situ) JOSI (generalized anxiety disorder) Mild recurrent major depression GERD (gastroesophageal reflux disease) Invasive ductal carcinoma of left breast Left breast mass Pelvic floor weakness Shortness of breath Daytime sleepiness Snoring Leg weakness Chronic fatigue Depression with anxiety Seizures Surgical History Hx of colonoscopy History of removal of cyst (~03/03/22) History of lumpectomy of left breast H/O abdominoplasty History of breast biopsy History of bilateral breast implants History of tubal ligation Family History Father CVD (cardiovascular disease) Mother Hypertension Daughter No problems noted. Family/Other FH: mental illness Breast cancer Social History Household Members: Spouse, Significant Other and Children Housing: House Alcohol intake: current Alcohol intake frequency: holidays/special occasions only Alcohol type: wine Patient Tobacco Use Status: Current everyday Tobacco user Tobacco use type: Cigarette Cigarette Packs Per Day: 0.5 Cigarettes Per Day: 10 Years Smoked: 35 +/- Packs Per Year: 0 Packs per year/per ci.00 e-Cigarette/Vaping Use: Never Used Second Hand Smoke Exposure: No service: No Current occupational status: unemployed Cognitive needs: No Hearing needs: No Vision needs: Yes Female Reproductive History Menstrual Age of Menarche: 15 Questionnaire Thrive Questionnaire Date Thrive assessed: 08/24/23 Are you currently unemployed and looking for a job?: No JOSI-7 AMB Questionnaire JOSI-7 Date JOSI - 7 assessed: 08/24/23 Source: Developed by Drs. Wes Bryan, Nilsa Munoz, Jose Almazan and colleagues, with an educational bay from [employer]. Review of Systems Const All systems reviewed & are unremarkable except as noted in HPI and below Card Denies chest pain at rest, Denies chest pain with activity, Denies edema, Denies irregular heart rhythm, Denies claudication, Denies dyspnea, Denies dyspnea on exertion, Denies orthopnea, Denies paroxysmal nocturnal dyspnea and Denies slow heart rate Resp Denies cough, Denies dyspnea and Denies dyspnea on exertion GI Denies abdominal pain, Denies change in bowel habits, Denies excessive flatus, Denies nausea and Denies vomiting Physical exam (Primary Care) Vital Signs: Last Vital Signs BP 118/78 02/26/24 15:34 BMI result Body Mass Index 26.9 Tobacco/Smoking Status: Tobacco use Status Tobacco use date assessed 08/24/23 02/26/24 15:38 Patient Tobacco Use Status Current everyday Tobacco 02/26/24 15:38 Tobacco use type Cigarette 02/26/24 15:38 e-Cigarette/Vaping Use Never Used 02/26/24 15:38 Are you ready to quit: No Tobacco cessation counseling provided: Yes Items discussed: Nicotine replacement and QuitWorks Relapse Prevention: discussed the importance of a supportive environment, discussed extending NRT, discussed negative mood or depression after quitting, weight gain after smoking is common and discussed dietary, exercise and/or lifestyle changes Number of minutes spent counselin CPT code: 39196 - 4-10 Minutes Thrive Assessment: Date of Thrive Assessment Date Thrive assessed 08/24/23 02/26/24 15:38 HENMT Head: Yes normal to inspection, Yes normocephalic and Yes atraumatic Ears: external ears normal Eyes General: appearance normal, both eyes and all related structures Eyelids: Yes eyelids normal Conjunctivae: conjunctivae normal Neck Neck: Yes normal visual inspection and Yes supple Resp Effort & Inspection: normal respiratory effort Auscultation: clear to auscultation bilaterally Cardio Jugular venous distension: no JVD Rate: regular rate Rhythm: regular rhythm Heart sounds: S1 normal heart sound present and S2 normal heart sound present GI Inspection: Yes normal to inspection Palpation (GI): Soft to palpation and nontender Auscultation: normal bowel sounds Skin General skin exam: no rashes or lesions noted Neuro General: no focal motor deficits Extrem General: Yes full ROM Psych Appearance: grossly normal Assessment and Plan Assessment & Plan (1) Mild recurrent major depression: Code(s): F33.0 - Major depressive disorder, recurrent, mild Plan: Continue escitalopram. (2) JOSI (generalized anxiety disorder): Code(s): F41.1 - Generalized anxiety disorder Plan: Continue escitalopram. (3) Invasive ductal carcinoma of left breast: Code(s): C50.912 - Malignant neoplasm of unspecified site of left female breast Plan: Continue anastrozole. (4) Seizures: Code(s): R56.9 - Unspecified convulsions Plan: Continue Keppra. (5) Tachycardia: Code(s): R00.0 - Tachycardia, unspecified Plan: EKG ordered. Orders: Orders ECG 12 lead EKG Today R00.0 - Tachycardia, unspecified Medications: Refilled hydrocortisone 2.5% (Anusol-HC) 1 appl MD BEDTIME PRN 30 grams 0RF Itching Coding Level of Care Code Est Pt Level 4 (38915) Complex EM visit Add On G2211 Diagnoses Mild recurrent major depression F33.0 JOSI (generalized anxiety disorder) F41.1 Invasive ductal carcinoma of left breast C50.912 Seizures R56.9 Tachycardia R00.0 Additional Codes Vital Signs *Quality* - CPT code: 51616 - 4-10 Minutes ([id number]) Time Spent (min) 24
[2024-02-26 15:34] VITALS: BP 118/78; BMI 26.9
== END 2024-02-26 15:50 | disposition home or self-care (01) ==
PROVIDERS: PCP Internal Medicine; Visit Provider Internal Medicine
DX: F33.0 Major depressive disorder, recurrent, mild (principal); F41.1 Generalized anxiety disorder; C50.912 Malignant neoplasm of unspecified site of left female breast; R56.9 Unspecified convulsions; R00.0 Tachycardia, unspecified

== ENCOUNTER → 2024-02-26 15:21 | Outpatient (BNVA) | payer MEDICARE, MEDICAID, SELFPAY | PROVIDERS: PCP Internal Medicine; Visit Provider Internal Medicine | DX: F33.0 Major depressive disorder, recurrent, mild (principal); F41.1 Generalized anxiety disorder; R56.9 Unspecified convulsions; R00.0 Tachycardia, unspecified; Z85.3 Personal history of malignant neoplasm of breast | CPT/HCPCS: 99212 ==

== ENCOUNTER → 2024-02-27 09:55 | Outpatient (REF) | payer MEDICARE, MEDICAID, SELFPAY ==
--- NOTE | 2024-02-27 09:59 | ECG_ITS ---
Test Reason : Tachycardia Blood Pressure : / mmHG Vent. Rate : 062 BPM Atrial Rate : 062 BPM P-R Int : 120 ms QRS Dur : 072 ms QT Int : 412 ms P-R-T Axes : 061 010 038 degrees QTc Int : 418 ms Normal sinus rhythm Nonspecific T wave abnormality Abnormal ECG When compared with ECG of 12-SEP-2022 14:35, No significant change was found Referred By: Beth Walter Electronically Signed By:CHEL COLBY
== END ==
LOC: HO.CARD 09:55
PROVIDERS: PCP Internal Medicine; Visit Provider Internal Medicine
DX: R00.0 Tachycardia, unspecified (principal)
CPT/HCPCS: 93005

== ENCOUNTER 2024-04-11 10:16 | Day surgery (SDC) | payer MEDICARE, MEDICAID, SELFPAY ==
[2024-04-08 16:44] VITALS: BMI 26.9
--- NOTE | 2024-04-10 09:27 | P.CONAN_ITS ---
Documented by User: Cata Harding NP 04/10/24 09:37 HPI - Anesthesia Eval Consult details Narrative: 58yo F for Upper Endoscopy and Colonoscopy PMFSH Active Problems Active Problems: All Active Problems Tachycardia (Acute) Hematuria (Acute) Physical exam (Acute) Bloating (Acute) Blurry vision (Acute) Tubular adenoma of colon (Acute) Palpitations (Acute) Epidermal cyst (Acute) Family history of breast cancer (Acute) DCIS (ductal carcinoma in situ) (Acute) JOSI (generalized anxiety disorder) (Acute) Mild recurrent major depression (Acute) GERD (gastroesophageal reflux disease) (Acute) Invasive ductal carcinoma of left breast (Chronic) H/O abdominoplasty (Acute) Left breast mass (Acute) Pelvic floor weakness (Acute) Shortness of breath (Acute) Daytime sleepiness (Acute) Snoring (Acute) Leg weakness (Acute) Chronic fatigue (Acute) Depression with anxiety (Acute) Seizures (Acute) Past Medical History Medical History Cardiomyopathy Epidermal cyst DCIS (ductal carcinoma in situ) JOSI (generalized anxiety disorder) Mild recurrent major depression GERD (gastroesophageal reflux disease) Invasive ductal carcinoma of left breast Left breast mass Pelvic floor weakness Shortness of breath Daytime sleepiness Snoring Leg weakness Chronic fatigue Depression with anxiety Seizures Family History Family History Father CVD (cardiovascular disease) Mother Hypertension Daughter No problems noted. Family/Other FH: mental illness Breast cancer Family history of problems with anesthesia: No Surgical History Surgical History Hx of colonoscopy History of removal of cyst (~03/03/22) History of lumpectomy of left breast H/O abdominoplasty History of breast biopsy History of bilateral breast implants History of tubal ligation History of Problems with Anesthesia: No Social History Social History Household Members: Spouse, Significant Other and Children Housing: House Alcohol intake: current Alcohol intake frequency: holidays/special occasions only Alcohol type: wine Patient Tobacco Use Status: Current everyday Tobacco user Tobacco use type: Cigarette Cigarette Packs Per Day: 0.5 Cigarettes Per Day: 10.0 Years Smoked: 35 +/- e-Cigarette/Vaping Use: Never Used Second Hand Smoke Exposure: No Use of substances other than those prescribed or required for medical reasons: No Have you been hit, kicked, punched, or otherwise hurt by someone within the past year? If so, by whom?: No Are you DNR?: No Advance Directives: No Advance Directives Information Provided: Yes Recently lost weight without trying: No service: No Current occupational status: unemployed Cognitive needs: No Hearing needs: No Vision needs: Yes Meds Allergies Allergy/AdvReac Type Severity Reaction Status Date / Time Penicillins AdvReac Intermediate Nausea and Verified 03/19/24 14:54 Vomiting Home Medications ?Medication ?Instructions ?Recorded ?Confirmed ?Last Taken ?Type levetiracetam 500 mg tablet 500 mg PO Q12H 07/02/20 03/19/24 04/09/21 08:30 History (Reyna) Exam Height,Weight and Vital Signs: Height 5 ft 2 in Weight 66.678 kg Pertinent Lab Results Pertinent Lab Results: Laboratory Tests 03/19/24 15:23 WBC 7.5 Hgb 14.1 Hct 42.5 Plt Count 306 Sodium 141 Potassium 4.2 Chloride 109 H Carbon Dioxide 26 BUN 14 Creatinine 0.78 Narrative Narrative: EKG 02/2024 Vent. Rate : 062 BPM Atrial Rate : 062 BPM P-R Int : 120 ms QRS Dur : 072 ms QT Int : 412 ms P-R-T Axes : 061 010 038 degrees QTc Int : 418 ms Normal sinus rhythm Nonspecific T wave abnormality Abnormal ECG When compared with ECG of 12-SEP-2022 14:35, No significant change was found ECHO 2022 Conclusions: - Normal left ventricular size, thickness, systolic function, and wall motion. The visually estimated ejection fraction is between 55-60%. Diastolic function is normal for age. - Normal right ventricular cavity size and systolic function. Exercise Stress 2022 Protocol: JARAD Max HR: 160 BPM 96% of Pred: 165 BPM Max BP: 136/072 mmHG Max Work Load: 7.8 METS Exercise stress test exercise 6 min 35 sec of Jarad protocol achieivng 96% MPHR, without anginal symptoms, without arrythmias, with normotensive response to exercise, without EKG changes. Test reviewed with Dr. Michel. Holter 2023 * Total monitoring time approximately 6 days. * Underlying rhythm is sinus. Average ventricular rate 81/Min. Range 46 to 160/Min. * About 14% of the time, rate > 100/Min. * Extremely rare supraventricular/ventricular ectopy with minimal burden. * No significant pauses or AV blocks. * No patient markers or events in diary. Assessment and Plan Assessment Anesthesia Assessment: Chart Reviewed Final Anesthetic Review Family History of Problems with Anesthesia: No History of Problems with Anesthesia: No Documented by User: Ana Mcmillan MD 04/11/24 12:49 [facility] Past Medical History Medical History Cardiomyopathy Epidermal cyst DCIS (ductal carcinoma in situ) JOSI (generalized anxiety disorder) Mild recurrent major depression GERD (gastroesophageal reflux disease) Invasive ductal carcinoma of left breast Left breast mass Pelvic floor weakness Shortness of breath Daytime sleepiness Snoring Leg weakness Chronic fatigue Depression with anxiety Seizures Family History Family History Father CVD (cardiovascular disease) Mother Hypertension Daughter No problems noted. Family/Other FH: mental illness Breast cancer Surgical History Surgical History Hx of colonoscopy History of removal of cyst (~03/03/22) History of lumpectomy of left breast H/O abdominoplasty History of breast biopsy History of bilateral breast implants History of tubal ligation Social History Social History Household Members: Spouse, Significant Other and Children Housing: House Alcohol intake: current Alcohol intake frequency: holidays/special occasions only Alcohol type: wine Patient Tobacco Use Status: Current everyday Tobacco user Tobacco use type: Cigarette Cigarette Packs Per Day: 0.5 Cigarettes Per Day: 10.0 Years Smoked: 35 +/- e-Cigarette/Vaping Use: Never Used Second Hand Smoke Exposure: No Use of substances other than those prescribed or required for medical reasons: No Have you been hit, kicked, punched, or otherwise hurt by someone within the past year? If so, by whom?: No Are you DNR?: No Advance Directives: No Advance Directives Information Provided: Yes Recently lost weight without trying: No service: No Current occupational status: unemployed Cognitive needs: No Hearing needs: No Vision needs: Yes Meds Allergies Allergy/AdvReac Type Severity Reaction Status Date / Time Penicillins AdvReac Intermediate Nausea and Verified 03/19/24 14:54 Vomiting Home Medications ?Medication ?Instructions ?Recorded ?Confirmed ?Last Taken ?Type levetiracetam 500 mg tablet 500 mg PO Q12H 07/02/20 03/19/24 04/09/21 08:30 History (Reyna) Exam Airway Mallampati Class: II TM Dist: >3cm Neck ROM: Full Heart: rrr Lungs: cta Assessment and Plan Assessment Anesthesia Assessment: Anesthesia Plan Discussed Final Anesthetic Review NPO: Yes ASA Class: III Final Preanesthetic Review: No Changes in Pt Med Stat, Meds/Allgs Chart Reviewed, Consent Obtained/Reviewed and Anes Risks/Benef Reviewed Patient Risk: Intermediate Procedure Risk: Low Anesthetic Plan Anesthetic Plan: MAC: Disposition: Standard PACU
[2024-04-11 10:28] VITALS: BP 111/72; PULSE 82; RESP 16; TEMP 36.7; O2SAT 97; BMI 27.2
[2024-04-11] MEDS: Lactated Ringers 1,000 ML 100 ML IVCONT (10:38)
--- NOTE | 2024-04-11 11:47 | MHC.SHP ---
Pre-Procedural Eval Section A - 24 Hr Update-Section A only Date of Service: 04/11/24 Section B - Complete if H&P > 30 days Chief Complaint: GERD, bloating, screening Details of Present Illness: pidermal cyst DCIS (ductal carcinoma in situ) JOSI (generalized anxiety disorder) Mild recurrent major depression GERD (gastroesophageal reflux disease) Invasive ductal carcinoma of left breast Left breast mass Pelvic floor weakness Shortness of breath Daytime sleepiness Snoring Leg weakness Chronic fatigue Depression with anxiety Seizures Surgical History (Updated 05/24/23 @ 11:07 by ALVIN Harris) Hx of colonoscopy History of removal of cyst (~03/03/22) History of lumpectomy of left breast H/O abdominoplasty History of breast biopsy History of bilateral breast implants History of tubal ligation Allergies: Allergies Allergy/AdvReac Type Severity Reaction Status Date / Time Penicillins AdvReac Intermediate Nausea and Verified 03/19/24 14:54 Vomiting Review of Systems Review of Systems Comment: Ten point ROS negative Exam Exam Comment: Gen appear: No acute distress HEENT: no icterus Chest: No overt resp distress Abd: soft, nontender, nondistended Psych: Stable affect, answering questions appropriately Neuro: A/Ox3 noted to move all extremities spontaneously Ext: no peripheral edema Plan Diagnosis/Plan: Unchanged I have reviewed the history and physical and performed a pertinent physical examination on my patient. No changes have occurred unless specified. Time Spent With Patient Time: Total time managing care of this patient today ____ minutes.
[2024-04-11 13:04] VITALS: BP 90/50; PULSE 100; RESP 16; TEMP 36.1; O2SAT 97
[2024-04-11 13:19] VITALS: BP 118/64; PULSE 86; RESP 18; TEMP 36.2; O2SAT 100
--- NOTE | 2024-04-11 13:39 | P.OPN-COLO_ITS ---
Colonoscopy Operative Note Operative Note Date of Service: 04/11/24 Narrative: Procedure: Upper endoscopy and colonoscopy Indication: GERD, bloating, screening Endoscopist: Denae Carr MD Anesthesia Provider: Teagan Rae CRNA Anesthesia type: MAC Instrument: [id number] and [id number] Colonoscopy Procedure:? The procedure, indications, preparation and potential complications were reviewed with the patient, who indicated understanding and gave written informed consent to proceed. A digital rectal exam was performed which was normal.? A di stal attachment cap was affixed to the tip of the scope and the colonoscope was then inserted through the anus and advanced through the colon and advanced to the cecum at 75 cm and terminal ileum.? Appendiceal orifice and ileocecal valve were identified. Mucosa was carefully examined under high definition white light as the instrument was slowly withdrawn in a retrograde panoramic fashion. Retroflexion was performed in rectum. The procedure was not difficult. The quality of the prep was BBPS: 2+2+3 = adequate Withdrawal time 9 minutes Limitations: No limitations Findings: Mucosa: Normal colon and terminal ileum mucosa. Protruding lesions: * 1 sessile polyp of size 2 mm was noted in the ascending colon. Cold forceps polypectomy was performed. Polyp was completely removed and retrieved. * Medium internal hemorrhoids without stigmata of recent bleeding EGD Procedure:?? The patient was then turned for the upper endoscopy. The endoscope was introduced through the mouth, and advanced to the 2nd part of the duodenum. The mucosa was carefully examined on slow withdrawal of the endoscope. The patient tolerated the procedure well. There were no immediate complications.? EGD Findings:? * Esophagus:? Normal esophageal mucosa was noted. The Z line was at 29 cm and regular. There was a semi-lunar non-obstructing Schatzki's ring at that level. There was a small hiatal hernia with the diaphragmatic hiatus at 32 cm. Cold forceps biopsies were taken from the lower esophagus. * Stomach: There was erythema and scant heme in the antrum. Retroflexion was performed in the cardia, that showed Hill grade III hiatal hernia. Cold forc eps biopsies were taken to r/o H Pylori. * Duodenum:? Erythema and erosions in the duodenal bulb. Cold forceps biopsies were taken from the duodenal bulb and 2nd portion of the duodenum to rule out celiac sprue. Impression: * Normal colon and terminal ileum mucosa * 1 polyp removed * Hemorrhoids * Non-obstructing Schatzki's ring * Hiatal hernia * Gastritis * Duodenitis (biopsy) Recommendations:?? * Follow-up path results * Avoid NSAIDs * Start omeprazole 20mg BID x 8 weeks and then once daily * Consider barium swallow for further evaluation of hiatal hernia if pt symptomatic * Repeat colonoscopy for symptomatic colorectal cancer screening in 7-10 years.
== END 2024-04-11 13:42 | disposition home or self-care (01) ==
PROVIDERS: PCP Internal Medicine; Visit Provider Internal Medicine
PROC: (CPT 45380; principal; 2024-04-11 12:20)
DX: Z12.11 Encounter for screening for malignant neoplasm of colon (principal); K22.2 Esophageal obstruction; K29.90 Gastroduodenitis, unspecified, without bleeding; K44.9 Diaphragmatic hernia without obstruction or gangrene; A04.8 Other specified bacterial intestinal infections; K21.9 Gastro-esophageal reflux disease without esophagitis; F17.210 Nicotine dependence, cigarettes, uncomplicated; Z86.0101 Personal history of adenomatous and serrated colon polyps
CPT/HCPCS: 45380; 43239; 88305; 88313; 88342; J1100; J1596; J2003; J2704

== ENCOUNTER → 2024-04-11 10:16 | Outpatient (BNV) | payer MEDICARE, MEDICAID, SELFPAY | PROVIDERS: PCP Internal Medicine; Visit Provider Internal Medicine | DX: Z12.11 Encounter for screening for malignant neoplasm of colon (principal); K63.5 Polyp of colon; K64.8 Other hemorrhoids; K29.80 Duodenitis without bleeding; K21.9 Gastro-esophageal reflux disease without esophagitis; K22.2 Esophageal obstruction; K29.70 Gastritis, unspecified, without bleeding | CPT/HCPCS: 43239; 45380 ==

== ENCOUNTER 2024-05-02 14:32 | Outpatient (REF) | payer MEDICARE, MEDICAID, SELFPAY ==
--- NOTE | ~2024-05-02 | MM_ITS ---
EXAMINATION: MM DIAGNOSTIC DIGITAL BREAST TOMOSYNTHESIS, BILATERAL CLINICAL INFORMATION: Year 3 follow-up for left breast DCIS status post lumpectomy 04/09/2021. Due for yearly. COMPARISON: Mammography: 03/07/2023, 03/07/2022, 01/25/2021, 09/10/2020, 09/04/2020, 08/11/2020, 08/06/2019, TECHNIQUE: Digital mammography is performed in craniocaudal and mediolateral oblique views. Digital breast tomosynthesis is performed in implant-displaced craniocaudal and implant-displaced mediolateral oblique views. Synthesized 2D images are generated from the tomosynthesis. Computer-aided detection (CAD) is performed for this exam. In addition, 2-D spot magnification CC and ML views were also obtained of the left breast. FINDINGS: There are scattered areas of fibroglandular density (ACR BI-RADS breast composition Category b). The implant contours are unremarkable. No evidence of complication. Postoperative scarring in the left breast upper outer quadrant, appearing stable. Post benign biopsy clips noted in both breasts quadrants. The overall parenchymal pattern in both breasts appears stable, with unchanged post treatment related findings of skin thickening and trabecular thickening of the left breast No new suspicious masses, recurrent or suspicious grouped calcifications, or developing areas of architectural distortion. MM/MM tomosynthesis diag imp BI IMPRESSION: -There are no findings in either breast suspicious for malignancy. -There are stable benign findings as discussed. -Recommend the patient return to routine annual screening mammography. ASSESSMENT: BI-RADS BI-RADS 2 - Benign Findings RECOMMENDATION: 1 year F/U This patient's information was entered into a reminder system with a target due date for their next mammogram. Electronically signed by: Fritz Mcmahon MD 05/02/2024 03:31 PM [facility]
== END 2024-05-02 14:33 | disposition home or self-care (01) ==
LOC: HO.MAMMO 14:32
PROVIDERS: PCP Internal Medicine; Visit Provider Internal Medicine
DX: Z85.3 Personal history of malignant neoplasm of breast (principal); Z98.890 Other specified postprocedural states
CPT/HCPCS: 77062; 77066

== ENCOUNTER → 2024-05-02 15:00 | Outpatient (BNV) | payer MEDICARE, MEDICAID, SELFPAY | PROVIDERS: PCP Internal Medicine; Visit Provider Radiology Diagnostic Radiology | DX: R92.323 Mammographic fibroglandular density, bilateral breasts (principal); Z98.890 Other specified postprocedural states | CPT/HCPCS: 77066; G0279 ==

== ENCOUNTER 2024-05-03 09:53 | Outpatient (REF) | payer MEDICARE, MEDICAID, SELFPAY ==
[2024-05-06 21:32] LABS: Transglutaminase IgA <1.0 U/mL
== END 2024-05-03 09:54 | disposition home or self-care (01) ==
LOC: HO.LAB 09:53
PROVIDERS: PCP Internal Medicine; Visit Provider Nurse Practitioner Family
DX: R10.9 Unspecified abdominal pain (principal); K21.9 Gastro-esophageal reflux disease without esophagitis; K29.90 Gastroduodenitis, unspecified, without bleeding; R10.13 Epigastric pain; R13.10 Dysphagia, unspecified
CPT/HCPCS: 36415; 82785; 86003; 86364; 99212

== ENCOUNTER 2024-05-03 09:53 | Outpatient (AMB) | payer MEDICARE, MEDICAID, SELFPAY ==
[2024-05-03 09:56] VITALS: BP 110/62; PULSE 74; O2SAT 98; BMI 27.1
--- NOTE | 2024-05-03 09:56 | A.OFFVIS_ITS ---
Vital Signs 05/03/24 09:56 Height 5 ft 2 in Weight 148 lb 2.41 oz BMI 27.1 BP 110/62 Blood Pressure Location Rt brachial Position Sitting Pulse 74 Pulse Source Pulse Oximeter Pulse Oximetry (%) 98 Oxygen Delivery Method Room Air Intake Visit Reasons: EGD/La pt Intake Note: Relevant Flags or Indicators ? Requires Coal Chemist? Ofe Sánchez presents in office today for a scheduled s/p FUV. Pt used to see JM. CC; No recent labs, diagnostics, or med orders placed. ? Relevant GI Sx as reported per pt? None ? Hx of any recent surgeries? Double w/ Dr. Carr. Coal Chemist Required: No Coal Chemist Services: Coal Chemist Offered & Declined Allergies Penicillins Adverse Reaction (Intermediate, Verified 05/03/24 09:56) Nausea and Vomiting HPI HPI EGD/La pt: Details: UPPER ENDOSCOPY AND COLONOSCOPY Findings: Mucosa: Normal colon and terminal ileum mucosa. Protruding lesions: * 1 sessile polyp of size 2 mm was noted in the ascending colon. Cold forceps polypectomy was performed. Polyp was completely removed and retrieved. * Medium internal hemorrhoids without stigmata of recent bleeding EGD Procedure:?? The patient was then turned for the upper endoscopy. The endoscope was introduced through the mouth, and advanced to the 2nd part of the duodenum. The mucosa was carefully examined on slow withdrawal of the endoscope. The patient tolerated the procedure well. There were no immediate complications.? EGD Findings:? * Esophagus:? Normal esophageal mucosa was noted. The Z line was at 29 cm and regular. There was a semi-lunar non-obstructing Schatzki's ring at that level. There was a small hiatal hernia with the diaphragmatic hiatus at 32 cm. Cold forceps biopsies were taken from the lower esophagus. * Stomach: There was erythema and scant heme in the antrum. Retroflexion was performed in the cardia, that showed Hill grade III hiatal hernia. Cold forceps biopsies were taken to r/o H Pylori. * Duodenum:? Erythema and erosions in the duodenal bulb. Cold forceps biopsies were taken from the duodenal bulb and 2nd portion of the duodenum to rule out celiac sprue. Impression: * Normal colon and terminal ileum mucosa * 1 polyp removed * Hemorrhoids * Non-obstructing Schatzki's ring * Hiatal hernia * Gastritis * Duodenitis (biopsy) Recommendations:?? * Follow-up path results * Avoid NSAIDs * Start omeprazole 20mg BID x 8 weeks and then once daily * Consider barium swallow for further evaluation of hiatal hernia if pt symptomatic * Repeat colonoscopy for symptomatic colorectal cancer screening in 7-10 years. PATHOLOGY RESULTS Addendum #1 Additional H&E levels and AB/PAS on B show evidence of chronic injury consistent with chronic duodenitis. Immunostain for H. pylori on C is positive. Additional level with AB/PAS on D has no tissue for evaluation. Controls stain appropriately. Electronically Signed By: Aleena Eckert 04/15/24 2729 Diagnosis A. Colon, ascending, polyp: Consistent with hyperplastic polyp. B. Duodenum, biopsy: Duodenal mucosa with Jose's gland hyperplasia (see comment). C. Stomach, random, biopsy: Gastric antral and body mucosa with minimal chronic inactive gastritis; negative for intestinal metaplasia and dysplasia. D. Esophagus, lower, biopsy: Squamous mucosa with spongiosis and many intraepithelial eosinophils (focally up to 40 per high-power field), and rare detached columnar epithelium present; no intestinal metaplasia seen on initial levels; negative for dysplasia (see comment). Comment: (B): Additional levels and AB/PAS stain pending; addendum to follow (C): Immunostain for H. pylori pending; addendum to follow. (D): These findings may be seen in reflux or eosinophilic esophagitis and clinical correlation is necessary. Additional level with AB/PAS stain pending; addendum to follow. TODAY'S VISIT Patient is here today for follow-up and to discuss upper endoscopy and co lonoscopy results. Patient denies any ill effects from the prep, anesthesia or procedure itself. Patient was found to have esophagitis and duodenitis, PPI was increased to twice a day. Patient reports that she has been feeling well since starting the PPI. Denies any epigastric pain postprandially. Denies any acid reflux. Denies any dyspepsia, dysphagia or odynophagia. Patient denies any tennille kennedi, hematochezia. Reports that she is moving her bowels well without any issues. Occasional postprandial abdominal bloating. High eosinophilic count was found on biopsy in her esophagus. Patient is not aware if she has any food or any other allergies. Patient does not have asthma, not on any corticosteroid [facility] Medical History Cardiomyopathy Epidermal cyst DCIS (ductal carcinoma in situ) JOSI (generalized anxiety disorder) Mild recurrent major depression GERD (gastroesophageal reflux disease) Invasive ductal carcinoma of left breast Left breast mass Pelvic floor weakness Shortness of breath Daytime sleepiness Snoring Leg weakness Chronic fatigue Depression with anxiety Seizures Surgical History Hx of colonoscopy History of removal of cyst (~03/03/22) History of lumpectomy of left breast H/O abdominoplasty History of breast biopsy History of bilateral breast implants History of tubal ligation Family History Father CVD (cardiovascular disease) Mother Hypertension Daughter No problems noted. Family/Other FH: mental illness Breast cancer Social History Household Members: Spouse, Significant Other and Children Housing: House Alcohol intake: current Alcohol intake frequency: holidays/special occasions only Alcohol type: wine Patient Tobacco Use Status: Current everyday Tobacco user Tobacco use type: Cigarette Cigarette Packs Per Day: 0.5 Cigarettes Per Day: 10.0 Years Smoked: 35 +/- e-Cigarette/Vaping Use: Never Used Second Hand Smoke Exposure: No service: No Current occupational status: unemployed Cognitive needs: No Hearing needs: No Vision needs: Yes Female Reproductive History Menstrual Age of Menarche: 15 Review of Systems Const Denies weight gain and Denies weight loss ENT Reports no additional complaints, Denies dysphagia and Denies odynophagia Card Reports no additional complaints Resp Reports no additional complaints GI Denies abdominal pain, Denies belching, Denies melena, Denies bloating, Denies change in bowel habits, Denies dysphagia, Denies excessive flatus, Denies dyspepsia, Denies heartburn, Denies diarrhea, Denies loose stools, Denies nausea, Denies odynophagia and Denies vomiting Musc Reports no additional complaints Neuro Reports no additional complaints Psych Reports no additional complaints Endo Reports no additional complaints Physical Exam Vital Signs: Last Vital Signs Pulse 74 05/03/24 09:56 BP 110/62 05/03/24 09:56 Pulse Ox 98 05/03/24 09:56 Oxygen Delivery Method Room Air 05/03/24 09:56 BMI result Body Mass Index 27.1 Const General: healthy appearing, no acute distress and well developed Nutritional Appearance: well nourished Orientation/consciousness: patient oriented x3 Resp Effort & Inspection: normal respiratory effort, able to speak in complete sentences, no tracheal deviation and symmetric chest movement Auscultation: clear to auscultation bilaterally Cardio Rate: regular rate GI Inspection: Yes normal to inspection and No distended Palpation (GI): Soft to palpation, not firm, nontender and No hepatosplenomegaly present Auscultation: normal bowel sounds General: Yes no CVA tenderness Back/Spine/Pelvis Back: no CVA tenderness Skin General skin exam: elasticity normal, turgor normal and dry skin Neuro General: patient oriented x3 Psych Appearance: grossly normal Mental Status: mental status grossly normal Assessment & Plan Assessment & Plan (1) Gastritis and duodenitis: Code(s): K29.90 - Gastroduodenitis, unspecified, without bleeding Category: Medical (2) GERD (gastroesophageal reflux disease): Code(s): K21.9 - Gastro-esophageal reflux disease without esophagitis Category: Medical Qualifiers: Esophagitis presence: esophagitis presence not specified Qualified Code(s): K21.9 - Gastro-esophageal reflux disease without esophagitis Plan Continue current dose of PPI. Avoid dietary triggers and late night snacking. Staying upright for minimum 3 hours after meals discussed with patient. Eosinophilic esophagitis found on endoscopy. Patient will be sent for RAST allergen testing. Patient denies any allergies to food or any environmental our this. No history of asthma. Not on any corticosteroids. Will also check for celiac. Patient does admit to have occasional epigastric pain. Patient will return in 3 months to re-evaluate and to discuss results. She is agreeable to current plan of care and verbalizes understanding of instructions. She was given the opportunity to ask questions and all questions answered. Thank you for allowing me to participate in her care Orders: Orders Rast Allergen Today K21.9 - Gastro-esophageal reflux disease without esophagitis Transglutaminase IgA Today R10.9 - Unspecified abdominal pain Coding Level of Care Code Est Pt Level 3 (20215) Diagnoses Gastritis and duodenitis K29.90 Gastroesophageal reflux disease, unspecified whether esophagitis present K21.9 Esophagitis presence: esophagitis presence not specified Time Spent (min) 30 Comment 20 minutes spent with patient and additional 10 minutes spent reviewing her records
== END 2024-05-03 10:49 | disposition home or self-care (01) ==
PROVIDERS: PCP Internal Medicine; Visit Provider Nurse Practitioner Family
DX: K29.90 Gastroduodenitis, unspecified, without bleeding (principal); K21.9 Gastro-esophageal reflux disease without esophagitis
CPT/HCPCS: 99213

== ENCOUNTER 2024-07-26 10:07 | Outpatient (REF) | payer MEDICARE, MEDICAID, SELFPAY ==
[2024-07-28 16:22] LABS: H Pylori Breath Test Negative (Negative)
== END 2024-07-26 10:08 | disposition home or self-care (01) ==
LOC: HO.LNP 10:07
PROVIDERS: PCP Internal Medicine; Visit Provider Nurse Practitioner Family
DX: K21.9 Gastro-esophageal reflux disease without esophagitis (principal); K29.90 Gastroduodenitis, unspecified, without bleeding
CPT/HCPCS: 83013; 99212

== ENCOUNTER 2024-07-26 10:07 | Outpatient (AMB) | payer MEDICARE, MEDICAID, SELFPAY ==
--- NOTE | 2024-07-26 10:15 | A.OFFVIS_ITS ---
Vital Signs 07/26/24 10:16 Height 5 ft 2 in Weight 149 lb 14.629 oz BMI 27.4 BP 108/66 Blood Pressure Location Rt brachial Position Sitting Pulse 76 Pulse Source Pulse Oximeter Pulse Oximetry (%) 98 Oxygen Delivery Method Room Air Intake Visit Reasons: 3 month follow up Intake Note: ESTABLISHED PATIENT for Duodenitis, inactive gastritis, GERD, esophagitis mgmt. Chief Complaint; C/O worsening reflux. 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 Pt reports that their reflux is OK but not as well controlled without omeprazole. Denies any other GI concerns. Warehouse Logistics Manager Required: No Accompanied by: Self / Same As Patient Allergies Penicillins Adverse Reaction (Intermediate, Verified 07/26/24 10:16) Nausea and Vomiting HPI HPI 3 month follow up: Details: LAST VISIT Gastritis and duodenitis GERD (gastroesophageal reflux disease) Plan Continue current dose of PPI. Avoid dietary triggers and late night snacking. Staying upright for minimum 3 hours after meals discussed with patient. Eosinophilic esophagitis found on endoscopy. Patient will be sent for RAST allergen testing. Patient denies any allergies to food or any environmental our this. No history of asthma. Not on any corticosteroids. Will also check for celiac. Patient does admit to have occasional epigastric pain. Patient will return in 3 months to re-evaluate and to discuss results. She is agreeable to current plan of care and verbalizes understanding of instructions. She was given the opportunity to ask questions and all questions answered. ? Thank you for allowing me to participate in her care Orders Orders Rast Allergen Today K21.9 Transglutaminase IgA Today R10.9 * TODAY'S VISIT Patient is here today for follow-up. Patient reports that she has been having epigastric pain and bloating depending on what she eats. She is not complaining of acid reflux only if she eats something spicy. Patient states that she is trying to avoid dietary triggers. Patient admits that she stopped taking omeprazole about 3 weeks ago or so. Patient was given antibiotics for H pylori found on upper endoscopy, however she admits that she only took about 1/3 the treatment as she was having severe symptoms, nausea and vomiting. Patient denies melena, hematochezia. Reports to have good appetite. [facility] Medical History Cardiomyopathy Epidermal cyst DCIS (ductal carcinoma in situ) JOSI (generalized anxiety disorder) Mild recurrent major depression GERD (gastroesophageal reflux disease) Invasive ductal carcinoma of left breast Left breast mass Pelvic floor weakness Shortness of breath Daytime sleepiness Snoring Leg weakness Chronic fatigue Depression with anxiety Seizures Surgical History Hx of colonoscopy History of removal of cyst (~03/03/22) History of lumpectomy of left breast H/O abdominoplasty History of breast biopsy History of bilateral breast implants History of tubal ligation Family History Father CVD (cardiovascular disease) Mother Hypertension Daughter No problems noted. Family/Other FH: mental illness Breast cancer Social History Household Members: Spouse, Significant Other and Children Housing: House Alcohol intake: current Alcohol intake frequency: holidays/special occasions only Alcohol type: wine Patient Tobacco Use Status: Current everyday Tobacco user Tobacco use type: Cigarette Cigarette Packs Per Day: 0.5 Cigarettes Per Day: 10.0 Years Smoked: 35 +/- e-Cigarette/Vaping Use: Never Used Second Hand Smoke Exposure: No service: No Current occupational status: unemployed Cognitive needs: No Hearing needs: No Vision needs: Yes Female Reproductive History Menstrual Age of Menarche: 15 Review of Systems Const Denies weight gain and Denies weight loss ENT Reports no additional complaints, Denies dysphagia and Denies odynophagia Card Reports no additional complaints Resp Reports no additional complaints GI Denies abdominal pain, Denies belching, Denies melena, Reports bloating, Denies change in bowel habits, Denies dysphagia, Denies excessive flatus, Reports early satiety (With certain food), Denies dyspepsia, Denies heartburn, Denies diarrhea, Denies loose stools, Denies nausea, Denies odynophagia and Denies vomiting Reports no additional complaints Musc Reports no additional complaints Neuro Reports no additional complaints Psych Reports no additional complaints Endo Reports no additional complaints Physical Exam Vital Signs: Last Vital Signs Pulse 76 07/26/24 10:16 BP 108/66 07/26/24 10:16 Pulse Ox 98 07/26/24 10:16 Oxygen Delivery Method Room Air 07/26/24 10:16 BMI result Body Mass Index 27.4 Const General: healthy appearing, no acute distress and well developed Nutritional Appearance: well nourished Orientation/consciousness: patient oriented x3 Resp Effort & Inspection: normal respiratory effort, able to speak in complete sentences, no tracheal deviation and symmetric chest movement Auscultation: clear to auscultation bilaterally Cardio Rate: regular rate GI Inspection: Yes normal to inspection and No distended Palpation (GI): Soft to palpation, not firm, nontender and No hepatosplenomegaly present Auscultation: normal bowel sounds General: Yes no CVA tenderness Back/Spine/Pelvis Back: no CVA tenderness Skin General skin exam: elasticity normal, turgor normal and dry skin Neuro General: patient oriented x3 Psych Appearance: grossly normal Mental Status: mental status grossly normal Assessment & Plan Assessment & Plan (1) Gastritis and duodenitis: Code(s): K29.90 - Gastroduodenitis, unspecified, without bleeding Category: Medical (2) GERD (gastroesophageal reflux disease): Code(s): K21.9 - Gastro-esophageal reflux disease without esophagitis Category: Medical Qualifiers: Esophagitis presence: esophagitis presence not specified Qualified Code(s): K21.9 - Gastro-esophageal reflux disease without esophagitis Plan Will do H pylori breath test. Patient will return to the office as right now she is chewing gum unable to do the test now. Patient will be back this afternoon to see nurse for testing. Patient stopped taking omeprazole and would rather not take it unless she really has to. Patient will avoid dietary triggers and late night snacking. Staying upright for minimum 3 hours after meals discussed with patient. If positive for H pylori we will try alternate treatment. However patient was made aware her important it is to take antibiotics. She will return in the office in 2-3 months, sooner on as needed basis. She is agreeable to this plan and verbalizes understanding of ins tructions. She was given the opportunity to ask questions and all questions answered. Thank you for allowing me to participate in her care Orders: Orders H Pylori Breath Test Today K21.9 - Gastro-esophageal reflux disease without esophagitis Coding Level of Care Code Est Pt Level 3 (43412) Diagnoses Gastritis and duodenitis K29.90 Gastroesophageal reflux disease, unspecified whether esophagitis present K21.9 Esophagitis presence: esophagitis presence not specified Time Spent (min) 30 Comment 20 minutes spent with patient and additional 10 minutes spent reviewing her records
[2024-07-26 10:16] VITALS: BP 108/66; PULSE 76; O2SAT 98; BMI 27.4
== END 2024-07-26 10:44 | disposition home or self-care (01) ==
PROVIDERS: PCP Internal Medicine; Visit Provider Nurse Practitioner Family
DX: K29.90 Gastroduodenitis, unspecified, without bleeding (principal); K21.9 Gastro-esophageal reflux disease without esophagitis
CPT/HCPCS: 99213

== ENCOUNTER 2024-08-06 13:29 | Outpatient (AMB) | payer MEDICARE, MEDICAID, SELFPAY ==
--- NOTE | 2024-08-06 13:33 | A.OFFVIS_ITS ---
Vital Signs 08/06/24 13:34 Height 5 ft 2 in Weight 147 lb BMI 26.9 BP 100/60 Intake Visit Reasons: MANAGER CT annual exam/30mins/DO NOT RS Gear Straightener Required: No Manager Market Research: Manager Market Research Present (Charu) Allergies Penicillins Adverse Reaction (Intermediate, Verified 08/06/24 13:34) Nausea and Vomiting HPI Comments Details: She is a postmenopausal woman presenting for her annual certified dental assistant examination. She is doing well with certified dental assistant concerns: randy anal itching for your years, Rx from Oncology helps, but does not resolve the issue. Currently not sexually active. Denies any vaginal dryness or irritation. STI testing offered; she declines. Attempting to eat a healthy diet with calcium and vitamin D and stays active with exercise. Last pap smear; 2022. Last mammogram; 2023. Colonoscopy is UTD. [facility] Medical History (Updated 08/06/24 @ 13:46 by Leslie Corona CNM) Cardiomyopathy Epidermal cyst DCIS (ductal carcinoma in situ) JOSI (generalized anxiety disorder) Mild recurrent major depression GERD (gastroesophageal reflux disease) Invasive ductal carcinoma of left breast Left breast mass Pelvic floor weakness Shortness of breath Daytime sleepiness Snoring Leg weakness Chronic fatigue Depression with anxiety Seizures Surgical History (Updated 08/06/24 @ 13:55 by Leslie Corona CNM) Hx of colonoscopy History of removal of cyst (~03/03/22) History of lumpectomy of left breast H/O abdominoplasty History of breast biopsy History of bilateral breast implants History of tubal ligation Family History Father CVD (cardiovascular disease) Mother Hypertension Daughter No problems noted. Family/Other FH: mental illness Breast cancer Social History Household Members: Spouse, Significant Other and Children Housing: House Alcohol intake: current Alcohol intake frequency: holidays/special occasions only Alcohol type: wine Patient Tobacco Use Status: Current everyday Tobacco user Tobacco use type: Cigarette Cigarette Packs Per Day: 0.5 Cigarettes Per Day: 10.0 Years Smoked: 35 +/- e-Cigarette/Vaping Use: Never Used Second Hand Smoke Exposure: No service: No Current occupational status: unemployed Cognitive needs: No Hearing needs: No Vision needs: Yes Female Reproductive History Menstrual Age of Menarche: 15 control method: permanent sterilization Permanent Sterilization: BTL Total pregnancies: 3 Full term: 3 Number of Living Children: 3 Date of last pap smear: 12/07/22 (neg pap and hpv) Date of Mammogram: 05/02/24 (Birad 2) Review of Systems Const All systems reviewed & are unremarkable except as noted in HPI and below Reports as per HPI Eyes Reports no additional complaints ENT Reports no additional complaints Card Reports no additional complaints Resp Reports no additional complaints GI Reports as per HPI and Reports no additional complaints Reports as per HPI Musc Reports no additional complaints Skin/Breast Reports as per HPI Neuro Reports no additional complaints Psych Reports no additional complaints Endo Reports no additional complaints Richard/Lymph Reports no additional complaints Aller/Immun Reports no additional complaints Physical Exam Vital Signs: Last Vital Signs BP 100/60 08/06/24 13:34 BMI result Body Mass Index 26.9 Const General: cooperative, healthy appearing, no acute distress, well developed and alert Orientation/consciousness: patient oriented x3 HEENT Head: Yes normal to inspection Eyes General: appearance normal, both eyes and all related structures Neck Neck: Yes normal visual inspection Thyroid: Thyroid normal Chest Other: Bilateral breast implants and surgical scarring Chest palpation & inspection: normal inspection of the chest and other (no puckering, dimpling, peau de orange, retraction, discharge, masses) Breast/axilla inspection: normal inspection of the breasts Breast/axilla palpation: normal palpation of the breasts Resp Effort & Inspection: normal respiratory effort GI Inspection: Yes normal to inspection and Yes scar Palpation (GI): Soft to palpation Rectal Exam - Female: deferred General: Yes bladder normal to palpation External Female Exam: normal external appearance and normal appearance of the urethra Speculum Exam - Vagina: normal appearance of the vagina, normal palpation and normal vaginal discharge Speculum Exam - Cervix: normal appearance of the cervix and normal palpation Bimanual exam- vagina & uterus: normal bimanual exam, normal palpation, uterine size normal, bladder normal to palpation, normal palpation and non-tender Bimanual Exam- Adnexa, other: no masses OB/external & speculum: other (Perianal fissure noted on left side at 05:00 o'clock) Skin General skin exam: no rashes or lesions noted Rashes: no rashes Neuro General: patient oriented x3 Cognition (Neuro): normal cognition Extrem General: Yes normal to inspection Psych Attitude: cooperative Thought process: Normal thought process present Assessment & Plan Assessment & Plan (1) Encounter for well woman exam with routine gynecological exam: Code(s): Z01.419 - Encounter for gynecological examination (general) (routine) without abnormal findings Category: Medical (2) Perianal fissure: Code(s): K60.2 - Anal fissure, unspecified Plan: Discussed perineal care, avoidance scented products, gentle wiping, exposure to chemicals, use of cotton underwear, follow up with primary care or oncology for further assessment plan of care. Total time I personally spent on visit and management today: ?5 minutes. Time spent included review of pertinent office notes in the electronic health record; review of laboratory and imaging results; review of personal family medical history; performing physical exam; discussing diagnosis and plan of care with the patient; documenting the encounter in the EMR. Plan Discussed: Current recommendations for pap smears per ASCCP guidelines. Breast awareness, periodic self breast exams and yearly mammogram. Maintain a healthy lifestyle, well balanced diet including Calcium 1,200 mg and Vitamin D 600 IU daily, and routine exercise. Contact the office with any postmenopausal bleeding. Patient verbalizes understanding and agrees to the plan of care. She was given opportunity to ask questions and all questions were answered to the best of my ability. RTO in 1 year for annual certified dental assistant exam. This note is constructed using voice recognition software. While every effort has been made to ensure accuracy, horse exerciser errors may have been included. Coding Level of Care Code Est Pt Level 2 (81701) Est Pt Prev Care 40-64y(83091) Diagnoses Encounter for well woman exam with routine gynecological exam Z01.419 Perianal fissure K60.2
[2024-08-06 13:34] VITALS: BP 100/60; BMI 26.9
== END 2024-08-06 14:24 | disposition home or self-care (01) ==
LOC: HO.HWS 13:29
PROVIDERS: PCP Internal Medicine; Visit Provider Advanced Practice Midwife
DX: Z01.419 Encounter for gynecological examination (general) (routine) without abnormal findings (principal); K60.2 Anal fissure, unspecified
CPT/HCPCS: 99212; G0101

== ENCOUNTER → 2024-08-06 13:29 | Outpatient (BNVA) | payer MEDICARE, MEDICAID, SELFPAY | PROVIDERS: PCP Internal Medicine; Visit Provider Advanced Practice Midwife | DX: Z01.419 Encounter for gynecological examination (general) (routine) without abnormal findings (principal); K60.2 Anal fissure, unspecified | CPT/HCPCS: 99212; G0101 ==

== ENCOUNTER 2024-08-26 12:48 | Outpatient (AMB) | payer MEDICARE, MEDICAID, SELFPAY ==
--- NOTE | 2024-08-26 12:53 | MHC.PC.OV ---
Intake Visit Reasons: AWV G0438 Allergies Penicillins Adverse Reaction (Intermediate, Verified 08/06/24 13:34) Nausea and Vomiting Tobacco use date assessed: 08/24/23 Dental Screening Dental Screen Date: 08/24/23 [facility] Medical History (Updated 08/06/24 @ 13:46 by Leslie Corona CNM) Cardiomyopathy Epidermal cyst DCIS (ductal carcinoma in situ) JOSI (generalized anxiety disorder) Mild recurrent major depression GERD (gastroesophageal reflux disease) Invasive ductal carcinoma of left breast Left breast mass Pelvic floor weakness Shortness of breath Daytime sleepiness Snoring Leg weakness Chronic fatigue Depression with anxiety Seizures Surgical History (Updated 08/06/24 @ 13:55 by Leslie Corona CNM) Hx of colonoscopy History of removal of cyst (~03/03/22) History of lumpectomy of left breast H/O abdominoplasty History of breast biopsy History of bilateral breast implants History of tubal ligation Family History Father CVD (cardiovascular disease) Mother Hypertension Daughter No problems noted. Family/Other FH: mental illness Breast cancer Social History Household Members: Spouse, Significant Other and Children Housing: House Alcohol intake: current Alcohol intake frequency: holidays/special occasions only Alcohol type: wine Patient Tobacco Use Status: Current everyday Tobacco user Tobacco use type: Cigarette Cigarette Packs Per Day: 0.5 Cigarettes Per Day: 10.0 Years Smoked: 35 +/- e-Cigarette/Vaping Use: Never Used Second Hand Smoke Exposure: No service: No Current occupational status: unemployed Cognitive needs: No Hearing needs: No Vision needs: Yes Female Reproductive History Menstrual Age of Menarche: 15 Questionnaire Thrive Questionnaire Date Thrive assessed: 08/24/23 JOSI-7 AMB Questionnaire JOSI-7 Date JOSI - 7 assessed: 08/24/23 Source: Developed by Drs. Wes Bryan, Nilsa Munoz, Jose Almazan and colleagues, with an educational bay from [employer]. Physical exam (Primary Care) Tobacco/Smoking Status: Tobacco use Status Tobacco use date assessed 08/24/23 02/26/24 15:38 Patient Tobacco Use Status Current everyday Tobacco 04/11/24 13:11 Tobacco use type Cigarette 02/26/24 15:38 e-Cigarette/Vaping Use Never Used 02/26/24 15:38 Thrive Assessment: Date of Thrive Assessment Date Thrive assessed 08/24/23 02/26/24 15:38 Coding
[2024-08-26 12:56] VITALS: BP 116/70; BMI 27.4
--- NOTE | 2024-08-26 12:56 | A.OFFVIS_ITS ---
Intake Vital Signs 08/26/24 12:56 Height 5 ft 2 in Weight 150 lb BMI 27.4 BP 116/70 Blood Pressure Location Lt brachial Position Sitting Intake Visit Reasons: AWV G0438 Intake Note: Patient here for an annual wellness visit Field Account Manager Required: Yes Field Account Manager Language: Route Sales Person Services: Field Account Manager Present Field Account Manager Name: Beth Walter MD Information Interpreted: non-clinical & clinical Accompanied by: Self / Same As Patient Allergies Penicillins Adverse Reaction (Intermediate, Verified 08/26/24 13:13) Nausea and Vomiting Medication List - Last Reconciled 08/26/24 by Beth Walter MD anastrozole (Arimidex) 1 mg PO DAILY bismuth subsalicylate 2 tabs PO QID 14 days citalopram 40 mg PO BEDTIME 90 days hydrocortisone 2.5% (Anusol-HC) 1 appl [place] BEDTIME PRN hydroxyzine pamoate 25 mg PO BID PRN 90 days levetiracetam (Keppra) 500 mg PO Q12H lorazepam 0.5 mg PO DAILY PRN HPI HPI Comments History of Present Illness Details The patient is a 59-year-old female presenting for a Medicare annual wellness exam. [place] of care reviewed. [facility] handed to patient. She has a history of Major Depressive Disorder treated with citalopram, noted with a PHQ-9 score of 18. The patient sees both a psychiatrist and psychologist regularly. Her report included periods of intense depressive episodes affecting daily function. Additionally, the patient is prescribed hydroxyzine for anxiety and Keppra for seizure disorder; she reports no recent seizures. She has a history of breast cancer managed surgically with a lumpectomy three ye ars prior. Arimidex is part of her ongoing management. Previous screenings include a colonoscopy last year and a Pap smear in 2022. Her family history is notable for her father's at age 75 and her mother's hypertension. Social history highlights include daily tobacco use and occasional wine consumption. The patient?s hypertension is acknowledged, with no specific treatment discussed. - Pap smear last performed in 2022 - Colonoscopy completed last year - Mammography reportedly completed in past year - Smoking cessation advised due to ongoi ng tobacco use - Attention to mental health management given current PHQ-9 score PFS Medical History (Updated 08/26/24 @ 13:30 by Beth Walter MD) Cardiomyopathy Epidermal cyst DCIS (ductal carcinoma in situ) JOSI (generalized anxiety disorder) Mild recurrent major depression GERD (gastroesophageal reflux disease) Invasive ductal carcinoma of left breast Left breast mass Pelvic floor weakness Shortness of breath Daytime sleepiness Snoring Leg weakness Chronic fatigue Depression with anxiety Seizures Surgical History Hx of colonoscopy History of removal of cyst (~03/03/22) History of lumpectomy of left breast H/O abdominoplasty History of breast biopsy History of bilateral breast implants History of tubal ligation Family History Father CVD (cardiovascular disease) Mother Hypertension Daughter No problems noted. Family/Other FH: mental illness Breast cancer Social History Household Members: Spouse, Significant Other and Children Housing: House Alcohol intake: current Alcohol intake frequency: holidays/special occasions only Alcohol type: wine Patient Tobacco Use Status: Current everyday Tobacco user Tobacco use type: Cigarette Cigarette Packs Per Day: 0.5 Cigarettes Per Day: 10.0 Years Smoked: 35 +/- e-Cigarette/Vaping Use: Never Used Second Hand Smoke Exposure: No service: No Current occupational status: unemployed Cognitive needs: No Hearing needs: No Vision needs: Yes Female Reproductive History Menstrual Age of Menarche: 15 Questionnaire Medicare Wellness Checkup What gender do you identify with?: female During the past 4 weeks, how much have you been bothered by emotional problems such as feeling anxious, depressed, irritable, sad or downhearted, and blue?: extremely During the past 4 weeks, has your physical & emotional health limited your social activities with family, friends, neighbors, or groups?: quite a bit During the past 4 weeks, how much bodily pain have you generally had?: mild pain During the past 4 weeks, was someone available to help you if you needed & wanted help?: yes, quite a bit During the past 4 weeks, what was the hardest physical activity you could do for at least 2 minutes?: moderate Can you get to places out of walking distance without help? (For eg., can you travel alone on buses, taxis or drive your car?): No Can you go shopping for groceries or clothes without someone's help?: No Can you prepare your own meals?: Yes Can you do your housework without help?: No Because of any health problems, do you need the help of another person with your personal care needs such as eating, bathing, dressing or getting around the ho use?: Yes Can you handle your own money without help?: No During the past 4 weeks, how would you rate your health in general?: fair During the past 4 weeks how have things been going for you?: pretty bad Are you having difficulties driving your car?: sometimes Do you always fasten your seat belt when you are in a car?: yes, usually During past 4 weeks, have you been bothered by the following: never: Trouble eating well? and Teeth or denture problems?, sometimes: Sexual problems?, often: Falling or dizzy when standing up and Problems using the telephone? and always: Tiredness or fatigue? Have you fallen 2 or more times in the past year?: No Are you afraid of falling?: Yes Are you a smoker?: yes, and I might quit During the past 4 weeks, how many drinks of wine, beer, or other alcoholic beverages did you have?: no alcohol at all Do you exercise for about 20 minutes 3 or more times a week?: no, I usually do not exercise this much Have you been given information to help with the following?: no: Hazards in your house that might hurt you? and no: Keeping track of your medications? How often do you have trouble taking medicines the way you have been told to take them?: I always take medicine as prescribed How confident are you that you can control & manage most of your health problems?: somewhat confident What is your race?: or origin or descent Mini Mental State Exam (MMSE) Orientation What is the (year) (season) (date) (day) (month)?: year, season, date, day and month Where are we (state) (county) (town or city) (hospital) (floor)?: state, county, town or city, hospital/clinic and floor Registration Name of 3 unrelated objects clearly and slowly, then ask patient to repeat all 3 of them. (1st repeat determines score. Make sure they can repeat all three): object 1, object 2 and object 3 Attention & Calculation (CHOOSE ONE) Spell WORLD backwards (DLROW): 3 letters Recall Ask patient to repeat the 3 items from question #3.: object 1, object 2 and object 3 Language Show patient a wristwatch & ask what it is. Repeat for pencil.: watch and pencil Ask the patient to repeat the phrase 'No ifs, ands, or buts' after you.: correct Ask the patient to 'take a piece of paper with their right hand' 'fold paper in half' 'place paper on floor': take paper in right hand, fold paper in half and place paper on floor Print the sentence 'CLOSE YOUR EYES' on a piece. If patient actually closes eyes then score.: followed written direction Give patient a blank piece of paper & ask to write a sentence. Score if it contains a noun & verb.: sentence contains subject and verb Score Score: 27 Activity of Daily Living Bathing - sponge bath, tub bath or shower: receives no assistance (gets in/out by self, if usual bathing means Dressing - getting clothes from closets & drawers, including inner/outer garments & fasteners.: gets clothes & gets completely dressed without help Toileting - going to the 'toilet room' for urine/bowel elimination & cleaning self/arranging clothes: goes to toilet room, cleans self, arranges clothes without help Transfer: moves in & out of bed and chair without help (may use support object) Continence: has occasional 'accidents' Feeding: feeds self without help Total Score: 0 Information obtained from: patient Using telephone: independent Traveling: needs assistance Shopping: needs assistance Preparing meals: independent Housework: independent Taking medicine: needs assistance Managing money: needs assistance PHQ-9 Over the last 2 weeks, how often have you been bothered by any of the following problems? 1. Little interest or pleasure in doing things: more than half the days 2. Feeling down, depressed, or hopeless: more than half the days 3. Trouble falling or staying asleep, or sleeping too much: more than half the days 4. Feeling tired or having little energy: more than half the days 5. Poor appetite or overeating: more than half the days 6. Feeling bad about yourself - or that you are a failure or have let yourself or your family down: nearly every day 7. Trouble concentrating on things, such as reading the newspaper or watching television: more than half the days 8. Moving or speaking so slowly that other people could have noticed. Or the opposite - being so fidgety or restless that you have been moving around a lot more than usual: more than half the days 9. Thoughts that you would be better off or of hurting yourself in some way: several days Total score: 18 Depression Screening Interpretation: Positive (no suicidal thoughts) Depression Screening Follow-up: Existing condition, In treatment, Community Mental Health Worker F/U and Follow-up Visit Requested Depression Screening Done: Yes 04301 - PHQ-9 Billing: Yes Source: Developed by Drs. Wes Bryan, Nilsa Munoz, Jose Almazan and colleagues, with an educational bay from [employer]. AUDIT C Alcohol Use Questionnaire (AUDIT-C) 1. How often do you have a drink containing alcohol?: Never Total Score: 0 Score Reviewed/Action Taken: No JOSI-7 AMB Questionnaire JOSI-7 Date JOSI - 7 assessed: 08/26/24 Feeling nervous, anxious, or on edge: 2 = More than half the days Not being able to stop or control worryin = Not at all Worrying too much about different things: 2 = More than half the days Trouble relaxin = Several days Being so restless that it is hard to sit still: 0 = Not at all Becoming easily annoyed or irritable: 1 = Several days Feeling afraid as if something awful might happen: 1 = Several days Total JOSI-7 score (0-4 normal; 5-9 mild; 10-14 moderate; 15-21 severe): 7 Source: Developed by Drs. Wes Bryan, Nilsa Munoz, Jose Almazan and colleagues, with an educational bay from [employer]. JOSI-7 Assessment Billing JOSI-7 Assessment Tool: JOSI-7 Assessment 18610 Thrive Questionnaire Date Thrive assessed: 08/24/23 Review of Systems Const All systems reviewed & are unremarkable except as noted in HPI and below Card Denies chest pain at rest, Denies chest pain with activity, Denies edema, Denies irregular heart rhythm, Denies claudication, Denies dyspnea, Denies dyspnea on exertion, Denies orthopnea, Denies paroxysmal nocturnal dyspnea and Denies slow heart rate Resp Denies cough, Denies dyspnea and Denies dyspnea on exertion Neuro Denies confusion Psych Denies confusion and Reports depression Physical Exam Vital Signs: Last Vital Signs BP 116/70 08/26/24 12:56 BMI result Body Mass Index 27.4 Const General: No confusion Orientation/consciousness: patient oriented x3 and No confusion Resp Effort & Inspection: normal respiratory effort Auscultation: clear to auscultation bilaterally Cardio Jugular venous distension: no JVD Rate: regular rate Rhythm: regular rhythm Heart sounds: S1 normal heart sound present and S2 normal heart sound present Neuro General: patient oriented x3, no focal motor deficits and No confusion Romberg Test: Negative Extrem General: Yes full ROM Assessment & Plan Assessment & Plan (1) Encounter for Medicare annual wellness exam: Code(s): Z00.00 - Encounter for general adult medical examination without abnormal findings (2) Invasive ductal carcinoma of left breast: Code(s): C50.912 - Malignant neoplasm of unspecified site of left female breast (3) Seizures: Code(s): R56.9 - Unspecified convulsions (4) Moderate recurrent major depression: Code(s): F33.1 - Major depressive disorder, recurrent, moderate Plan Ongoing management of Major Depressive Disorder with citalopram is recommended, with regular review of PHQ-9 scores to evaluate response. Hydroxyzine for Anxiety Disorder is to be continued. The patient's depression affects daily self-care, emphasizing the importance of her daughter?s support. Surveillance for breast cancer will continue with the patient remaining on Arimidex. Efforts should be made to encourage tobacco cessation. Keppra remains effective for seizure disorder management, with no recent episodes reported. Hypertension monitoring is advised, aided by lifestyle changes, particularly regarding smoking. Patient was informed and verbally consented to the use of an ambient scribe for clinic note documentation during this visit. Detailed discussions surrounded the management and continuation of citalopram for Major Depressive Disorder and hydroxyzine for Anxiety Disorder, with attention towards maintaining family support systems for improving adherence to treatment and addressing severe depressive episodes. Strategies and the importance of smoking cessation were emphasized owing to the patient?s tobacco use disorder, which impacts both mental and physical health. The necessity of continued surveillance following historical breast cancer and adherence to treatment with Arimidex was reviewed, alongside the management strategy for seizure disorder with Keppra. Additional counseling regarding the importance of lifestyle modifications in hypertension was provided. Patient Instructions: - Continue taking citalopram and hydroxyzine as directed. - Attend regular appointments with psychiatrist and psychologist. - Work on strategies to reduce and eventually cease tobacco use. - Follow up with regular cancer surveillance and mammography as advised. - Ensure consistent intake of Keppra for seizure management. - Engaging in lifestyle modifications for better hypertension control; involve family in daily activities when experiencing depressive episodes. Quality Reporting (2019) Depression/Bipolar (159/160/161/177) PHQ-9: Total score: 18 Coding Level of Care Code Medicare First (G0438) Diagnoses Encounter for Medicare annual wellness exam Z00.00 Invasive ductal carcinoma of left breast C50.912 Seizures R56.9 Moderate recurrent major depression F33.1 Additional Codes PHQ-9 - 74996 - PHQ-9 Billing: Yes ([id number]) JOSI-7 Assessment Billing - JOSI-7 Assessment Tool: JOSI-7 Assessment 01832 ([id number]) Time Spent (min) 35
== END 2024-08-26 13:32 | disposition home or self-care (01) ==
LOC: HO.HMCH 12:49
PROVIDERS: PCP Internal Medicine; Visit Provider Internal Medicine
DX: Z00.00 Encounter for general adult medical examination without abnormal findings (principal); C50.912 Malignant neoplasm of unspecified site of left female breast; R56.9 Unspecified convulsions; F33.1 Major depressive disorder, recurrent, moderate

== ENCOUNTER → 2024-08-26 12:48 | Outpatient (BNVA) | payer MEDICARE, MEDICAID, SELFPAY | PROVIDERS: PCP Internal Medicine; Visit Provider Internal Medicine | DX: Z00.00 Encounter for general adult medical examination without abnormal findings (principal); R56.9 Unspecified convulsions; F33.1 Major depressive disorder, recurrent, moderate; C50.912 Malignant neoplasm of unspecified site of left female breast | CPT/HCPCS: 96127 ==

== ENCOUNTER 2024-10-15 11:13 | Outpatient (REF) | payer MEDICARE, MEDICAID, SELFPAY ==
[2024-10-15 14:46] LABS: Anion Gap 10 (12-20)
[2024-10-15 14:54] LABS: Alanine Aminotransferase 14 U/L (0-31); Albumin Level 3.9 g/dL (3.5-5.0); Aspartate Amino Transferase 24 U/L (5-31); Bilirubin Total 0.3 mg/dL (0.0-1.0); Blood Urea Nitrogen 17 mg/dL (9-16); Carbon Dioxide 25 mmol/L (22-29); Chloride 108 mmol/L (96-108); Cholesterol 233 mg/dL (<200); Estimated Glomerular Filt Rate > 60; Glucose Fasting 88 mg/dL (60-99); HDL Cholesterol 52 mg/dL (>40); LDL Cholesterol Calculated 152 mg/dL (<100); Potassium 4.4 mmol/L (3.3-5.1); Sodium 139 mmol/L (135-145); Total Protein 6.4 g/dL (6.5-8.0); Triglycerides 148 mg/dL (<150)
[2024-10-15 18:19] LABS: Alkaline Phosphatase 77 U/L (39-117)
== END 2024-10-15 11:14 | disposition home or self-care (01) ==
LOC: HO.LAB 11:13
PROVIDERS: PCP Internal Medicine; Visit Provider Internal Medicine
DX: Z00.00 Encounter for general adult medical examination without abnormal findings (principal); E78.5 Hyperlipidemia, unspecified
CPT/HCPCS: 36415; 80053; 80061

== ENCOUNTER 2024-10-30 15:29 | Outpatient (AMB) | payer MEDICARE, MEDICAID, SELFPAY ==
--- NOTE | 2024-10-30 15:41 | AM.OFFWIN_ITS ---
Intake Vital Signs 10/30/24 15:42 Height 5 ft 2 in Weight 152 lb BMI 27.8 BP 100/66 Blood Pressure Location Lt brachial Position Sitting Pulse 58 Pulse Source Pulse Oximeter Temp 98.2 F Temp Source Oral Pulse Oximetry (%) 98 Oxygen Delivery Method Room Air Intake Visit Reasons: EP-cough, chest tight, body ache, headaches Intake Note: Patient here for cough, chest tightness, body aches and headaches that has been present for about 2 weeks. Patient Tobacco Use Status: Current everyday Tobacco user Patient Care Specialist Required: No Patient Care Specialist Name: Denied clearing house clerk Accompanied by: Daughter Allergies Penicillins Adverse Reaction (Intermediate, Verified 10/30/24 15:43) Nausea and Vomiting Do you need a note to return to daycare/school/sports/work: No HPI HPI Comments History of Present Illness Details [place] video clearing house clerk declined, her daughter Deny prefers to interpret. History - The patient is a 59-year-old female wi th a past medical history of cardiomyopathy, anxiety, gastroesophageal reflux disease, ductal carcinoma in situ of the left breast in remission, epilepsy, and chronic fatigue who is a current smoker presenting with respiratory symptoms including cough, chest pressure, and shortness of breath for two weeks, initially perceived as allergies. - Despite taking Zyrtec, the cough, ayanna acterized by yellow sputum, and chest tightness persist. - Additional symptoms include generalize d weakness and nausea but no vomiting or fevers. - The patient continues to smoke tobacco despite illness. - She has no history or diagnosis of ast hma or COPD. Physical Exam General: Cooperative, healthy appearing, comfortable and no acute distress Orientation/consciousness: Patient oriented x3 Limitations: No limitations Head: Normal to inspection Ears: Hearing grossly normal bilaterally, external ears normal and TM's normal bilaterally Nose: Normal external nose present, Normal nares present and No nasal discharge present Face and sinus: Normal facial exam and Yes sinuses nontender Mouth: Normal oral and palatal mucosa present and moist mucous membranes Throat: Yes tonsils normal, Yes uvula midline. Posterior oropharynx erythema and follow-up swelling Eyes: Appearance normal, both eyes and all related structures Neck: Normal visual inspection Respiratory: Clear to auscultation bilaterally. Normal respiratory effort, able to speak in complete sentences, Actively coughing, no respiratory distress, not tachypneic, no tripod positioning and no use of accessory muscles Cardiovascular: Regular rate and rhythm. Normal S1 and S2 Skin: No rashes or lesions noted Neuro: Patient oriented x3 Extremities: Normal to inspection and Yes no clubbing, cyanosis or edema PFSH Medical History (Updated 10/30/24 @ 16:16 by Katherine Ortiz PA-C) Cardiomyopathy Epidermal cyst DCIS (ductal carcinoma in situ) JOSI (generalized anxiety disorder) Mild recurrent major depression GERD (gastroesophageal reflux disease) Invasive ductal carcinoma of left breast Left breast mass Pelvic floor weakness Shortness of breath Daytime sleepiness Snoring Leg weakness Chronic fatigue Depression with anxiety Seizures Surgical History Hx of colonoscopy History of removal of cyst (~03/03/22) History of lumpectomy of left breast H/O abdominoplasty History of breast biopsy History of bilateral breast implants History of tubal ligation Family History Father CVD (cardiovascular disease) Mother Hypertension Daughter No problems noted. Family/Other FH: mental illness Breast cancer Social History Household Members: Spouse, Significant Other and Children Housing: House Alcohol intake: current Alcohol intake frequency: holidays/special occasions only Alcohol type: wine Patient Tobacco Use Status: Current everyday Tobacco user Tobacco use type: Cigarette Cigarette Packs Per Day: 0.5 Cigarettes Per Day: 10.0 Years Smoked: 35 +/- e-Cigarette/Vaping Use: Never Used Second Hand Smoke Exposure: No service: No Current occupational status: unemployed Cognitive needs: No Hearing needs: No Vision needs: Yes Female Reproductive History Menstrual Age of Menarche: 15 Review of Systems Const All systems reviewed & are unremarkable except as noted in HPI and below Physical Exam Vital Signs: Last Vital Signs Temp 98.2 F 10/30/24 15:42 Pulse 58 10/30/24 15:42 BP 100/66 10/30/24 15:42 Pulse Ox 98 10/30/24 15:42 Oxygen Delivery Method Room Air 10/30/24 15:42 BMI result Body Mass Index 27.8 Assessment & Plan Assessment & Plan (1) Lower respiratory infection (e.g., bronchitis, pneumonia, pneumonitis, pulmonitis): Code(s): J22 - Unspecified acute lower respiratory infection Plan: VSS, pt well appearing and PE unremarkable. I considered a bacterial component/CAP due to two weeks of respiratory symptoms including productive cough and chest discomfort. Doxycycline and cefpodoxime were prescribed to treat potential bacterial infection, acknowledging the patient's allergy to penicillin, and it will be taken twice daily for seven days. Additionally, Benadryl was suggested to provide supplementary antihistamine relief. The patient's condition will be monitored closely and any deterioration, particularly worsening respiratory symptoms, should prompt emergency evaluation. Continued tobacco use was noted as a potential risk factor, warranting caution and patient education provided accordingly. Patient was informed and verbally consented to the use of an ambient scribe for clinic note documentation during this visit. Medications: New doxycycline hyclate 100 mg PO BID 14 tabs 0RF cefpodoxime must administer with a meal/food 200 mg PO Q12H 14 tabs 0RF Coding Level of Care Code Est Pt Level 3 (89854) Diagnoses Lower respiratory infection (e.g., bronchitis, pneumonia, pneumonitis, pulmonitis) J22
[2024-10-30 15:42] VITALS: BP 100/66; PULSE 58; TEMP 36.8; O2SAT 98; BMI 27.8
== END 2024-10-30 16:25 | disposition home or self-care (01) ==
PROVIDERS: PCP Internal Medicine; Visit Provider Physician Assistant
DX: J22 Unspecified acute lower respiratory infection (principal)

== ENCOUNTER → 2024-10-30 15:29 | Outpatient (BNVA) | payer MEDICARE, MEDICAID, SELFPAY | PROVIDERS: PCP Internal Medicine; Visit Provider Physician Assistant | DX: J22 Unspecified acute lower respiratory infection (principal) | CPT/HCPCS: 99212 ==

== ENCOUNTER 2025-01-08 09:47 | Outpatient (AMB) | payer MEDICARE, MEDICAID, SELFPAY ==
--- NOTE | 2025-01-08 09:54 | A.OFFVIS_ITS ---
Vital Signs 01/08/25 09:55 Height 5 ft 2 in Intake Visit Reasons: 5 month f/u Conf Allergies Penicillins Adverse Reaction (Intermediate, Verified 01/08/25 09:55) Nausea and Vomiting Medication List - Last Reconciled 01/08/25 by Luann Santoyo CNP anastrozole (Arimidex) 1 mg PO DAILY bismuth subsalicylate 2 tabs PO QID 14 days cefpodoxime 200 mg PO Q12H citalopram 40 mg PO BEDTIME 90 days doxycycline hyclate 100 mg PO BID hydrocortisone 2.5% (Anusol-HC) 1 appl NM BEDTIME PRN hydroxyzine pamoate 25 mg PO BID PRN 90 days levetiracetam (Keppra) 500 mg PO Q12H lorazepam 0.5 mg PO DAILY PRN HPI Comments Details: She was doing okay. No seizures. No medication side effects. No significant dizziness or vertigo recently. No significant headaches recently. Sleep was up and down. Memory was stable. Mood was okay. Completed RT for breast cancer, had lumpectomy and chemo, now on anastrozole. No seizures since starting Keppra in 2018. Previously had episodes of forgetfulness or disorientation, would forget what she was doing or where she was going while walking. She described it as nothing in my mind, episodes occurred every day, lasting up to 10 minutes. She stopped leaving the house alone because of these episodes. She reported decline in her balance and occasional difficulty walking up stairs. Denies LOC. Hx of vertigo. No seizures since 06/29/2017 where she passed out on road trip. She went to use bathroom, dropped to floor, started shaking uncontrollably, bit tongue, cheeks, and was foaming and drooling at the mouth. Went to ER in [place]. Seizure went on for 20 minutes. She was confused for a while. Previous syncope 09/2014. Her tongue was bitten on left, bladder incontinence, and vomited. Remembers being in hospital, has some recall of ambulance. Rare headaches, no migraines. Tylenol and Advil help alleviate headaches. Hx chronic headaches for about 5 years, dull headache although sometimes gets worse. Never had any shingles eruption. No tinnitus or hearing loss. Has vertigo briefly on putting her back or bending forward. 10+ years ago, she was treated with vestibular rehabilitation. PFSH Medical History (Updated 01/02/25 @ 10:29 by Prema Simon CMA) TMJ (dislocation of temporomandibular joint) Syncope Cardiomyopathy Epidermal cyst DCIS (ductal carcinoma in situ) JOSI (generalized anxiety disorder) Mild recurrent major depression GERD (gastroesophageal reflux disease) Invasive ductal carcinoma of left breast Left breast mass Pelvic floor weakness Shortness of breath Daytime sleepiness Snoring Leg weakness Chronic fatigue Depression with anxiety Seizures Surgical History Hx of colonoscopy History of removal of cyst (~03/03/22) History of lumpectomy of left breast H/O abdominoplasty History of breast biopsy History of bilateral breast implants History of tubal ligation Family History Father CVD (cardiovascular disease) Mother Hypertension Daughter No problems noted. Family/Other FH: mental illness Breast cancer Social History Household Members: Spouse, Significant Other and Children Housing: House Alcohol intake: current Alcohol intake frequency: holidays/special occasions only Alcohol type: wine Patient Tobacco Use Status: Current everyday Tobacco user Tobacco use type: Cigarette Cigarette Packs Per Day: 0.5 Cigarettes Per Day: 10.0 Years Smoked: 35 +/- e-Cigarette/Vaping Use: Never Used Second Hand Smoke Exposure: No service: No Current occupational status: unemployed Cognitive needs: No Hearing needs: No Vision needs: Yes Female Reproductive History Menstrual Age of Menarche: 15 Review of Systems Const Denies chills, Denies daytime sleepiness, Reports difficulty sleeping, Denies fatigue, Denies fever(s), Denies frequent falls, Denies headache(s), Denies increased appetite, Denies poor appetite, Reports snoring, Denies weakness, Denies weight gain and Denies weight loss Eyes Denies loss of vision ENT Denies vertigo, Denies dizziness, Denies headache(s) and Reports neck pain Card Denies chest pain at rest, Denies chest pain with activity, Denies syncope, Denies leg edema, Denies palpitations, Denies dyspnea and Denies dyspnea on exertion Resp Denies cough, Denies dyspnea, Denies dyspnea on exertion and Reports snoring GI Denies abdominal pain, Denies constipation, Denies heartburn, Denies diarrhea and Denies nausea Denies urinary frequency, Denies urinary incontinence and Denies urinary urgency Musc Denies abnormal gait, Reports back pain, Reports myalgias, Reports arthralgias, Reports neck pain, Denies numbness and Denies tingling Neuro Denies abnormal gait, Denies vertigo, Denies dizziness, Denies syncope, Denies frequent falls, Denies headache(s), Denies lack of coordination, Denies loss of vision, Denies memory loss, Denies numbness, Denies Other visual disturbances, Denies restless legs, Denies seizure-like activity, Denies tingling, Denies paresthesias, Denies tremor(s) and Denies weakness Psych Reports anxiety, Reports depression, Denies auditory hallucinations, Denies memory loss and Denies visual hallucinations Endo Denies fatigue and Denies palpitations Physical Exam Const Other: General Appearance:? normal, in no acute distress. Heart:? S1, S2 normal, no murmurs. Lungs:? clear anteriorly and posteriorly. Musculoskeletal:? normal. Extremities:? no edema. Psych:? alert, oriented, cognitive function intact, cooperative with exam. Neuro Other: Abnormal Neurological Findings:?Brisk reflexes Mental Status: alert and oriented X 3. Normal attention, orientation, memory, and affect. Cranial Nerves: Pupils are equal, round, and reactive to light. External ocular muscles are intact. Visual mcpherson are full, no ptosis. Face is symmetrical, no facial weakness or droop. Facial sensations are normal. Tongue protrudes in midline. Palate elevates symmetrically. Shoulder shrugging is normal Motor Examination: Normal muscle tone, bulk and strength. No atrophy or fasc iculations. No drift of the extended upper extremities. DTR 3+. Plantars are flexor. Straight Leg Raisin degrees. Sensory Exam: Normal light touch, temperature, pinprick, vibration, and joint- position sensations. Rhomberg sign is absent. Coordination: No ataxia. No titubation. Bilrrw-hk-cjki, lfwd-xups-gmku test, and rapid alternating movements were normal. Gait Exam: Within normal limits. Cerebellar Signs: Honcnw-ft-lqmf and uvfb-yp-hfbj is normal. No dysdiadoch okinesia. Extrapyramidal System: No tremor, rigidity with normal facial expressions. No bradykinesia. No bradyphrenia. Normal arm swing and posture. No propulsion or retropulsion. Speech: Normal. No dysphasia or dysarthria. Assessment & Plan Assessment & Plan (1) Seizures: Code(s): R56.9 - Unspecified convulsions Category: Medical Plan: Continue levetiracetam 500mg 1 tablet twice a day. Coding Level of Care Code Est Pt Level 3 (18987) Diagnoses Seizures R56.9
--- OUTSIDE RECORDS SUMMARY | 2025-01-08 10:26 | XMS_ITS | Clinical Summary ---
Author Organization [facility] Address [address] [place] [phone] Phone Care Team Providers Care Corridor Redevelopment Manager Name Role Phone Beth Youngblood MD Primary Care Provid er Allergies No known active allergies Medications citalopram (CELEXA) 40 MG tablet Take 40 mg by mouth daily. Active hydrOXYzine (ATARAX) 25 MG tablet Take 25 mg by mouth 3 (three) times a day as needed for anxiety. Active levETIRAcetam (KEPPRA) 500 MG tablet Take 500 mg by mouth 2 (two) times a day. Active LORazepam (ATIVAN) 0.5 MG tablet Take 0.5 mg by mouth every 6 (six) hours as needed for anxiety. Active cholecalciferol (VITAMIN D3) 25 MCG (1,000 unit) tablet Take 1,000 Units by mouth daily. Active ibuprofen (ADVIL,MOTRIN) 200 MG tablet Take 200 mg by mouth every 6 (six) hours as needed for pain (specific location in comments). Active Active Problems Problem Noted Date Diagnosed Date Malignant neoplasm of upper- outer quadrant of left breast in female, estrogen receptor positive 05/12/2021 Cancer Staging:Clinical: Unsigned Pathologic:No Stage Recommended(ypT1b, pN0(sn), cM0, G3, ER: Positive, NV: Positive, HER2: Positive) - Signed by Jose Kidd MD on 05/12/2021 Family History Medical History Relation Comments Cancer Paternal Aunt Cancer Paternal Cousin Relation Status Comments Paternal Aunt Paternal Cousin Alive Social History Tobacco Use Types Packs/Day Years Used Date Smoking Tobacco: Some Days Cigarettes Started: 04/29/1985 Tobacco Cessation:Ready to Q uit: Yes Comments:trying to quit Education Answer Date Recorded Are you interested in more education? Not on fernando e 10/07/2022 Are you concerned about learning? Not on file 10/07/2022 No 10/07/2022 No 10/07/2022 Digital Access Answer Date Recorded No 11/05/2022 No 11/05/2022 No 11/05/2022 Reliable internet access at home? Not on file 11/05/2022 Device with a working camera? Not on file Comments No Sex and Gender Information Value Date Recorded Sex Assigned at Female 06/02/2021 11:50 AM EST Legal Sex Female 9:38 PM EDT Gender Identity Female 06/02/2021 11:50 AM EST Sexual Orientation Not on file Last Filed Vital Signs Vital Sign Reading Time Taken Comments Blood Pressure 103/68 02/24/2022 10:48 AM EDT Pulse 77 02/24/2022 10:48 AM EDT Temperature 36.4 C (97.5 F) 06/02/2021 11:48 AM EST Respiratory Rate 18 06/28/2021 12:01 PM EST Oxygen Saturation 99% 02/24/2022 10:48 AM EDT Inhaled Oxygen Concentration - - Weight 62.9 kg (138 lb 9.6 oz) 02/24/2022 10:48 AM EDT Height 157.5 cm (5' 2 ) 06/02/2021 11:48 AM EST Body Mass Index 25.35 06/02/2021 11:48 AM EST Plan of Treatment Health Maintenance Due Date Last Done Comments LIPID PANEL 1967 DEPRESSION SCREENING 1979 SMOKING Hx and SMOKELESS TOBACCO SCREENING 1980 HEPATITIS C SCREENING 1985 HIV ONE-TIME SCREENING (18-6 5 YEARS) 1985 PNEUMOCOCCAL VACCINES (50+ years) (1 of 2 - PCV) 1986 ZOSTER VACCINES (1 of 2) 1986 PAP SMEAR 1988 Adult Td,Tdap Booster 02/15/2010 02/16/2000 COLOGUARD 2012 COLONOSCOPY 2012 COLORECTAL CANCER SCREENING 2012 FIT TEST 2012 FOBT 2012 SIGMOIDOSCOPY 2012 VIRTUAL COLONOSCOPY 2012 MAMMOGRAM 01/25/2023 01/25/2021, 09/10/2020, 09/04/2020 COVID-19 VACCINE (2023-2 5 season) 2024 04/23/2021 SCREENING FOR DIABETES 06/02/2024 06/02/2021 HEPATITIS A VACCINES Aged Out No long er eligible based on patient's age to complete this topic HIB VACCINES Aged Out No longer eligi ble based on patient's age to complete this topic MENINGOCOCCAL VACCINES (ACWY) Aged Out No longer eligible based on patient's age to complete this topic MENINGOCOCCAL VACCINES (B) Aged Out N o longer eligible based on patient's age to complete this topic Medical Devices Not on file Procedures Procedure Name Priority Date/Time Associated Diagnosis Comments BI MAMMOGRAM OUTSIDE (NO INTERPRETATION) Routine 01/25/2021 12:00 AM EDT from Last 3 Months or Most Recently Relevant to Health Maintenance Results * Mammogram Outside (No Interpretation) (01/25/2021 12:00 AM EDT) Narrative SYSTEMGENERATED, DOCUMENTATION - 04/27/2021 1:03 PM EST This study is for PACS storage only and not for interpretation. us Provider Not In System PhD IMG OUTSIDE IMAGING W /OUT INTERPRETATION Final Result from Last 3 Months or Most Recently Relevant to Health Maintenance Insurance [facility] & B [place] MEDICARE PART A & [facility] B [facility] Care Teams Corridor Redevelopment Manager Relationship Specialty Start Date End Date Beth Youngblood MD [address] [place] [address] PCP - General Internal Medicine 06/02/21 Additional Source Comments The information contained in this document represents components of the legal health record. It is not the complete legal health record.[facility]
== END 2025-01-08 10:07 | disposition home or self-care (01) ==
LOC: HO.HSM 09:48
PROVIDERS: PCP Internal Medicine; Visit Provider Registered Nurse
DX: R56.9 Unspecified convulsions (principal)
CPT/HCPCS: 99213

== ENCOUNTER → 2025-01-08 09:47 | Outpatient (BNVA) | payer MEDICARE, MEDICAID, SELFPAY | PROVIDERS: PCP Internal Medicine; Visit Provider Registered Nurse | DX: R56.9 Unspecified convulsions (principal); Z79.899 Other long term (current) drug therapy | CPT/HCPCS: 99212 ==

== ENCOUNTER 2025-02-26 14:01 | Outpatient (AMB) | payer MEDICARE, MEDICAID, SELFPAY ==
[2025-02-26 14:08] VITALS: BP 110/66; PULSE 80; RESP 18; TEMP 36.2; O2SAT 98; BMI 27.9
--- NOTE | 2025-02-26 14:08 | MHC.PC.OV ---
Vital Signs 02/26/25 14:08 Height 5 ft 2 in Weight 152 lb 8 oz BMI 27.9 BP 110/66 Blood Pressure Location Rt brachial Position Sitting Respiration 18 Pulse 80 Pulse Source Pulse Oximeter Temp 97.1 F Temp Source Temporal Artery Scan Pulse Oximetry (%) 98 Oxygen Delivery Method Room Air Intake Visit Reasons: depression, seizures Blending Kettle Tender Required: No Accompanied by: Self / Same As Patient Allergies Penicillins Adverse Reaction (Intermediate, Verified 02/26/25 14:22) Nausea and Vomiting Medication List - Last Reconciled 02/26/25 by Beth Walter MD anastrozole (Arimidex) 1 mg PO DAILY citalopram 40 mg PO BEDTIME 90 days hydrocortisone 2.5% (Anusol-HC) 1 appl GA BEDTIME PRN hydroxyzine pamoate 25 mg PO BID PRN 90 days levetiracetam (Keppra) 500 mg PO Q12H lorazepam 0.5 mg PO DAILY PRN Tobacco use date assessed: 08/24/23 Dental Screening Dental Screen Date: 02/26/25 Did you have a dental visit in the last 12 months?: No Did you have a dental problem in the last 6 months where you did not have access to dental care?: No Was dental information given to patient?: No HPI HPI Comments History of Present Illness Details The patient is a 59-year-old female presenting with joint pain and concerns about her ongoing breast cancer treatment. The patient has a history of breast cancer for which she is currently taking anastrozole. She anticipates completing this treatment next year and is eager to finish it due to its side effects. She underwent a mammogram less than a year ago, which was normal. The patient reports experiencing depression with anxiety, for which she is taking citalopram 40 mg. She continues to see her therapist and psychiatrist, although she feels restless at times. She has a seizure disorder managed with Keppra, and she has not experienced any recent seizures. She has a follow-up appointment with neurology scheduled. The patient reports polyarthritis, with joint pain persisting for several months. She experiences difficulty climbing stairs and requires assistance to stand from a seated position. Laboratory tests are planned to evaluate for other types of arthritis and vitamin deficiencies, including vitamin D. [facility] Medical History (Updated 02/26/25 @ 14:28 by Beth Walter MD) TMJ (dislocation of temporomandibular joint) Syncope Cardiomyopathy Epidermal cyst DCIS (ductal carcinoma in situ) JOSI (generalized anxiety disorder) Mild recurrent major depression GERD (gastroesophageal reflux disease) Invasive ductal carcinoma of left breast Left breast mass Pelvic floor weakness Shortness of breath Daytime sleepiness Snoring Leg weakness Chronic fatigue Depression with anxiety Seizures Surgical History Hx of colonoscopy History of removal of cyst (~03/03/22) History of lumpectomy of left breast H/O abdominoplasty History of breast biopsy History of bilateral breast implants History of tubal ligation Family History Father CVD (cardiovascular disease) Mother Hypertension Daughter No problems noted. Family/Other FH: mental illness Breast cancer Social History Household Members: Spouse, Significant Other and Children Housing: House Alcohol intake: current Alcohol intake frequency: holidays/special occasions only Alcohol type: wine Patient Tobacco Use Status: Current everyday Tobacco user Tobacco use type: Cigarette Cigarette Packs Per Day: 0.5 Cigarettes Per Day: 10.0 Years Smoked: 35 +/- e-Cigarette/Vaping Use: Never Used Second Hand Smoke Exposure: No service: No Current occupational status: unemployed Cognitive needs: No Hearing needs: No Vision needs: Yes Female Reproductive History Menstrual Age of Menarche: 15 Questionnaire PHQ-9 Over the last 2 weeks, how often have you been bothered by any of the following problems? 1. Little interest or pleasure in doing things: several days 2. Feeling down, depressed, or hopeless: more than half the days 3. Trouble falling or staying asleep, or sleeping too much: several days 4. Feeling tired or having little energy: more than half the days 5. Poor appetite or overeating: nearly every day 6. Feeling bad about yourself - or that you are a failure or have let yourself or your family down: more than half the days 7. Trouble concentrating on things, such as reading the newspaper or watching television: several days 8. Moving or speaking so slowly that other people could have noticed. Or the opposite - being so fidgety or restless that you have been moving around a lot more than usual: several days 9. Thoughts that you would be better off or of hurting yourself in some way: not at all Total score: 13 Depression Screening Interpretation: Positive Depression Screening Follow-up: Existing condition, In treatment and Follow-up Visit Requested Depression Screening Done: Yes 62840 - PHQ-9 Billing: Yes Source: Developed by Drs. Wes Bryan, Nilsa Munoz, Jose Almazan and colleagues, with an educational bay from [employer]. Thrive Questionnaire Date Thrive assessed: 08/24/23 I am a: Patient What is your living situation today?: I have a steady place to live Within the past 12 months, did the food you bought not last and you didn't have the money to get more?: Sometimes True Within the past 12 months, did you worry whether your food would run out before you got money to buy more?: Sometimes True Do you have trouble paying for medicines?: No Do you have trouble getting transportation to medical appointments?: No Do you have trouble paying your heating and electricity bill?: No Do you have trouble taking care of your child, family member or friend?: No Do you have trouble with day-to-day activities such as bathing, preparing meals, shopping, managing finances, etc.?: I choose not to answer this question Are you currently unemployed and looking for a job?: No Are you interested in more education?: I choose not to answer this question Please select the resources that you would like help with: None Currently or been in a relationship where the following occur: I choose not to answer THRIVE Score: 2 AUDIT C Alcohol Use Questionnaire (AUDIT-C) 1. How often do you have a drink containing alcohol?: Never 2. How many drinks containing alcohol do you have on a typical day when you are drinking?: 1 or 2 3. How often do you have six or more drinks on one occasion?: Never Total Score: 0 Score Reviewed/Action Taken: No JOSI-7 AMB Questionnaire JOSI-7 Date JOSI - 7 assessed: 08/26/24 Feeling nervous, anxious, or on edge: 1 = Several days Not being able to stop or control worryin = More than half the days Worrying too much about different things: 1 = Several days Trouble relaxin = More than half the days Being so restless that it is hard to sit still: 2 = More than half the days Becoming easily annoyed or irritable: 0 = Not at all Feeling afraid as if something awful might happen: 1 = Several days Total JOSI-7 score (0-4 normal; 5-9 mild; 10-14 moderate; 15-21 severe): 9 Source: Developed by Drs. Wes Bryan, Nilsa Munoz, Jose Almazan and colleagues, with an educational bay from [employer]. JOSI-7 Assessment Billing JOSI-7 Assessment Tool: JOSI-7 Assessment 92642 Review of Systems Const All systems reviewed & are unremarkable except as noted in HPI and below Card Denies chest pain at rest, Denies chest pain with activity, Denies edema, Denies irregular heart rhythm, Denies claudication, Denies dyspnea, Denies dyspnea on exertion, Denies orthopnea, Denies paroxysmal nocturnal dyspnea and Denies slow heart rate Resp Denies cough, Denies dyspnea and Denies dyspnea on exertion Physical exam (Primary Care) Vital Signs: Last Vital Signs Temp 97.1 F 02/26/25 14:08 Pulse 80 02/26/25 14:08 Resp 18 02/26/25 14:08 BP 110/66 02/26/25 14:08 Pulse Ox 98 02/26/25 14:08 Oxygen Delivery Method Room Air 02/26/25 14:08 BMI result Body Mass Index 27.9 Tobacco/Smoking Status: Tobacco use Status Tobacco use date assessed 08/24/23 02/26/25 14:16 Patient Tobacco Use Status Current everyday Tobacco 02/26/25 14:16 Tobacco use type Cigarette 02/26/25 14:16 e-Cigarette/Vaping Use Never Used 02/26/25 14:16 PHQ-9: PHQ-9 Score PHQ-9: Total score 13 02/26/25 14:16 Depression Screening Interpretation: Positive Depression Screening Follow-up: Existing condition, In treatment and Follow-up Visit Requested Thrive Assessment: Date of Thrive Assessment Date Thrive assessed 08/24/23 02/26/25 14:16 Currently or been in a relationship where the following occur: I choose not to answer Resp Effort & Inspection: normal respiratory effort Auscultation: clear to auscultation bilaterally Cardio Jugular venous distension: no JVD Rate: regular rate Rhythm: regular rhythm Heart sounds: S1 normal heart sound present and S2 normal heart sound present Extrem General: Yes full ROM Coding Level of Care Code Est Pt Level 4 (31668) Complex EM visit Add On G2211 Diagnoses Polyarthralgia M25.50 Moderate recurrent major depression F33.1 JOSI (generalized anxiety disorder) F41.1 Invasive ductal carcinoma of left breast C50.912 Seizures R56.9 Chronic fatigue R53.82 Additional Codes PHQ-9 - 95267 - PHQ-9 Billing: Yes ([id number]) JOSI-7 Assessment Billing - JOSI-7 Assessment Tool: JOSI-7 Assessment 18137 ([id number]) Time Spent (min) 24 Assessment & Plan Assessment & Plan (1) Polyarthralgia: Code(s): M25.50 - Pain in unspecified joint Category: Medical (2) Moderate recurrent major depression: Code(s): F33.1 - Major depressive disorder, recurrent, moderate Category: Medical (3) JOSI (generalized anxiety disorder): Code(s): F41.1 - Generalized anxiety disorder Category: Medical (4) Invasive ductal carcinoma of left breast: Code(s): C50.912 - Malignant neoplasm of unspecified site of left female breast Category: Medical (5) Seizures: Code(s): R56.9 - Unspecified convulsions Category: Medical (6) Chronic fatigue: Code(s): R53.82 - Chronic fatigue, unspecified Category: Medical Plan Plan Patient was informed and verbally consented to the use of an ambient scribe for clinic note documentation during this visit. 1. Breast Cancer The patient is currently on anastrozole for breast cancer treatment, which is expected to conclude next year. A recent mammogram was normal, and she is eager to complete her treatment due to side effects. 2. Depression With Anxiety The patient is on citalopram 40 mg for depression with anxiety and continues therapy with her psychiatrist and therapist. She reports feeling restless at times, indicating a need for ongoing monitoring. 3. Seizure Disorder The patient's seizure disorder is managed with Keppra, and she has not experienced any recent seizures. She has a follow-up appointment with neurology to ensure continued stability. 4. Polyarthritis The patient reports persistent joint pain and difficulty with mobility, such as climbing stairs. Laboratory tests are planned to evaluate for other types of arthritis and vitamin deficiencies, including vitamin D. 5. Vitamin D Deficiency Vitamin D deficiency is suspected as a contributing factor to the patient's joint pain. Laboratory tests will be conducted to confirm this deficiency and guide supplementation. Orders: Orders Erythrocyte Sedimentation Rate Today M25.50 - Pain in unspecified joint Vitamin D 25-OH Total Today E55.9 - Vitamin D deficiency, unspecified, M25.50 - Pain in unspecified joint Complete Blood Count Auto Diff Today D64.9 - Anemia, unspecified, M25.50 - Pain in unspecified joint Vitamin B12 and Folate Today E53.8 - Deficiency of other specified B group vitamins Lipid Panel Today E78.5 - Hyperlipidemia, unspecified Cyclic Citrullinated Peptide Today M25.50 - Pain in unspecified joint Rheumatoid Factor Today M25.50 - Pain in unspecified joint C Reactive Protein Today M25.50 - Pain in unspecified joint Thyroid Stimulating Hormone Today M25.50 - Pain in unspecified joint Referrals Rheumatology Referral M25.50 - Pain in unspecified joint
--- OUTSIDE RECORDS SUMMARY | 2025-02-26 17:45 | XMS_ITS | Encounter Summary ---
Author Organization [facility] Address [address] [facility] [address] [place] [address] Phone Care Team Providers Care Tool Adjuster Name Role Phone Jes Singh Primary Care Provider [phone] Beth Youngblood MD Primary Care Provid er Encounter Details Date Type Department Care Team (Late st Contact Info) Description 04/27/2021 Ancillary Orders [facility],Outside Imaging [address] [place] [address] System, Provider Not In, PhD Partners [address] [address] Social History Tobacco Use Types Packs/Day Years Used Date Smoking Tobacco: Never Assessed Comments Unknown Sex and Gender Information Value Date Recorded Sex Assigned at Female 06/02/2021 11:50 AM EST Legal Sex Female 9:38 PM EDT Gender Identity Female 06/02/2021 11:50 AM EST Sexual Orientation Not on file documented as of this encounter Plan of Treatment Not on file documented as of this encounter Results * US Breast Outside (No Interpretation) (09/04/2020 12:00 AM EDT) Narrative SYSTEMGENERATED, DOCUMENTATION - 04/27/2021 1:30 PM EST This study is for PACS storage only and not for interpretation. us Provider Not In System PhD IMG OUTSIDE IMAGING W /OUT INTERPRETATION Final Result documented in this encounter Visit Diagnoses Not on filedocumented in this encounter Care Teams Tool Adjuster Relationship Specialty Start Date End Date Jes Singh PA PCP - General Unknown Provider Specialty 04/23/21 Beth Youngblood MD [address] [place] [address] PCP - General Internal Medicine 06/02/21 documented as of this encounter Additional Source Comments The information contained in this document represents components of the legal health record. It is not the complete legal health record.[facility]
--- OUTSIDE RECORDS SUMMARY | 2025-02-26 17:45 | XMS_ITS | Encounter Summary ---
Author Organization [facility] Address [address] [place] [address] Phone Care Team Providers Care Aircraft Machinist Name Role Phone Beth Youngblood MD Primary Care Provid er Encounter Details Date Type Department Care Team (Late st Contact Info) Description 06/02/2021 Procedure Pass [facility], Ct Scan - [address] [address] Social History Tobacco Use Types Packs/Day Years Used Date Smoking Tobacco: Some Days Cigarettes Started: 04/29/1985 Comments:trying to quit Comments No Sex and Gender Information Value Date Recorded Sex Assigned at Female 06/02/2021 11:50 AM EST Legal Sex Female 9:38 PM EDT Gender Identity Female 06/02/2021 11:50 AM EST Sexual Orientation Not on file documented as of this encounter Functional Status * Calculated C-SSRS Risk Score (Lifetime/Recent) Answer Date of Assessment Author No Risk Indicated 06/02/2021 11:49 AM Samantha Kumar RN * [place] Suicide Severity Rating Scale (Screener/Recent Self-Report) Question Answer Date of Assessment Author 1. Wish to be (Past 1 Month) No 021 11:49 AM Samantha Kumar, [place] 2. Non-Specific Active Suici rick Thoughts (Past 1 Month) No 06/02/2021 11:49 AM Samantha Kumar , [place] 6. Suicidal Behavior (Lifetime) No 11:49 AM Samantha Kumar RN documented as of this encounter Plan of Treatment Not on file documented as of this encounter Visit Diagnoses Not on filedocumented in this encounter Care Teams Aircraft Machinist Relationship Specialty Start Date End Date Beth Youngblood MD [address] [place] [address] PCP - General Internal Medicine 06/02/21 documented as of this encounter Additional Source Comments The information contained in this document represents components of the legal health record. It is not the complete legal health record.[facility]
--- OUTSIDE RECORDS SUMMARY | 2025-02-26 17:45 | XMS_ITS | Encounter Summary ---
Author Organization [facility] Address [address] [facility] [address] [place] [address] Phone Care Team Providers Care Guide Setter Name Role Phone Jes Singh Primary Care Provider [phone] Beth Youngblood MD Primary Care Provid er Encounter Details Date Type Department Care Team (Late st Contact Info) Description 04/27/2021 Ancillary Orders [facility],Outside Imaging [address] [place] [address] System, Provider Not In, PhD Partners [address] [address] Social History Tobacco Use Types Packs/Day Years [...] Results * US Breast Outside (No Interpretation) (01/25/2021 12:05 AM EDT) Narrative SYSTEMGENERATED, DOCUMENTATION - 04/27/2021 1:24 PM EST This study is for PACS storage only and not for interpretation. us Provider Not In System PhD IMG OUTSIDE IMAGING W /OUT INTERPRETATION Final Result documented in this encounter Visit Diagnoses Not on filedocumented in this encounter Care Teams Guide Setter Relationship Specialty Start Date End Date Jes Singh PA PCP - General Unknown Provider Specialty 04/23/21 Beth Youngblood MD [address] [place] [address] PCP - General Internal Medicine 06/02/21 documented as of this encounter Additional Source Comments The information contained in this document represents components of the legal health record. It is not the complete legal health record.[facility]
--- OUTSIDE RECORDS SUMMARY | 2025-02-26 17:45 | XMS_ITS | Encounter Summary ---
Author Organization [facility] Address [address] [facility] [address] [place] [address] Phone Care Team Providers Care Drugless Doctor Name Role Phone Jes Singh Primary Care Provider [phone] Beth Youngblood MD Primary Care Provid er Encounter Details Date Type Department Care Team (Late st Contact Info) Description 04/27/2021 Ancillary Orders [facility],Outside Imaging [address] [place] [address] System, Provider Not In, PhD Partners [address] [address] Social History Tobacco Use Types Packs/Day Years [...] documented as of this encounter Results * Mammogram Outside (No Interpretation) (09/04/2020 12:05 AM EDT) Narrative SYSTEMGENERATED, DOCUMENTATION - 04/27/2021 1:33 PM EST This study is for PACS storage only and not for interpretation. us Provider Not In System PhD IMG OUTSIDE IMAGING W /OUT INTERPRETATION Final Result documented in this encounter Visit Diagnoses Not on filedocumented in this encounter Care Teams Drugless Doctor Relationship Specialty Start Date End Date Jes Singh PA PCP - General Unknown Provider Specialty 04/23/21 Beth Youngblood MD [address] [place] [address] PCP - General Internal Medicine 06/02/21 documented as of this encounter Additional Source Comments The information contained in this document represents components of the legal health record. It is not the complete legal health record.[facility]
--- OUTSIDE RECORDS SUMMARY | 2025-02-26 17:45 | XMS_ITS | Encounter Summary ---
Author Organization [facility] Address [address] [facility] [address] [place] [address] Phone Care Team Providers Care Solar Photovoltaic Designer Name Role Phone Jes Singh Primary Care Provider Beth Youngblood MD Primary Care Provid er Encounter Details Date Type Department Care Team (Late st Contact Info) Description 04/27/2021 Ancillary Orders [facility],Outside Imaging [address] [place] [address] System, Provider Not In, PhD Partners [address] [address] Social History Tobacco Use Types Packs/Day Years [...] encounter Results * Mammogram Outside (No Interpretation) (09/10/2020 12:15 AM EDT) Narrative SYSTEMGENERATED, DOCUMENTATION - 04/27/2021 1:29 PM EST This study is for PACS storage only and not for interpretation. us Provider Not In System PhD IMG OUTSIDE IMAGING W /OUT INTERPRETATION Final Result documented in this encounter Visit Diagnoses Not on filedocumented in this encounter Care Teams Solar Photovoltaic Designer Relationship Specialty Start Date End Date Jes Singh PA PCP - General Unknown Provider Specialty 04/23/21 Beth Youngblood MD [address] [place] [address] PCP - General Internal Medicine 06/02/21 documented as of this encounter Additional Source Comments The information contained in this document represents components of the legal health record. It is not the complete legal health record.[facility]
--- OUTSIDE RECORDS SUMMARY | 2025-02-26 17:45 | XMS_ITS | Encounter Summary ---
Author Organization [facility] Address [address] [facility] [address] [place] [address] Phone Care Team Providers Care It Application Development Manager Name Role Phone Beth Youngblood MD Primary Care Provid er Encounter Details Date Type Department Care Team (Late st Contact Info) Description 06/02/2021 Procedure Pass [facility], Ct Scan - [address] [address] Social History Tobacco Use Types Packs/Day Years [...] 06/02/2021 11:49 AM Samantha Kumar RN * [place] Suicide Severity Rating Scale (Screener/Recent Self-Report) Question [...] on filedocumented in this encounter Care Teams It Application Development Manager Relationship Specialty Start Date End Date Beth Youngblood MD [address] [place] [address] PCP - General Internal Medicine 06/02/21 documented as of this encounter Additional Source Comments The information contained in this document represents components of the legal health record. It is not the complete legal health record.[facility]
--- OUTSIDE RECORDS SUMMARY | 2025-02-26 17:45 | XMS_ITS | Clinical Summary ---
Author Organization [facility] Address [address] [facility] [address] [place] [address] Phone Care Team Providers Care Websphere Portal Developer Name Role Phone Beth Youngblood MD Primary [...] COLONOSCOPY 2012 MAMMOGRAM 01/25/2023 01/25/2021, 09/10/2020, 09/04/2020 INFLUENZA VACCINE (#1) 2025 , 04/30/2020 COVID-19 VACCINE (2024-07 6 season) 2025 04/23/2021 HEPATITIS A VACCINES Aged Out No long [...] Maintenance Insurance MEDICARE PART A & B [facility] B [facility] MED[facility] A & B [facility] A & [facility] & B [place] MED[place] PART A & B HEALTH MEDICARE PART A & B [facility] Care Teams Websphere Portal Developer Relationship Specialty Start Date End Date Beth Youngblood MD [address] [place] [address] PCP - General Internal Medicine 06/02/21 Additional Source Comments The information contained in this document represents components of the legal health record. It is not the complete legal health record.[facility]
--- OUTSIDE RECORDS SUMMARY | 2025-02-26 17:45 | XMS_ITS | Encounter Summary ---
Author Organization [facility] Address [address] [facility] [address] [place] [address] Phone Care Team Providers Care Health Information Assistant Name Role Phone Jes Singh Primary Care Provider [phone] Beth Youngblood MD Primary Care Provid er Encounter Details Date Type Department Care Team (Late st Contact Info) Description 04/27/2021 Ancillary Orders [facility],Outside Imaging [address] [place] [address] System, Provider Not In, PhD [address] [address] Social History Tobacco Use Types Packs/Day Years [...] on filedocumented in this encounter Care Teams Health Information Assistant Relationship Specialty Start Date End Date Jes Singh PA PCP - General Unknown Provider Specialty 04/23/21 Beth Youngblood MD [address] [place] [address] PCP - General Internal Medicine 06/02/21 documented as of this encounter Additional Source Comments The information contained in this document represents components of the legal health record. It is not the complete legal health record.[facility]
--- OUTSIDE RECORDS SUMMARY | 2025-02-26 17:45 | XMS_ITS | Encounter Summary ---
Author Organization [facility] Address [address] [facility] [address] [place] [address] Phone Care Team Providers Care Composite Bond Technician Name Role Phone Jes Singh Primary Care Provider [phone] Beth Youngblood MD Primary Care Provid er Encounter Details Date Type Department Care Team (Late st Contact Info) Description 04/27/2021 Ancillary Orders [facility],Outside Imaging [address] [place] [address] System, Provider Not In, PhD Partners [address] [address] Social History Tobacco Use Types Packs/Day Years [...] Results * US Breast Outside (No Interpretation) (09/10/2020 12:05 AM EDT) Narrative SYSTEMGENERATED, DOCUMENTATION - 04/27/2021 1:26 PM EST This study is for PACS storage only and not for interpretation. us Provider Not In System PhD IMG OUTSIDE IMAGING W /OUT INTERPRETATION Final Result documented in this encounter Visit Diagnoses Not on filedocumented in this encounter Care Teams Composite Bond Technician Relationship Specialty Start Date End Date Jes Singh PA PCP - General Unknown Provider Specialty 04/23/21 Beth Youngblood MD [address] [place] [address] PCP - General Internal Medicine 06/02/21 documented as of this encounter Additional Source Comments The information contained in this document represents components of the legal health record. It is not the complete legal health record.[facility]
--- OUTSIDE RECORDS SUMMARY | 2025-02-26 17:45 | XMS_ITS | Encounter Summary ---
Author Organization [facility] Address [address] [facility] [address] [place] [address] Phone Care Team Providers Care Security Guards Dispatcher Name Role Phone Jes Singh Primary Care Provider [phone] Beth Youngblood MD Primary Care Provid er Encounter Details Date Type Department Care Team (Late st Contact Info) Description 04/27/2021 Ancillary Orders [facility],Outside Imaging [address] [place] [address] System, Provider Not In, PhD Partners [address] [address] Social History Tobacco Use Types Packs/Day Years [...] encounter Results * Mammogram Outside (No Interpretation) (01/25/2021 12:00 AM EDT) Narrative SYSTEMGENERATED, DOCUMENTATION - 04/27/2021 1:03 PM EST This study is for PACS storage only and not for interpretation. us Provider Not In System PhD IMG OUTSIDE IMAGING W /OUT INTERPRETATION Final Result documented in this encounter Visit Diagnoses Not on filedocumented in this encounter Care Teams Security Guards Dispatcher Relationship Specialty Start Date End Date Jes Singh PA PCP - General Unknown Provider Specialty 04/23/21 Beth Youngblood MD [address] [place] [address] PCP - General Internal Medicine 06/02/21 documented as of this encounter Additional Source Comments The information contained in this document represents components of the legal health record. It is not the complete legal health record.[facility]
--- OUTSIDE RECORDS SUMMARY | 2025-02-26 17:45 | XMS_ITS | Encounter Summary ---
Author Organization [facility] Address [address] [facility] [address] [place] [address] Phone Care Team Providers Care Icing Maker Name Role Phone Jes Singh Primary Care Provider [phone] Beth Youngblood MD Primary Care Provid er Encounter Details Date Type Department Care Team (Late st Contact Info) Description 04/27/2021 Ancillary Orders [facility],Outside Imaging [address] [place] [address] System, Provider Not In, PhD Partners [address] [address] Social History Tobacco Use Types Packs/Day Years [...] * US Breast Outside (No Interpretation) (09/10/2020 12:00 AM EDT) Narrative SYSTEMGENERATED, DOCUMENTATION - 04/27/2021 1:25 PM EST This study is for PACS storage only and not for interpretation. us Provider Not In System PhD IMG OUTSIDE IMAGING W /OUT INTERPRETATION Final Result documented in this encounter Visit Diagnoses Not on filedocumented in this encounter Care Teams Icing Maker Relationship Specialty Start Date End Date Jes Singh PA PCP - General Unknown Provider Specialty 04/23/21 Beth Youngblood MD [address] [place] [address] PCP - General Internal Medicine 06/02/21 documented as of this encounter Additional Source Comments The information contained in this document represents components of the legal health record. It is not the complete legal health record.[facility]
== END 2025-02-26 14:33 | disposition home or self-care (01) ==
LOC: HO.HMCH 14:02
PROVIDERS: PCP Internal Medicine; Visit Provider Internal Medicine
DX: M25.50 Pain in unspecified joint (principal); F33.1 Major depressive disorder, recurrent, moderate; C50.912 Malignant neoplasm of unspecified site of left female breast; R56.9 Unspecified convulsions; F41.1 Generalized anxiety disorder; R53.82 Chronic fatigue, unspecified

== ENCOUNTER → 2025-02-26 14:01 | Outpatient (BNVA) | payer MEDICARE, MEDICAID, SELFPAY | PROVIDERS: PCP Internal Medicine; Visit Provider Internal Medicine | DX: F41.1 Generalized anxiety disorder (principal); G40.909 Epilepsy, unspecified, not intractable, without status epilepticus; M25.50 Pain in unspecified joint; F33.1 Major depressive disorder, recurrent, moderate; C50.912 Malignant neoplasm of unspecified site of left female breast; Z79.899 Other long term (current) drug therapy | CPT/HCPCS: 96127; 99212 ==

== ENCOUNTER 2025-03-24 10:39 | Outpatient (REF) | payer MEDICARE, MEDICAID, SELFPAY ==
--- OUTSIDE RECORDS SUMMARY | 2025-03-24 10:43 | XMS_ITS | Encounter Summary ---
Author Organization [facility] Address [address] [facility] [address] [place] [address] Phone Care Team Providers Care Country Sales Manager Name Role Phone Jes Singh Primary Care Provider [phone] Beth Youngblood MD Primary Care Provid er Encounter Details Date Type Department Care Team (Late st Contact Info) Description 04/27/2021 Ancillary Orders [facility],Outside Imaging [address] [place] [address] System, Provider Not In, PhD Partners [address] [address] Social History Tobacco Use Types Packs/Day Years [...] on filedocumented in this encounter Care Teams Country Sales Manager Relationship Specialty Start Date End Date Jes Singh PA PCP - General Unknown Provider Specialty 04/23/21 Beth Youngblood MD [address] [place] [address] PCP - General Internal Medicine 06/02/21 documented as of this encounter Additional Source Comments The information contained in this document represents components of the legal health record. It is not the complete legal health record.[facility]
--- OUTSIDE RECORDS SUMMARY | 2025-03-24 10:43 | XMS_ITS | Encounter Summary ---
Author Organization [facility] Address [address] [facility] [address] [place] [address] Phone Care Team Providers Care Plugging Machine Operator Name Role Phone Jes Singh Primary Care Provider [phone] Beth Youngblood MD Primary Care Provid er Encounter Details Date Type Department Care Team (Late st Contact Info) Description 04/27/2021 Ancillary Orders [facility],Outside Imaging [address] [place] [address] System, Provider Not In, PhD Partners [address] [address] Social History Tobacco Use Types Packs/Day Years [...] on filedocumented in this encounter Care Teams Plugging Machine Operator Relationship Specialty Start Date End Date Jes Singh PA PCP - General Unknown Provider Specialty 04/23/21 Beth Youngblood MD [address] [place] [address] PCP - General Internal Medicine 06/02/21 documented as of this encounter Additional Source Comments The information contained in this document represents components of the legal health record. It is not the complete legal health record.[facility]
--- OUTSIDE RECORDS SUMMARY | 2025-03-24 10:43 | XMS_ITS | Encounter Summary ---
Author Organization [facility] Address [address] [facility] [address] [place] [address] Phone Care Team Providers Care Utility Sales Representative Name Role Phone Beth Youngblood MD Primary Care Provid er Encounter Details Date Type Department Care Team (Late st Contact Info) Description 06/02/2021 Procedure Pass [facility], Ct Scan - [address] [address] Social History Tobacco Use Types Packs/Day Years [...] 06/02/2021 11:49 AM Samantha Kumar RN * [place] Suicide Severity Rating Scale (Screener/Recent Self-Report) Question Answer Date of Assessment Author 1. Wish to be (Past 1 Month) No 021 11:49 AM Samantha Kumar, [place] 2. Non-Specific Active Suici rick Thoughts (Past 1 Month) No 06/02/2021 11:49 AM Samantha Kumar , [place] 6. Suicidal Behavior (Lifetime) No 11:49 AM Samantha Kumar RN documented as of this encounter Plan of Treatment Not on file documented as of this encounter Visit Diagnoses Not on filedocumented in this encounter Care Teams Utility Sales Representative Relationship Specialty Start Date End Date Beth Youngblood MD [address] [place] [address] PCP - General Internal Medicine 06/02/21 documented as of this encounter Additional Source Comments The information contained in this document represents components of the legal health record. It is not the complete legal health record.[facility]
--- OUTSIDE RECORDS SUMMARY | 2025-03-24 10:43 | XMS_ITS | Encounter Summary ---
Author Organization [facility] Address [address] [facility] [address] [facility] [address] [place] [address] Phone Care Team Providers Care Management Specialist Name Role Phone Beth Youngblood MD Primary Care Provid er Encounter Details Date Type Department Care Team (Late st Contact Info) Description 06/02/2021 Procedure Pass [facility], Ct Scan - [address] [address] Social History Tobacco Use Types Packs/Day Years [...] 06/02/2021 11:49 AM Samantha Kumar RN * [place] Suicide Severity Rating Scale (Screener/Recent Self-Report) Question [...] on filedocumented in this encounter Care Teams Management Specialist Relationship Specialty Start Date End Date Beth Youngblood MD [address] [place] [address] PCP - General Internal Medicine 06/02/21 documented as of this encounter Additional Source Comments The information contained in this document represents components of the legal health record. It is not the complete legal health record.[facility]
--- OUTSIDE RECORDS SUMMARY | 2025-03-24 10:43 | XMS_ITS | Encounter Summary ---
Author Organization [facility] Address [address] [facility] [address] [place] [address] Phone Care Team Providers Care Program Management Analyst Name Role Phone Jes Singh Primary Care Provider [phone] Beth Youngblood MD Primary Care Provid er Encounter Details Date Type Department Care Team (Late st Contact Info) Description 04/27/2021 Ancillary Orders [facility],Outside Imaging [address] [place] [address] System, Provider Not In, PhD Partners [address] [address] Social History Tobacco Use Types Packs/Day Years [...] on filedocumented in this encounter Care Teams Program Management Analyst Relationship Specialty Start Date End Date Jes Singh PA PCP - General Unknown Provider Specialty 04/23/21 Beth Youngblood MD [address] [place] [address] PCP - General Internal Medicine 06/02/21 documented as of this encounter Additional Source Comments The information contained in this document represents components of the legal health record. It is not the complete legal health record.[facility]
--- OUTSIDE RECORDS SUMMARY | 2025-03-24 10:43 | XMS_ITS | Encounter Summary ---
Author Organization [facility] Address [address] [facility] [address] [place] [address] Phone Care Team Providers Care Speech Language Pathology Assistant Name Role Phone Jes Singh Primary Care Provider [phone] Beth Youngblood MD Primary Care Provid er Encounter Details Date Type Department Care Team (Late st Contact Info) Description 04/27/2021 Ancillary Orders [facility],Outside Imaging [address] [place] [address] System, Provider Not In, PhD Partners [address] [address] Social History Tobacco Use Types Packs/Day Years [...] on filedocumented in this encounter Care Teams Speech Language Pathology Assistant Relationship Specialty Start Date End Date Jes Singh PA PCP - General Unknown Provider Specialty 04/23/21 Beth Youngblood MD [address] [place] [address] PCP - General Internal Medicine 06/02/21 documented as of this encounter Additional Source Comments The information contained in this document represents components of the legal health record. It is not the complete legal health record.[facility]
--- OUTSIDE RECORDS SUMMARY | 2025-03-24 10:43 | XMS_ITS | Encounter Summary ---
Author Organization [facility] Address [address] [facility] [address] [place] [address] Phone Care Team Providers Care Ios Architect Name Role Phone Jes Singh Primary Care Provider [phone] Beth Youngblood MD Primary Care Provid er Encounter Details Date Type Department Care Team (Late st Contact Info) Description 04/27/2021 Ancillary Orders [facility],Outside Imaging [address] [place] [address] System, Provider Not In, PhD Partners [address] [address] Social History Tobacco Use Types Packs/Day Years [...] on filedocumented in this encounter Care Teams Ios Architect Relationship Specialty Start Date End Date Jes Singh PA PCP - General Unknown Provider Specialty 04/23/21 Beth Youngblood MD [address] [place] [address] PCP - General Internal Medicine 06/02/21 documented as of this encounter Additional Source Comments The information contained in this document represents components of the legal health record. It is not the complete legal health record.[facility]
--- OUTSIDE RECORDS SUMMARY | 2025-03-24 10:43 | XMS_ITS | Clinical Summary ---
Author Organization [facility] Address [address] [facility] [address] [place] [address] Phone Care Team Providers Care Freelance Translator Name Role Phone Beth Youngblood MD Primary [...] Stage Recommended(ypT1b, pN0(sn), cM0, G3, ER: Positive, [place]: Positive, HER2: Positive) - Signed by Jose [...] VACCINE (#1) 2025 , 04/30/2020 COVID-19 VACCINE (2 - 2024-2 6 season) 2025 04/23/2021 RSV VACCINE (1 - 1-dose 75+ series) 2042 HEPATITIS A VACCINES Aged Out No long [...] Maintenance Insurance MEDICARE PART A & [facility] A & [facility] A & [place] [facility] [place] [facility] [place] [facility] & [place] [facility] [place] [facility] & [facility] PART A & B [facility] Care Teams Freelance Translator Relationship Specialty Start Date End Date Beth Youngblood MD [address] [place] [address] PCP - General Internal Medicine 06/02/21 Additional Source Comments The information contained in this document represents components of the legal health record. It is not the complete legal health record.[facility]
--- OUTSIDE RECORDS SUMMARY | 2025-03-24 10:43 | XMS_ITS | Encounter Summary ---
Author Organization [facility] Address [address] [facility] [address] [place] [address] Phone Care Team Providers Care Breeding Manager Name Role Phone Jes Singh Primary Care Provider [phone] Beth Youngblood MD Primary Care Provid er Encounter Details Date Type Department Care Team (Late st Contact Info) Description 04/27/2021 Ancillary Orders [facility],Outside Imaging [address] [place] [address] System, Provider Not In, PhD Partners [address] [address] Social History Tobacco Use Types Packs/Day Years [...] on filedocumented in this encounter Care Teams Breeding Manager Relationship Specialty Start Date End Date Jes Singh PA PCP - General Unknown Provider Specialty 04/23/21 Beth Youngblood MD [address] [place] [address] PCP - General Internal Medicine 06/02/21 documented as of this encounter Additional Source Comments The information contained in this document represents components of the legal health record. It is not the complete legal health record.[facility]
--- OUTSIDE RECORDS SUMMARY | 2025-03-24 10:43 | XMS_ITS | Encounter Summary ---
Author Organization [facility] Address [address] [facility] [address] [place] [address] Phone Care Team Providers Care Potable Water Treatment Operator Name Role Phone Jes Singh Primary Care Provider [phone] Beth Youngblood MD Primary Care Provid er Encounter Details Date Type Department Care Team (Late st Contact Info) Description 04/27/2021 Ancillary Orders [facility],Outside Imaging 30 [place] [address] System, Provider Not In, PhD [facility] [address] [address] Social History Tobacco Use Types Packs/Day Years [...] on filedocumented in this encounter Care Teams Potable Water Treatment Operator Relationship Specialty Start Date End Date Jes Singh PA PCP - General Unknown Provider Specialty 04/23/21 Beth Youngblood MD [address] [place] [address] PCP - General Internal Medicine 06/02/21 documented as of this encounter Additional Source Comments The information contained in this document represents components of the legal health record. It is not the complete legal health record.[facility]
--- OUTSIDE RECORDS SUMMARY | 2025-03-24 10:43 | XMS_ITS | Encounter Summary ---
Author Organization [facility] Address [address] [facility] [address] [place] [address] Phone Care Team Providers Care Material Manager Name Role Phone Jes Singh Primary Care Provider [phone] Beth Youngblood MD Primary Care Provid er Encounter Details Date Type Department Care Team (Late st Contact Info) Description 04/27/2021 Ancillary Orders [facility],Outside Imaging 30 [place] [address] System, Provider Not In, PhD [address] [address] Social History Tobacco Use Types Packs/Day Years [...] on filedocumented in this encounter Care Teams Material Manager Relationship Specialty Start Date End Date Jes Singh PA PCP - General Unknown Provider Specialty 04/23/21 Beht Youngblood MD [address] [place] [address] PCP - General Internal Medicine 06/02/21 documented as of this encounter Additional Source Comments The information contained in this document represents components of the legal health record. It is not the complete legal health record.[facility]
[2025-03-24 10:51] LABS: MANUAL DIFF FLAG NO
[2025-03-24 10:59] LABS: Hematocrit 46.4 % (37.0-47.0); Hemoglobin 14.9 g/dl (12.0-16.0); Imm Gran Abs Auto 0.04 X10*3/uL (0.00-0.03); Imm Gran Pct Auto 0.6 % (0.0-0.4); Lymphocytes Absolute Auto 2.4 X10*3/uL (1.2-4.9); Mean Corpuscular HGB Conc 32.1 g/dl (31.0-35.0); Mean Corpuscular Hemoglobin 28.5 pg (27.0-33.0); Mean Corpuscular Volume 88.9 fL (80.0-98.0); NRBC Abs Auto 0.000 X10*3/uL (0.0-0.012); NRBC Pct Auto 0.0 /100WBC (0.0-0.2); Platelet Count 316 X10*3/uL (160-400); Red Blood Count 5.22 X10*6/uL (4.20-5.50); White Blood Count 7.0 X10*3/uL (4.8-10.8)
[2025-03-24 11:31] LABS: Cholesterol 232 mg/dL (<200); HDL Cholesterol 48 mg/dL (>40); Triglycerides 129 mg/dL (<150)
[2025-03-24 11:46] LABS: Thyroid Stimulating Hormone 2.51 uIU/mL (0.32-4.0)
[2025-03-24 12:00] LABS: Folate 6.4 ng/mL (> or = 4.0); Vitamin B12 772 pg/mL (200-900)
== END 2025-03-24 10:40 | disposition home or self-care (01) ==
LOC: HO.LAB 10:39
PROVIDERS: PCP Internal Medicine; Visit Provider Internal Medicine
DX: E53.8 Deficiency of other specified B group vitamins (principal); D64.9 Anemia, unspecified; E78.5 Hyperlipidemia, unspecified; E55.9 Vitamin D deficiency, unspecified; M25.50 Pain in unspecified joint
CPT/HCPCS: 36415; 80061; 82306; 82607; 82746; 84443; 85025; 85652; 86140; 86200; 86431

== ENCOUNTER 2025-04-04 15:03 | Outpatient (REF) | payer MEDICARE, MEDICAID, SELFPAY ==
--- NOTE | ~2025-04-04 | XR_ITS ---
EXAMINATION: XR CHEST CLINICAL INFORMATION: Shortness of breath COMPARISON: July 30, 2021. TECHNIQUE: PA and lateral views FINDINGS: No consolidation, pleural effusion or pneumothorax. Cardiomediastinal silhouette size is normal. S-shaped curvature of the thoracic spine. Mild multilevel thoracic spondylosis. Degenerative changes in the common clavicular joint. Status post removal of right-sided Port-A-Cath. Bilateral breast implants. Patient's large body habitus. XR/XR ribs LT 2V IMPRESSION: No acute airspace disease. EXAMINATION: XR RIBS, LEFT CLINICAL INFORMATION: Shortness of breath COMPARISON: Correlated to chest x-ray dated July 30, 2021. TECHNIQUE: [Views left hemithorax. Skin iqra placed in the region of concern. FINDINGS: No acute deformities of the ribs left lower hemithorax. Left-sided breast implant. No lytic or blastic lesions. No subcutaneous emphysema. IMPRESSION: No acute rib fracture. Electronically signed by: Horace Novoa MD 04/04/2025 03:29 PM EDT
--- NOTE | ~2025-04-04 | XR_ITS ---
EXAMINATION: XR CHEST CLINICAL INFORMATION: Shortness of breath COMPARISON: July 30, 2021. TECHNIQUE: PA and lateral views FINDINGS: No consolidation, pleural effusion or pneumothorax. Cardiomediastinal silhouette size is normal. S-shaped curvature of the thoracic spine. Mild multilevel thoracic spondylosis. Degenerative changes in the common clavicular joint. Status post removal of right-sided Port-A-Cath. Bilateral breast implants. Patient's large body habitus. XR/XR chest 2V IMPRESSION: No acute airspace disease. EXAMINATION: XR RIBS, LEFT CLINICAL INFORMATION: Shortness of breath COMPARISON: Correlated to chest x-ray dated July 30, 2021. TECHNIQUE: [Views left hemithorax. Skin iqra placed in the region of concern. FINDINGS: No acute deformities of the ribs left lower hemithorax. Left-sided breast implant. No lytic or blastic lesions. No subcutaneous emphysema. IMPRESSION: No acute rib fracture. Electronically signed by: Horace Novoa MD 04/04/2025 03:29 PM EDT
--- OUTSIDE RECORDS SUMMARY | 2025-04-04 16:42 | XMS_ITS | Encounter Summary ---
Author Organization [facility] Address [address] [facility] [address] [place] [address] Phone Care Team Providers Care Rotary Driller Helper Name Role Phone Jes Singh Primary Care Provider [phone] Beth Youngblood MD Primary Care Provid er Encounter Details Date Type Department Care Team (Late st Contact Info) Description 04/27/2021 Ancillary Orders [facility],Outside Imaging [address] [place] [address] System, Provider Not In, PhD Partners [address] [address] Social History Tobacco Use Types Packs/Day Years [...] on filedocumented in this encounter Care Teams Rotary Driller Helper Relationship Specialty Start Date End Date Jes Singh PA PCP - General Unknown Provider Specialty 04/23/21 Beth Youngblood MD [address] [place] [address] PCP - General Internal Medicine 06/02/21 documented as of this encounter Additional Source Comments The information contained in this document represents components of the legal health record. It is not the complete legal health record.[facility]
--- OUTSIDE RECORDS SUMMARY | 2025-04-04 16:42 | XMS_ITS | Encounter Summary ---
Author Organization [facility] Address [address] [facility] [address] [place] [address] Phone Care Team Providers Care Bake Room Worker Name Role Phone Jes Singh Primary Care Provider [phone] Beth Youngblood MD Primary Care Provid er Encounter Details Date Type Department Care Team (Late st Contact Info) Description 04/27/2021 Ancillary Orders [facility],Outside Imaging [address] [place] [address] System, Provider Not In, PhD [facility] [address] [address] Social History Tobacco Use Types Packs/Day Years [...] on filedocumented in this encounter Care Teams Bake Room Worker Relationship Specialty Start Date End Date Jes Singh PA PCP - General Unknown Provider Specialty 04/23/21 Beth Youngblood MD [address] [place] [address] PCP - General Internal Medicine 06/02/21 documented as of this encounter Additional Source Comments The information contained in this document represents components of the legal health record. It is not the complete legal health record.[facility]
--- OUTSIDE RECORDS SUMMARY | 2025-04-04 16:42 | XMS_ITS | Clinical Summary ---
Author Organization [facility] Address [address] [facility] [address] [place] [address] Phone Care Team Providers Care Plaster Caster Name Role Phone Beth Youngblood MD Primary [...] Stage Recommended(ypT1b, pN0(sn), cM0, G3, ER: Positive, [place]: Positive, HER2: Positive) - Signed by Jose [...] Maintenance Insurance [facility]IC[facility] & [facility] [place] [facility] [place] [facility] A & B [facility] Care Teams Plaster Caster Relationship Specialty Start Date End Date Beth Youngblood MD [address] [place] [address] PCP - General Internal Medicine 06/02/21 Additional Source Comments The information contained in this document represents components of the legal health record. It is not the complete legal health record.[facility]
--- OUTSIDE RECORDS SUMMARY | 2025-04-04 16:42 | XMS_ITS | Encounter Summary ---
Author Organization [facility] Address [address] [facility] [address] [place] [address] Phone Care Team Providers Care Safety Consultant Name Role Phone Jes Singh Primary Care Provider [phone] Beth Youngblood MD Primary Care Provid er Encounter Details Date Type Department Care Team (Late st Contact Info) Description 04/27/2021 Ancillary Orders [facility],Outside Imaging [address] [place] [address] System, Provider Not In, PhD Partners [address] [address] Social History Tobacco Use Types Packs/Day Years [...] on filedocumented in this encounter Care Teams Safety Consultant Relationship Specialty Start Date End Date Jes Singh PA PCP - General Unknown Provider Specialty 04/23/21 Beth Youngblood MD [address] [place] [address] PCP - General Internal Medicine 06/02/21 documented as of this encounter Additional Source Comments The information contained in this document represents components of the legal health record. It is not the complete legal health record.[facility]
--- OUTSIDE RECORDS SUMMARY | 2025-04-04 16:42 | XMS_ITS | Encounter Summary ---
Author Organization [facility] Address [address] [facility] [address] [place] [address] Phone Care Team Providers Care Dental Intern Name Role Phone Jes Singh Primary Care Provider [phone] Beth Youngblood MD Primary Care Provid er Encounter Details Date Type Department Care Team (Late st Contact Info) Description 04/27/2021 Ancillary Orders [facility],Outside Imaging 30 [place] [address] System, Provider Not In, PhD Partners [address] [address] Social History Tobacco Use Types Packs/Day Years [...] on filedocumented in this encounter Care Teams Dental Intern Relationship Specialty Start Date End Date Jes Singh PA PCP - General Unknown Provider Specialty 04/23/21 Beth Youngblood MD [address] [place] [address] PCP - General Internal Medicine 06/02/21 documented as of this encounter Additional Source Comments The information contained in this document represents components of the legal health record. It is not the complete legal health record.[facility]
--- OUTSIDE RECORDS SUMMARY | 2025-04-04 16:42 | XMS_ITS | Encounter Summary ---
Author Organization [facility] Address [address] [facility] [address] [place] [address] Phone Care Team Providers Care Vp Of Technology Name Role Phone Jes Singh Primary Care Provider [phone] Beth Youngblood MD Primary Care Provid er Encounter Details Date Type Department Care Team (Late st Contact Info) Description 04/27/2021 Ancillary Orders [facility],Outside Imaging [address] [place] [address] System, Provider Not In, PhD Partners [address] [address] Social History Tobacco Use Types Packs/Day Years [...] on filedocumented in this encounter Care Teams Vp Of Technology Relationship Specialty Start Date End Date Jes Singh PA PCP - General Unknown Provider Specialty 04/23/21 Beth Youngblood MD [address] [place] [address] PCP - General Internal Medicine 06/02/21 documented as of this encounter Additional Source Comments The information contained in this document represents components of the legal health record. It is not the complete legal health record.[facility]
--- OUTSIDE RECORDS SUMMARY | 2025-04-04 16:42 | XMS_ITS | Encounter Summary ---
Author Organization [facility] Address [address] [facility] [address] [place] [address] Phone Care Team Providers Care Field Human Resources Manager Name Role Phone Beth Youngblood MD Primary Care Provid er Encounter Details Date Type Department Care Team (Late st Contact Info) Description 06/02/2021 Procedure Pass [facility], Ct Scan - [address] [address] Social History Tobacco Use Types Packs/Day Years [...] 06/02/2021 11:49 AM Samantha Kumar RN * [place] Suicide Severity Rating Scale (Screener/Recent Self-Report) Question [...] on filedocumented in this encounter Care Teams Field Human Resources Manager Relationship Specialty Start Date End Date Beth Youngblood MD [address] [place] [address] PCP - General Internal Medicine 06/02/21 documented as of this encounter Additional Source Comments The information contained in this document represents components of the legal health record. It is not the complete legal health record.[facility]
--- OUTSIDE RECORDS SUMMARY | 2025-04-04 16:42 | XMS_ITS | Encounter Summary ---
Author Organization [facility] Address [address] [place] [address] Phone Care Team Providers Care Bulb Weeder Name Role Phone Beth Youngblood MD Primary Care Provid er Encounter Details Date Type Department Care Team (Late st Contact Info) Description 06/02/2021 Procedure Pass [facility], Ct Scan - [address] [address] Social History Tobacco Use Types Packs/Day Years [...] 06/02/2021 11:49 AM Samantha Kumar RN * [place] Suicide Severity Rating Scale (Screener/Recent Self-Report) Question [...] on filedocumented in this encounter Care Teams Bulb Weeder Relationship Specialty Start Date End Date Beth Youngblood MD [address] [place] [address] PCP - General Internal Medicine 06/02/21 documented as of this encounter Additional Source Comments The information contained in this document represents components of the legal health record. It is not the complete legal health record.[facility]
--- OUTSIDE RECORDS SUMMARY | 2025-04-04 16:42 | XMS_ITS | Encounter Summary ---
Author Organization [facility] Address [address] [facility] [address] [place] [address] Phone Care Team Providers Care Biological Technician Name Role Phone Jes Singh Primary Care Provider [phone] Beth Youngblood MD Primary Care Provid er Encounter Details Date Type Department Care Team (Late st Contact Info) Description 04/27/2021 Ancillary Orders [facility],Outside Imaging [address] [place] [address] System, Provider Not In, PhD Partners [address] [address] Social History Tobacco Use Types Packs/Day Years [...] on filedocumented in this encounter Care Teams Biological Technician Relationship Specialty Start Date End Date Jes Singh PA PCP - General Unknown Provider Specialty 04/23/21 Beth Youngblood MD [address] [place] [address] PCP - General Internal Medicine 06/02/21 documented as of this encounter Additional Source Comments The information contained in this document represents components of the legal health record. It is not the complete legal health record.[facility]
--- OUTSIDE RECORDS SUMMARY | 2025-04-04 16:42 | XMS_ITS | Encounter Summary ---
Author Organization [facility] Address [address] [facility] [address] [place] [address] Phone Care Team Providers Care Tractor Engine Assembler Name Role Phone Jes Singh Primary Care Provider [phone] Beth Youngblood MD Primary Care Provid er Encounter Details Date Type Department Care Team (Late st Contact Info) Description 04/27/2021 Ancillary Orders [facility],Outside Imaging 30 [place] [address] System, Provider Not In, PhD [address] [address] Social History Tobacco Use Types Packs/Day Years [...] on filedocumented in this encounter Care Teams Tractor Engine Assembler Relationship Specialty Start Date End Date Jes Singh PA PCP - General Unknown Provider Specialty 04/23/21 Beth Youngblood MD [address] [place] [address] PCP - General Internal Medicine 06/02/21 documented as of this encounter Additional Source Comments The information contained in this document represents components of the legal health record. It is not the complete legal health record.[facility]
--- OUTSIDE RECORDS SUMMARY | 2025-04-04 16:42 | XMS_ITS | Encounter Summary ---
Author Organization [facility] Address [address] [facility] [address] [place] [address] Phone Care Team Providers Care Training Professional Name Role Phone Jes Singh Primary Care Provider [phone] Beth Youngblood MD Primary Care Provid er Encounter Details Date Type Department Care Team (Late st Contact Info) Description 04/27/2021 Ancillary Orders [facility],Outside Imaging [address] [place] [address] System, Provider Not In, PhD Partners [address] [address] Social History Tobacco Use Types Packs/Day Years [...] on filedocumented in this encounter Care Teams Training Professional Relationship Specialty Start Date End Date Jes Singh PA PCP - General Unknown Provider Specialty 04/23/21 Beth Youngblood MD [address] [place] [address] PCP - General Internal Medicine 06/02/21 documented as of this encounter Additional Source Comments The information contained in this document represents components of the legal health record. It is not the complete legal health record.[facility]
== END 2025-04-04 15:04 | disposition home or self-care (01) ==
LOC: HO.XRAY 15:03
PROVIDERS: PCP Internal Medicine; Visit Provider Internal Medicine
DX: R07.81 Pleurodynia (principal); R06.02 Shortness of breath
CPT/HCPCS: 71046; 71100

== ENCOUNTER → 2025-04-04 15:08 | Outpatient (BNV) | payer MEDICARE, MEDICAID, SELFPAY | PROVIDERS: PCP Internal Medicine; Visit Provider Radiology Diagnostic Radiology | DX: R07.89 Other chest pain (principal); R06.02 Shortness of breath | CPT/HCPCS: 71046; 71100 ==

== ENCOUNTER 2025-05-15 13:54 | Outpatient (REF) | payer MEDICARE, MEDICAID, SELFPAY ==
--- NOTE | ~2025-05-15 | MM_ITS ---
EXAMINATION: MM SCREENING DIGITAL BREAST TOMOSYNTHESIS, BILATERAL CLINICAL INFORMATION: Screening. Asymptomatic. COMPARISON: Mammography: Comparison is made with relevant avialable priors. TECHNIQUE: Digital mammography is performed in craniocaudal and mediolateral oblique views along with computer-aided detection (CAD). Digital breast tomosynthesis is performed in implant-displaced craniocaudal and implant-displaced mediolateral oblique views along with computer-aided detection (CAD). FINDINGS: There are scattered areas of fibroglandular density. Bilateral retropectoral implants are stable appearing. Left post surgical changes. Right marker clip. Left marker clip. There are no significant masses, abnormal calcifications, or other abnormalities. MM/MM tomosynthesis screen imp BI IMPRESSION: There are no significant changes from prior study. ASSESSMENT: BI-RADS Category 2: Benign RECOMMENDATION: Routine annual mammography screening. 1 year F/U This patient's information was entered into a reminder system with a target due date for their next mammogram. Electronically signed by: Elaine Chilel DO 05/16/2025 02:24 PM [facility]
== END 2025-05-15 13:55 | disposition home or self-care (01) ==
LOC: HO.MAMMO 13:54
PROVIDERS: PCP Internal Medicine; Visit Provider Internal Medicine
DX: Z12.31 Encounter for screening mammogram for malignant neoplasm of breast (principal)
CPT/HCPCS: 77063; 77067

== ENCOUNTER → 2025-05-15 14:15 | Outpatient (BNV) | payer MEDICARE, MEDICAID, SELFPAY | PROVIDERS: PCP Internal Medicine; Visit Provider Internal Medicine | DX: Z12.31 Encounter for screening mammogram for malignant neoplasm of breast (principal) | CPT/HCPCS: 77063; 77067 ==